=== PATIENT | female | born 1955 | race Caucasian/White ===

== ENCOUNTER 2018-08-20 19:50 | Inpatient (IN) | payer MEDICAID, OTHER ==
[~2018-08-20] VITALS: Ht 172.7 cm; Wt 69.5 kg
[~2018-08-20 19:50] MED LIST: NO HOME MEDS
[2018-08-20] MEDS ORDERED: loperamide 2mg capsule PO PRN (20:50)
[2018-08-20] MEDS ORDERED: acetaminophen 325mg tablet PO PRN ×2 (20:50)
[2018-08-20] MEDS ORDERED: mag hydrox/Alum hydrox/simeth 30ml oral suspension PO PRN (20:50)
[2018-08-20] MEDS ORDERED: tuberculin, purif. prot. deriv. 5 units/0.1ml ID ONE (20:50)
[2018-08-20] MEDS ORDERED: magnesium hydroxide 30ml (MOM) UD suspension PO PRN (20:50)
[2018-08-20 21:35] VITALS: BP 100/70
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
[2018-08-20] MEDS: LORazepam 1 MG tablet PO PRN (22:09)
[2018-08-21 07:26] LABS: HEMOGLOBIN A1C 5.2 % (4.5-6.2)
[2018-08-21 07:30] LABS: CHOL/HDL RATIO 2.1 (0.00-4.99); CHOLESTEROL 112 MG/DL (0-200); HDL CHOLESTEROL 53 MG/DL (35-60); LDL CHOLESTEROL 50 MG/DL (50-100); TRIGLYCERIDES 51 MG/DL (20-135)
[2018-08-21 08:00] VITALS: BP 99/57
--- NOTE | 2018-08-21 10:37 | NUR ---
Malnutrition consult: Pt reports 2-13# wt loss with decreased appetite per malnutrition risk screening with RN. No wt hx however patient's current wt appropriate with BMI of 24.8. Per mental health admission assessment pt with some memory loss. Patient with no documented decrease in muscle strength or edema. Pt currently on a regular diet with documented 75-100% PO intake meeting nutrient needs. Pt currently does not meet criteria for malnutrition. LBM 7/ documented as diarrhea, pt with Imodium PRN not yet given. Will continue to follow and monitor need for additional bowel care. Addendum: 08/21/18 at [address] Amended: Links added.
[2018-08-21] MEDS: hydrOXYzine 25 MG tablet PO PRN ×2 (11:54→21:48)
[2018-08-21 12:26] LABS: OCCULT BLOOD STOOL NEGATIVE (Neg)
--- NOTE | 2018-08-21 17:29 | NUR ---
Nursing Progress Note: Legal hold: Voluntary Client on involuntary status for GD Report received from JEROME Benjamin with use of SBAR: Why are they here: Assessment What has happened this shift: Patient asleep at change of shift and awake for breakfast. Patient friendly. Patient keep to herself and slept after group for a couple of hours. Patient went to afternoon group today. Patient denies SI/HI/AV Hallucinations. Patient states she is here because her meds make her have diarrhea x 4 months. Patient's brother sent patient due to screaming and agitation and needing adjustment in her medication. Patient had large BM in her depends which was soft but not diarrhea. Patient placed her depends in a trash can but she couldn't remember which trash can she placed it in. Finally smelly diaper found in orr BR. RN sent sample to lab. S/I, H/I: Denies A/VH: Denies Sleep: Isolates to room and naps ADL's: Self Group attendance: afternoon group Were meds taken: Medication compliant Any med S/E: None reported or observed Mental Status Exam Appearance: neat in green scrubs Eye contact: fair Behavior: Isolates to her room Speech: soft and minimal Mood: Depressed and anxious Affect: Depressed Thought process: Linear but no insight to why she is here Thought Content: Concerned about bowel movements Cognition: A&O x 3 Insight: poor Judgment: poor Interventions PRN's used: Atarax Therapeutic interventions: 1:1 assessment, active listening, medication administration and education, Q15 minute checks, maintained therapeutic milieu. Restraints/seclusion/emergency medication: N/A Justification of Continued Inpatient Treatment: The patient presents as having significant depressive symptoms that they interfere with any kind of self care. He continues to be gravely disabled. Pt needs continued monitoring of medication effectiveness and effects. Addendum: 08/21/18 at 1746 by Tala Conteh RN Undone
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
[2018-08-21 20:00] VITALS: BP 107/74
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
[2018-08-22] MEDS: buPROPion SR 100mg tab PO SCH ×2 (08:07→21:18)
[2018-08-22 08:08] VITALS: BP 117/66
[2018-08-22 11:05] LABS: ALBUMIN 3.3 G/DL (3.4-5.0); ANION GAP 6 (8-16); BLOOD UREA NITROGEN 10 MG/DL (7-18); BUN/CREATININE RATIO 13.2 (6.6-38.0); CALCIUM 8.4 MG/DL (8.5-10.1); CHLORIDE 107 MMOL/L (99-107); CREATININE 0.76 MG/DL (0.40-0.90); GLUCOSE 96 MG/DL (70-104); POTASSIUM 3.6 MMOL/L (3.5-5.1); SODIUM 141 MMOL/L (135-145); TOTAL CARBON DIOXIDE 27.9 MMOL/L (24-32); eGFR 77 ML/MIN
[2018-08-22] MEDS: hydrOXYzine 25 MG tablet PO PRN (13:50)
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
[2018-08-22] MEDS: LORazepam 1 MG tablet PO PRN (18:45)
[2018-08-22 20:00] VITALS: BP 114/59
[2018-08-22] MEDS: prazosin 1mg capsule PO SCH (21:00)
[2018-08-22] MEDS: mirtazapine 15mg tablet PO SCH (21:19)
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
[2018-08-23] MEDS: buPROPion SR 100mg tab PO SCH (07:59)
[2018-08-23 08:00] VITALS: BP 103/63
[2018-08-23] MEDS: hydrOXYzine 25 MG tablet PO PRN (11:09)
[2018-08-23] MEDS: LORazepam 1 MG tablet PO PRN (12:48)
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
--- NOTE | 2018-08-23 18:02 | NUR ---
NOTE ON 08-23-18 @ 4602 IS NOT FOR THIS CLIENT
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
[2018-08-23 20:00] VITALS: BP 101/64
[2018-08-23] MEDS: mirtazapine 15mg tablet PO SCH (20:24)
[2018-08-23] MEDS: buPROPion SR 150mg tablet PO SCH (20:25)
[2018-08-23] MEDS: prazosin 1mg capsule PO SCH (20:27)
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
[2018-08-24] MEDS: buPROPion SR 150mg tablet PO SCH ×2 (07:57→20:06)
[2018-08-24 08:00] VITALS: BP 99/52
[2018-08-24] MEDS: hydrOXYzine 25 MG tablet PO PRN ×2 (10:11→20:05)
[2018-08-24] MEDS: LORazepam 1 MG tablet PO PRN (11:41)
--- NOTE | 2018-08-24 12:59 | NUR ---
Initial: Pt admit to [facility] on voluntary hold for depression. Documented 75-100% PO intake on regular diet meeting nutrient needs. LBM 08/23. No edema or wounds. No nutrition diagnosis at this time. Will continue to follow. Recommendations: 1) Continue regular diet 2) Weekly wt Addendum: 08/24/18 at [address] Amended: Links added.
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
[2018-08-24 19:41] VITALS: BP 101/72
[2018-08-24] MEDS: mirtazapine 15mg tablet PO SCH (20:06)
[2018-08-24] MEDS: prazosin 1mg capsule PO SCH (20:44)
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
[2018-08-25 07:31] VITALS: BP 96/60
[2018-08-25] MEDS: buPROPion SR 150mg tablet PO SCH ×2 (08:15→20:33)
[2018-08-25] MEDS: LORazepam 1 MG tablet PO PRN ×2 (08:25→18:57)
[2018-08-25] MEDS: hydrOXYzine 25 MG tablet PO PRN (16:30)
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
[2018-08-25 20:00] VITALS: BP 119/69
[2018-08-25] MEDS: mirtazapine 15mg tablet PO SCH (20:33)
[2018-08-25] MEDS: prazosin 1mg capsule PO SCH (20:33)
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
[2018-08-26 07:22] VITALS: BP 92/58
[2018-08-26] MEDS: buPROPion SR 150mg tablet PO SCH ×2 (08:09→20:15)
[2018-08-26 08:20] VITALS: BP 95/55
[2018-08-26 08:31] LABS: BASOPHILS % (AUTO) 0.4 % (0-1); EOSINOPHILS # (AUTO) 0.1 X10'3 (0-0.9); EOSINOPHILS % (AUTO) 1.8 % (0-6); HEMATOCRIT 35.9 % (35.0-45.0); HEMOGLOBIN 12.2 g/dl (12.0-16.0); LYMPHOCYTES # (AUTO) 1.7 X10'3 (1.1-4.8); LYMPHOCYTES % (AUTO) 35.2 % (21-51); MEAN CORPUSCULAR HEMOGLOBIN 31.2 PG (27.0-31.0); MEAN CORPUSCULAR HGB CONC 33.9 g/dL (33.0-36.5); MEAN PLATELET VOLUME 6.6 FL (7.4-10.4); MONOCYTES # (AUTO) 0.3 X10'3 (0-0.9); MONOCYTES % (AUTO) 6.2 % (2-12); NEUTROPHILS # (AUTO) 2.8 X10'3 (1.8-7.7); NEUTROPHILS % (AUTO) 56.4 % (42-75); PLATELET COUNT 243 X10'3 (140-440); RED CELL DISTRIBUTION WIDTH 13.8 % (11.5-14.5); WHITE BLOOD COUNT 4.9 X10'3 (4.5-11.0)
[2018-08-26 08:38] LABS: ALANINE AMINOTRANSFERASE 26 U/L (12-78); ALBUMIN 2.9 G/DL (3.4-5.0); ALBUMIN/GLOBULIN RATIO 0.9 (1.1-1.5); ALKALINE PHOSPHATASE 91 IU/L (46-116); ANION GAP 8 (8-16); ASPARTATE AMINO TRANSFERASE 14 U/L (10-37); BILIRUBIN,TOTAL 0.2 MG/DL (0.1-1.0); BLOOD UREA NITROGEN 18 MG/DL (7-18); BUN/CREATININE RATIO 23.1 (6.6-38.0); CALCIUM 8.9 MG/DL (8.5-10.1); CHLORIDE 107 MMOL/L (99-107); CREATININE 0.78 MG/DL (0.40-0.90); GLUCOSE 88 MG/DL (70-104); POTASSIUM 4.2 MMOL/L (3.5-5.1); SODIUM 142 MMOL/L (135-145); TOTAL CARBON DIOXIDE 27.4 MMOL/L (24-32); eGFR 74 ML/MIN
[2018-08-26] MEDS: hydrOXYzine 25 MG tablet PO PRN ×2 (10:17→16:56)
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
[2018-08-26] MEDS: LORazepam 1 MG tablet PO PRN (19:23)
[2018-08-26 20:00] VITALS: BP 117/73
[2018-08-26] MEDS: mirtazapine 15mg tablet PO SCH (20:15)
[2018-08-26] MEDS: prazosin 1mg capsule PO SCH (20:15)
[2018-08-27] MEDS: buPROPion SR 150mg tablet PO SCH ×2 (07:28→20:41)
[2018-08-27 08:00] VITALS: BP 90/47
[2018-08-27] MEDS: hydrOXYzine 25 MG tablet PO PRN (10:41)
[2018-08-27] MEDS: LORazepam 1 MG tablet PO PRN (13:35)
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
[2018-08-27] MEDS: traZODone 150mg tablet PO SCH (20:40)
[2018-08-27] MEDS: mirtazapine 15mg tablet PO SCH (20:41)
[2018-08-27] MEDS: prazosin 1mg capsule PO SCH (20:41)
[2018-08-27 20:55] VITALS: BP 103/70
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
[2018-08-28] MEDS: buPROPion SR 150mg tablet PO SCH ×2 (07:40→20:21)
[2018-08-28] MEDS: hydrOXYzine 25 MG tablet PO PRN ×2 (07:41→18:15)
[2018-08-28 07:43] VITALS: BP 100/50
--- NOTE | 2018-08-28 07:53 | NUR ---
Art Therapy Group (continued): Patient was NOT able to follow all directives, choosing NOT to complete any art work,or journaling during the session. Pt. did remain for the entire group and was able to listen and comment during the group process. Pt. reports that she is "struggling with her past losses. " Pt. was provided with some homework: The Love Letter was provided for pt. to journal/process her own thoughts/feelings and unfinished business re: her loss of her mother and father. Pt. also choose to take the drawing and journaling activity to her room "to do later." Patient expressed appreciation for this additional support. Nya Love M.A., [facility] #[id number] [facility] Art Therapist Addendum: 08/28/18 at 0755 by Nya Love SS Amended: Links added.
[2018-08-28] MEDS: LORazepam 1 MG tablet PO PRN (16:18)
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
[2018-08-28 19:22] VITALS: BP 121/79
[2018-08-28] MEDS: mirtazapine 15mg tablet PO SCH (20:21)
[2018-08-28] MEDS: quetiapine 100mg tablet PO SCH (20:21)
[2018-08-28] MEDS: prazosin 1mg capsule PO SCH (20:21)
[2018-08-28] MEDS: traZODone 150mg tablet PO SCH (20:21)
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
[2018-08-29 08:00] VITALS: BP 90/57
[2018-08-29] MEDS: buPROPion SR 150mg tablet PO SCH ×2 (08:33→20:35)
[2018-08-29] MEDS: hydrOXYzine 25 MG tablet PO PRN ×2 (08:35→15:59)
[2018-08-29] MEDS: LORazepam 1 MG tablet PO PRN ×2 (11:01→18:39)
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
[2018-08-29 19:58] VITALS: BP 102/56
[2018-08-29] MEDS: mirtazapine 15mg tablet PO SCH (20:35)
[2018-08-29] MEDS: traZODone 150mg tablet PO SCH (20:35)
[2018-08-29] MEDS: prazosin 1mg capsule PO SCH (20:35)
[2018-08-29] MEDS: quetiapine 100mg tablet PO SCH (20:36)
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
[2018-08-30] MEDS: buPROPion SR 150mg tablet PO SCH ×2 (07:50→21:23)
[2018-08-30 08:00] VITALS: BP 98/50
[2018-08-30] MEDS: LORazepam 1 MG tablet PO PRN (10:13)
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
[2018-08-30 19:00] VITALS: BP 105/63
[2018-08-30] MEDS: traZODone 150mg tablet PO SCH (21:22)
[2018-08-30] MEDS: mirtazapine 15mg tablet PO SCH (21:22)
[2018-08-30] MEDS: quetiapine 100mg tablet PO SCH (21:23)
[2018-08-30 21:30] VITALS: BP 124/70
[2018-08-30] MEDS: prazosin 1mg capsule PO SCH (21:30)
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
[2018-08-31] MEDS: buPROPion SR 150mg tablet PO SCH ×2 (07:50→20:37)
[2018-08-31] MEDS: LORazepam 1 MG tablet PO PRN (07:50)
[2018-08-31 08:00] VITALS: BP 103/57
[2018-08-31] MEDS ORDERED: buPROPion SR 150mg tablet PO SCH (08:00)
--- NOTE | 2018-08-31 08:42 | NUR ---
reassessment: Pt PO 75-100% meals meeting needs. LBM 08/29. -10kg wt change noted since admit all standing scales likely error given PO. No nutrition concerns at this time. Recommendations: 1) Continue regular diet 2) Weekly wt Addendum: 08/31/18 at [address] Amended: Links added.
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
[2018-08-31 19:53] VITALS: BP 109/67
[2018-08-31] MEDS: quetiapine 100mg tablet PO SCH (20:38)
[2018-08-31] MEDS: traZODone 150mg tablet PO SCH (20:38)
[2018-08-31] MEDS: prazosin 1mg capsule PO SCH (20:38)
[2018-08-31] MEDS: mirtazapine 15mg tablet PO SCH (20:38)
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
[2018-09-01] MEDS: LORazepam 1 MG tablet PO PRN (07:06)
[2018-09-01] MEDS: buPROPion SR 150mg tablet PO SCH (07:06)
[2018-09-01 08:03] VITALS: BP 94/60
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
[2018-09-01] MEDS: quetiapine 100mg tablet PO SCH (20:27)
[2018-09-01] MEDS: prazosin 1mg capsule PO SCH (20:27)
[2018-09-01] MEDS: mirtazapine 15mg tablet PO SCH (20:29)
[2018-09-01 20:31] VITALS: BP 100/62
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
[2018-09-02] MEDS: buPROPion SR 150mg tablet PO SCH ×2 (07:39→12:49)
[2018-09-02] MEDS: LORazepam 1 MG tablet PO PRN ×2 (07:40→15:38)
[2018-09-02 08:00] VITALS: BP 91/63
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
[2018-09-02] MEDS ORDERED: venlafaxine XR 37.5mg cap (Q24H) PO ONE (18:30)
[2018-09-02] MEDS: hydrOXYzine 25 MG tablet PO PRN (19:54)
[2018-09-02 20:00] VITALS: BP 93/50
[2018-09-02] MEDS: prazosin 1mg capsule PO SCH (20:35)
[2018-09-02] MEDS: mirtazapine 15mg tablet PO SCH (20:35)
[2018-09-02] MEDS: quetiapine 100mg tablet PO SCH (20:35)
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
[2018-09-03 07:25] VITALS: BP 97/56
[2018-09-03] MEDS: lactose-reduced food (Ensure Enlive) - 237ml bottle PO SCH ×3 (08:00→18:00)
[2018-09-03] MEDS: buPROPion SR 150mg tablet PO SCH ×2 (08:32→12:29)
[2018-09-03] MEDS: venlafaxine XR 75mg capsule (Q24H) PO SCH (08:32)
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
--- NOTE | 2018-09-03 18:19 | NUR ---
DISCHARGE PLANNING: Patient's brother, Kunal Sanchez @ [phone], phone to ask about pt's ETA for D/C as [facility]. Spoke w/ Dr. Davi rivas he thought pt would be ready for D/C in a week or less. Phoned Mr. Sanchez back to update. Also updated pt. Viri Jones, ACSW
[2018-09-03] MEDS: hydrOXYzine 25 MG tablet PO PRN (19:15)
[2018-09-03 20:00] VITALS: BP 114/64
[2018-09-03] MEDS: prazosin 1mg capsule PO SCH (20:27)
[2018-09-03] MEDS: LORazepam 1 MG tablet PO PRN (20:27)
[2018-09-03] MEDS: quetiapine 100mg tablet PO SCH (20:28)
[2018-09-03] MEDS: mirtazapine 15mg tablet PO SCH (20:30)
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
[2018-09-04 07:54] VITALS: BP 98/61
[2018-09-04] MEDS: lactose-reduced food (Ensure Enlive) - 237ml bottle PO SCH ×3 (08:00→18:49)
[2018-09-04] MEDS: buPROPion SR 150mg tablet PO SCH ×2 (08:26→12:36)
[2018-09-04] MEDS: venlafaxine XR 75mg capsule (Q24H) PO SCH (08:27)
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
[2018-09-04] MEDS: hydrOXYzine 25 MG tablet PO PRN (18:59)
[2018-09-04 19:54] VITALS: BP 110/53
[2018-09-04] MEDS: mirtazapine 15mg tablet PO SCH (20:14)
[2018-09-04] MEDS: LORazepam 1 MG tablet PO PRN (20:14)
[2018-09-04] MEDS: prazosin 1mg capsule PO SCH (20:14)
[2018-09-04] MEDS: quetiapine 100mg tablet PO SCH (20:16)
--- NOTE | 2018-09-04 20:45 | NUR ---
Nursing Note: Pt. was sitting in the in Recreation Room and got up to walk to her room. She had an episode of dizziness with unsteady gait, which was witnessed by a staff member and she was helped to her room and encouraged to lay down. Pt. was encouraged to take deep breaths and try to relax, V/S assessed and WNL and she denies any SOB. Pt. reported that she had not consumed very much for meals or fluids today. This press writer provided her with HS snack and encouraged her to drink fluids to prevent dehydration, pt. voiced understanding and stated, "I'm feeling better." Educated pt. to push call light when needing to transfer per fall precautions, will continue to monitor. Addendum: 09/04/18 at 2133 by Carla Mccall RN Checked pt. BS after snack and was WNL, pt. denies any hx. of diabetes.
[2018-09-04 20:50] VITALS: BP 103/63
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
--- NOTE | 2018-09-05 04:30 | NUR ---
Nursing Note: Pt. awakens with an incontinent episode and is unable to fall back asleep. She becomes frustrated, anxious, and begins to make grunting sounds. Pt. also reports ongoing nightmares, despite administration of Prazosin. PRN Atrax administered, will endorse to AM shift and continue to monitor.
[2018-09-05] MEDS: hydrOXYzine 25 MG tablet PO PRN ×2 (04:57→21:49)
[2018-09-05 08:00] VITALS: BP 116/70
[2018-09-05] MEDS: lactose-reduced food (Ensure Enlive) - 237ml bottle PO SCH ×3 (08:00→18:54)
[2018-09-05] MEDS: buPROPion SR 150mg tablet PO SCH (08:58)
[2018-09-05] MEDS: venlafaxine XR 75mg capsule (Q24H) PO SCH (08:58)
[2018-09-05 11:35] VITALS: BP_SYST 105; BP_SYST 88; BP_DIAS 51; BP_DIAS 53
[2018-09-05] MEDS: LORazepam 1 MG tablet PO PRN (16:03)
[2018-09-05 16:17] VITALS: BP 109/62
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
[2018-09-05 19:29] VITALS: BP 97/51
[2018-09-05] MEDS ORDERED: quetiapine 100mg tablet PO SCH (21:00)
[2018-09-05] MEDS: mirtazapine 15mg tablet PO SCH (21:00)
[2018-09-05] MEDS: prazosin 1mg capsule PO SCH (21:01)
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
[2018-09-06 07:35] VITALS: BP 101/64
[2018-09-06] MEDS: buPROPion SR 150mg tablet PO SCH (08:12)
[2018-09-06] MEDS: venlafaxine XR 75mg capsule (Q24H) PO SCH (08:12)
[2018-09-06] MEDS: lactose-reduced food (Ensure Enlive) - 237ml bottle PO SCH ×3 (08:45→18:09)
[2018-09-06 08:46] LABS: ALANINE AMINOTRANSFERASE 55 U/L (12-78); ALBUMIN 3.4 G/DL (3.4-5.0); ALBUMIN/GLOBULIN RATIO 0.9 (1.1-1.5); ALKALINE PHOSPHATASE 114 IU/L (46-116); ANION GAP 8 (8-16); ASPARTATE AMINO TRANSFERASE 20 U/L (10-37); BILIRUBIN,TOTAL 0.3 MG/DL (0.1-1.0); BLOOD UREA NITROGEN 18 MG/DL (7-18); BUN/CREATININE RATIO 19.1 (6.6-38.0); CALCIUM 9.2 MG/DL (8.5-10.1); CHLORIDE 104 MMOL/L (99-107); CREATININE 0.94 MG/DL (0.40-0.90); GLUCOSE 93 MG/DL (70-104); POTASSIUM 4.4 MMOL/L (3.5-5.1); SODIUM 140 MMOL/L (135-145); eGFR 60 ML/MIN
--- NOTE | 2018-09-06 11:57 | NUR ---
DISCHARGE PLANNING: Spoke w/ pt's brother, Kunal Sanchez, the 's assisted living placement he thought pt could go to has an age limit of of 58 yrs. [facility] sent him to go look at [facility], he thought it would be okay for pt and in her [place], but they will not have bed available for about 2 weeks. Discussed pt's case w/ [employer] Associate Clint, he is familiar w/ [facility] and explained it is not an appropriate or safe placement option for pt and she would decompensate quickly there and asked me to notify pt's brother. Also discussed pt getting IHSS as she is applying for [employer] and possible a personal development coach thru [facility] if she is able to get [facility] Attend[facility] monies from the [facility], and to contact Nadine Peña. Phoned Kunal @ [phone] left message updating him on concerns and asked him to call this content writer. Also phoned Calli Peña @ [phone] and LM to see if she had any housing ideas. Viri Jones, ACSW
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
[2018-09-06] MEDS ORDERED: venlafaxine XR 37.5mg cap (Q24H) PO ONE (15:55)
[2018-09-06] MEDS ORDERED: docusate sod 100mg capsule PO ONE (16:25)
[2018-09-06 20:00] VITALS: BP 99/62
[2018-09-06] MEDS ORDERED: QUEtiapine 25mg tablet PO SCH (21:00)
[2018-09-06] MEDS: LORazepam 1 MG tablet PO PRN (21:26)
[2018-09-06 22:30] VITALS: BP 110/70
[2018-09-06] MEDS: docusate sod 100mg capsule PO SCH (22:31)
[2018-09-06] MEDS: mirtazapine 15mg tablet PO SCH (22:32)
[2018-09-06] MEDS: prazosin 1mg capsule PO SCH (22:32)
[2018-09-06] MEDS: quetiapine 100mg tablet PO SCH (22:33)
[2018-09-06] MEDS: QUEtiapine 25mg tablet PO SCH (22:33)
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
[2018-09-07 08:00] VITALS: BP 105/60
[2018-09-07] MEDS: vitamin D (cholecalciferol) 1,000 unit tablet PO SCH (08:21)
[2018-09-07] MEDS: docusate sod 100mg capsule PO SCH ×2 (08:21→20:28)
[2018-09-07] MEDS: venlafaxine XR 37.5mg cap (Q24H) PO SCH (08:21)
[2018-09-07] MEDS: venlafaxine XR 75mg capsule (Q24H) PO SCH (08:21)
[2018-09-07] MEDS: lactose-reduced food (Ensure Enlive) - 237ml bottle PO SCH ×3 (08:24→18:35)
[2018-09-07] MEDS: LORazepam 1 MG tablet PO PRN ×3 (08:48→19:23)
--- NOTE | 2018-09-07 10:27 | NUR ---
reassessment: Pt PO 75-100% meals meeting needs. LBM 09/06 receiving colace and MoM PRN. -10kg wt change noted since admit all standing scales likely error given PO. No nutrition concerns at this time. Recommendations: 1) Continue regular diet 2) routine bowel care 3) Weekly wt Addendum: 09/07/18 at [address] Amended: Links added.
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
--- NOTE | 2018-09-07 17:33 | NUR ---
Pt responds to internal stimuli frequently throughout the shift, had escalation of symptoms while in the shower today.
[2018-09-07 19:54] VITALS: BP 112/72
[2018-09-07] MEDS: quetiapine 100mg tablet PO SCH (20:22)
[2018-09-07] MEDS: prazosin 1mg capsule PO SCH (20:22)
[2018-09-07] MEDS: mirtazapine 15mg tablet PO SCH (20:22)
[2018-09-07] MEDS: QUEtiapine 25mg tablet PO SCH (20:22)
--- NOTE | 2018-09-07 20:32 | NUR ---
DISCHARGE PLANNING: Spoke w/ Dr. Devine and he said we will be keeping pt here for a while and agreed pt will need a higher level of care then R & B. Spoke w/ pt's brother, Kunal @ [phone], updated him and explained pt will need at least a B & C w/ IHSS. He will bring [employer] paperwork and pickup IHSS paperwork tomorrow and bring both up tomorrow for pt to sign.Then he will turn in. Also discussed VA Aid & Attendance he will research w/VA serves but unlikely she will qualify as appears she served during peace time. Informed him about contact w/ [facility] and [facility] and gave him referral to [facility] and explained both would require IHSS services. Viri Jones, ACSW
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
[2018-09-08 08:00] VITALS: BP 91/55
[2018-09-08] MEDS: docusate sod 100mg capsule PO SCH ×2 (08:14→20:29)
[2018-09-08] MEDS: venlafaxine XR 37.5mg cap (Q24H) PO SCH (08:15)
[2018-09-08] MEDS: vitamin D (cholecalciferol) 1,000 unit tablet PO SCH (08:15)
[2018-09-08] MEDS: venlafaxine XR 75mg capsule (Q24H) PO SCH (08:15)
[2018-09-08] MEDS: lactose-reduced food (Ensure Enlive) - 237ml bottle PO SCH ×3 (08:20→18:12)
[2018-09-08] MEDS: LORazepam 1 MG tablet PO PRN ×2 (10:33→16:15)
[2018-09-08] MEDS: cyanocobalamin 500mcg tablet PO SCH (13:34)
[2018-09-08] MEDS: folic acid 1mg tablet PO SCH (13:34)
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
[2018-09-08] MEDS: prazosin 1mg capsule PO SCH (20:30)
[2018-09-08] MEDS: quetiapine 100mg tablet PO SCH (20:30)
[2018-09-08] MEDS: mirtazapine 15mg tablet PO SCH (20:30)
[2018-09-08 20:31] VITALS: BP 118/71
[2018-09-08] MEDS: QUEtiapine 25mg tablet PO SCH (20:31)
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
[2018-09-09] MEDS: vitamin D (cholecalciferol) 1,000 unit tablet PO SCH (07:38)
[2018-09-09] MEDS: venlafaxine XR 37.5mg cap (Q24H) PO SCH (07:38)
[2018-09-09] MEDS: folic acid 1mg tablet PO SCH (07:38)
[2018-09-09] MEDS: docusate sod 100mg capsule PO SCH ×2 (07:38→20:23)
[2018-09-09] MEDS: cyanocobalamin 500mcg tablet PO SCH (07:39)
[2018-09-09] MEDS: venlafaxine XR 75mg capsule (Q24H) PO SCH (07:39)
[2018-09-09] MEDS: lactose-reduced food (Ensure Enlive) - 237ml bottle PO SCH ×3 (08:00→18:00)
[2018-09-09 08:39] VITALS: BP 100/71
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
[2018-09-09] MEDS: LORazepam 1 MG tablet PO PRN (18:29)
[2018-09-09] MEDS: prazosin 1mg capsule PO SCH (20:23)
[2018-09-09] MEDS: QUEtiapine 25mg tablet PO SCH (20:24)
[2018-09-09] MEDS: quetiapine 100mg tablet PO SCH (20:24)
[2018-09-09] MEDS: mirtazapine 15mg tablet PO SCH (21:05)
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
[2018-09-10] MEDS: venlafaxine XR 75mg capsule (Q24H) PO SCH (07:55)
[2018-09-10] MEDS: cyanocobalamin 500mcg tablet PO SCH (07:56)
[2018-09-10] MEDS: vitamin D (cholecalciferol) 1,000 unit tablet PO SCH (07:56)
[2018-09-10] MEDS: folic acid 1mg tablet PO SCH (07:56)
[2018-09-10] MEDS: docusate sod 100mg capsule PO SCH ×2 (07:56→20:13)
[2018-09-10] MEDS ORDERED: venlafaxine XR 75mg capsule (Q24H) PO SCH (08:00)
[2018-09-10] MEDS: lactose-reduced food (Ensure Enlive) - 237ml bottle PO SCH ×3 (08:00→18:00)
[2018-09-10 08:34] VITALS: BP 90/50
[2018-09-10] MEDS: LORazepam 1 MG tablet PO PRN ×3 (09:08→20:14)
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
[2018-09-10 20:00] VITALS: BP 104/68
[2018-09-10] MEDS: QUEtiapine 25mg tablet PO SCH (20:14)
[2018-09-10] MEDS: quetiapine 100mg tablet PO SCH (20:15)
[2018-09-10] MEDS: prazosin 1mg capsule PO SCH (20:15)
[2018-09-10] MEDS: mirtazapine 15mg tablet PO SCH (20:15)
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
[2018-09-11 08:00] VITALS: BP 94/60
[2018-09-11] MEDS: cyanocobalamin 500mcg tablet PO SCH (08:05)
[2018-09-11] MEDS: folic acid 1mg tablet PO SCH (08:05)
[2018-09-11] MEDS: docusate sod 100mg capsule PO SCH ×2 (08:05→21:46)
[2018-09-11] MEDS: venlafaxine XR 75mg capsule (Q24H) PO SCH (08:06)
[2018-09-11] MEDS: vitamin D (cholecalciferol) 1,000 unit tablet PO SCH (08:06)
[2018-09-11] MEDS: lactose-reduced food (Ensure Enlive) - 237ml bottle PO SCH ×3 (08:09→18:22)
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
[2018-09-11] MEDS: LORazepam 1 MG tablet PO PRN (19:09)
[2018-09-11 19:44] VITALS: BP 108/63
[2018-09-11] MEDS: prazosin 1mg capsule PO SCH (21:45)
[2018-09-11] MEDS: quetiapine 100mg tablet PO SCH (21:45)
[2018-09-11] MEDS: QUEtiapine 25mg tablet PO SCH (21:46)
[2018-09-11] MEDS: mirtazapine 15mg tablet PO SCH (21:46)
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
[2018-09-12 08:00] VITALS: BP 91/58
[2018-09-12] MEDS: vitamin D (cholecalciferol) 1,000 unit tablet PO SCH (08:45)
[2018-09-12] MEDS: folic acid 1mg tablet PO SCH (08:45)
[2018-09-12] MEDS: docusate sod 100mg capsule PO SCH ×2 (08:46→20:39)
[2018-09-12] MEDS: cyanocobalamin 500mcg tablet PO SCH (08:46)
[2018-09-12] MEDS: lactose-reduced food (Ensure Enlive) - 237ml bottle PO SCH ×3 (08:46→18:00)
[2018-09-12] MEDS: venlafaxine XR 75mg capsule (Q24H) PO SCH (08:46)
--- NOTE | 2018-09-12 13:04 | NUR ---
toll test desk worker 1:1 The undersigned clinician met with pt individually per request from treatment team. Intervention= attuned empathic listening with resource eye position and biolateral sound. Pt. reports a reduction in emotional distress felt in her chest from a 7 to a 3. Pt reports she has not felt this relaxed in a long time. Plan= continue to collaborate with treatment team and support pt in reducing her emotional distress. Ritu Shanks LMFT
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
[2018-09-12] MEDS: LORazepam 1 MG tablet PO PRN (16:06)
[2018-09-12] MEDS ORDERED: LORazepam 1 MG tablet PO ONE (17:10)
[2018-09-12 20:00] VITALS: BP 115/64
[2018-09-12] MEDS: quetiapine 100mg tablet PO SCH (20:40)
[2018-09-12] MEDS: mirtazapine 15mg tablet PO SCH (21:00)
[2018-09-12] MEDS: prazosin 1mg capsule PO SCH (21:00)
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
[2018-09-13 08:00] VITALS: BP 92/52
[2018-09-13] MEDS: cyanocobalamin 500mcg tablet PO SCH (08:21)
[2018-09-13] MEDS: vitamin D (cholecalciferol) 1,000 unit tablet PO SCH (08:21)
[2018-09-13] MEDS: venlafaxine XR 75mg capsule (Q24H) PO SCH (08:21)
[2018-09-13] MEDS: docusate sod 100mg capsule PO SCH ×2 (08:21→20:59)
[2018-09-13] MEDS: folic acid 1mg tablet PO SCH (08:21)
[2018-09-13] MEDS: lactose-reduced food (Ensure Enlive) - 237ml bottle PO SCH ×3 (09:00→18:05)
[2018-09-13] MEDS: LORazepam 1 MG tablet PO PRN ×2 (10:57→21:50)
--- NOTE | 2018-09-13 14:09 | NUR ---
Reassessment: PO intake fluctuates documented with 50% and 75-100% of meals. Noted that pt has been receiving Ensure Enlive TID and documented with 100% PO intake meeting nutrient needs. Wt +1.[address] assessment. LBM 09/12. No nutrition diagnosis at this time. Will continue to follow. Recommendations: 1) Continue regular diet 2) Continue Ensure Enlive TID; monitor need for d/c of ONS 3) routine bowel care 4) Weekly wt Addendum: 09/13/18 at [address] Amended: Links added.
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
[2018-09-13] MEDS ORDERED: LORazepam 1 MG tablet PO PRN (18:55)
[2018-09-13 20:00] VITALS: BP 112/67
[2018-09-13] MEDS: quetiapine 100mg tablet PO SCH (20:59)
[2018-09-13] MEDS: mirtazapine 15mg tablet PO SCH (20:59)
[2018-09-13] MEDS: prazosin 1mg capsule PO SCH (20:59)
--- NOTE | 2018-09-13 23:03 | NUR ---
DISCHARGE PLANNING: Shira, from [facility] came to interview pt on 09/11/18 and asked if she could have some time to think about her decision to accept pt. This life insurance underwriter had said of course. In regards to 's visit, Shira left a message that she was going to have to decline accepting pt, as she had to consider the wellbeing of all her other residents. She also said she notified the pt's brother. The pt has not been notified as this life insurance underwriter was unable to contact pt's brother to see if he wanted to tell her and find out where he is in the MediCal and IHSS process. The pt appears to be improving again and this life insurance underwriter is concerned the news may cause another down turn. Viri Jones, ACSW
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
[2018-09-14 07:00] VITALS: BP 94/55
[2018-09-14] MEDS: lactose-reduced food (Ensure Enlive) - 237ml bottle PO SCH ×2 (08:00→13:00)
[2018-09-14] MEDS: folic acid 1mg tablet PO SCH (08:07)
[2018-09-14] MEDS: venlafaxine XR 75mg capsule (Q24H) PO SCH (08:07)
[2018-09-14] MEDS: docusate sod 100mg capsule PO SCH ×2 (08:07→20:53)
[2018-09-14] MEDS: vitamin D (cholecalciferol) 1,000 unit tablet PO SCH (08:07)
[2018-09-14] MEDS: cyanocobalamin 500mcg tablet PO SCH (08:07)
[2018-09-14] MEDS: LORazepam 1 MG tablet PO PRN (11:05)
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
[2018-09-14 20:45] VITALS: BP 128/64
[2018-09-14] MEDS: prazosin 1mg capsule PO SCH (20:52)
[2018-09-14] MEDS: mirtazapine 15mg tablet PO SCH (20:53)
[2018-09-14] MEDS: quetiapine 100mg tablet PO SCH (20:54)
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
[2018-09-15] MEDS: LORazepam 1 MG tablet PO PRN ×3 (04:13→20:51)
[2018-09-15] MEDS: docusate sod 100mg capsule PO SCH ×2 (07:42→20:35)
[2018-09-15] MEDS: vitamin D (cholecalciferol) 1,000 unit tablet PO SCH (07:42)
[2018-09-15] MEDS: venlafaxine XR 75mg capsule (Q24H) PO SCH (07:43)
[2018-09-15] MEDS: cyanocobalamin 500mcg tablet PO SCH (07:44)
[2018-09-15] MEDS: folic acid 1mg tablet PO SCH (07:44)
[2018-09-15] MEDS: lactose-reduced food (Ensure Enlive) - 237ml bottle PO SCH ×3 (08:00→18:27)
--- NOTE | 2018-09-15 14:00 | NUR ---
DISCHARGE APPOINTMENTS/PLANNING: SARA made TC to [facility] [phone] and left message requesting return contact to schedule post hospital follow up / tx appointments. SARA made TC to Stephanie Gifford [phone], [facility] with the [place] Team. The voicemail provided contact information for SARA Falguni and reported there are not to be messages left at this number. SARA made TC to Falguni with the Social Work team at [phone] for ACCESS services. SARA left message requesting a return contact. Stephanie Ruvalcaba, Laborer [employer] TOLL TESTBOARD WORKER [id number] Supervised by Clint Arrieta, [id number] Addendum: 09/15/18 at 1441 by Stephanie Ruvalcaba SS Addition to note: SARA Montes De Oca contact this inspector automatic typewriter and instructed this inspector automatic typewriter to contact [place] Team for medical. SARA contacted [place] team at [phone], who after reading pt assessment from 08/20/2018, referred this inspector automatic typewriter to the SARA pak [place] team at [phone], who transferred this inspector automatic typewriter directly to despatch clerk at [phone], who scheduled pt for new pt appointment on 09/19/2018 at 2:30p. She emphasized pt MUST attend this appointment due to the provider taking a two to three week vacation starting September 22. This inspector automatic typewriter agreed to discuss with provider and work toward discharge by this date to prevent a lack of continuity in care. Stephanie Ruvalcaba, [id number] Addendum: 09/15/18 at 1647 by Stephanie Ruvalcaba SS Addition: SW and treating Doctor met w/ pt to discuss tx planning. Pt reports desire to enter [facility]. SW explained concern regarding pt's sx of loud noises and nightmare reactions causing discontent for other residents in the facility. SW explained that pt would need to complete some brain spotting or EMDR modalities prior to entry, in hopes this would reduce sx. Pt agreed. SW also explained the importance of physical and sleep hygiene. Pt reports she understands. SW informed pt of her scheduled appointments for discharge and Doctor discussed medications w/ pt. Pt continues to agree she will likely be ready for discharge by Saturday this week. Stephanie Ruvalcaba, [id number]
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
[2018-09-15 20:00] VITALS: BP_SYST 103; BP_SYST 128; BP_DIAS 64
[2018-09-15] MEDS: quetiapine 100mg tablet PO SCH (20:35)
[2018-09-15] MEDS: prazosin 1mg capsule PO SCH (20:35)
[2018-09-15] MEDS: mirtazapine 15mg tablet PO SCH (20:35)
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
[2018-09-16 08:00] VITALS: BP 111/60
[2018-09-16] MEDS: docusate sod 100mg capsule PO SCH ×2 (08:09→21:00)
[2018-09-16] MEDS: cyanocobalamin 500mcg tablet PO SCH (08:09)
[2018-09-16] MEDS: vitamin D (cholecalciferol) 1,000 unit tablet PO SCH (08:09)
[2018-09-16] MEDS: folic acid 1mg tablet PO SCH (08:09)
[2018-09-16] MEDS: venlafaxine XR 75mg capsule (Q24H) PO SCH (08:09)
[2018-09-16] MEDS: lactose-reduced food (Ensure Enlive) - 237ml bottle PO SCH ×2 (08:13→12:45)
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
[2018-09-16] MEDS: LORazepam 1 MG tablet PO PRN (18:42)
[2018-09-16] MEDS: prazosin 1mg capsule PO SCH (21:00)
[2018-09-16] MEDS: quetiapine 100mg tablet PO SCH (21:00)
[2018-09-16] MEDS: mirtazapine 15mg tablet PO SCH (21:00)
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
[2018-09-17] MEDS: folic acid 1mg tablet PO SCH (07:25)
[2018-09-17] MEDS: vitamin D (cholecalciferol) 1,000 unit tablet PO SCH (07:26)
[2018-09-17] MEDS: cyanocobalamin 500mcg tablet PO SCH (07:26)
[2018-09-17] MEDS: docusate sod 100mg capsule PO SCH ×2 (07:26→20:26)
[2018-09-17] MEDS: venlafaxine XR 75mg capsule (Q24H) PO SCH (07:27)
[2018-09-17 08:00] VITALS: BP 95/52
[2018-09-17] MEDS: lactose-reduced food (Ensure Enlive) - 237ml bottle PO SCH ×4 (08:00→18:05)
[2018-09-17] MEDS ORDERED: clonazePAM 0.5mg tablet PO ONE (08:15)
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
[2018-09-17 19:12] VITALS: BP 131/73
[2018-09-17] MEDS: prazosin 1mg capsule PO SCH (20:26)
[2018-09-17] MEDS: quetiapine 100mg tablet PO SCH (20:26)
[2018-09-17] MEDS: mirtazapine 15mg tablet PO SCH (20:26)
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
[2018-09-18] MEDS: LORazepam 1 MG tablet PO PRN (02:22)
[2018-09-18 07:51] VITALS: BP 99/50
[2018-09-18] MEDS: cyanocobalamin 500mcg tablet PO SCH (08:03)
[2018-09-18] MEDS: lactose-reduced food (Ensure Enlive) - 237ml bottle PO SCH ×3 (08:03→17:00)
[2018-09-18] MEDS: folic acid 1mg tablet PO SCH (08:03)
[2018-09-18] MEDS: docusate sod 100mg capsule PO SCH ×2 (08:03→20:16)
[2018-09-18] MEDS: vitamin D (cholecalciferol) 1,000 unit tablet PO SCH (08:03)
[2018-09-18] MEDS: venlafaxine XR 75mg capsule (Q24H) PO SCH (08:03)
[2018-09-18] MEDS: clonazePAM 0.5mg tablet PO SCH (14:32)
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
[2018-09-18 20:00] VITALS: BP 139/79
[2018-09-18] MEDS: prazosin 1mg capsule PO SCH (20:16)
[2018-09-18] MEDS: mirtazapine 15mg tablet PO SCH (20:17)
[2018-09-18] MEDS: quetiapine 100mg tablet PO SCH (20:17)
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
[2018-09-19] MEDS: LORazepam 1 MG tablet PO PRN (05:16)
[2018-09-19 07:00] VITALS: BP 99/56
[2018-09-19] MEDS: folic acid 1mg tablet PO SCH (08:00)
[2018-09-19] MEDS: docusate sod 100mg capsule PO SCH ×2 (08:00→21:52)
[2018-09-19] MEDS: vitamin D (cholecalciferol) 1,000 unit tablet PO SCH (08:00)
[2018-09-19] MEDS: lactose-reduced food (Ensure Enlive) - 237ml bottle PO SCH ×3 (08:00→18:00)
[2018-09-19] MEDS: cyanocobalamin 500mcg tablet PO SCH (08:01)
[2018-09-19] MEDS: clonazePAM 0.5mg tablet PO SCH ×2 (08:01→15:07)
[2018-09-19] MEDS: venlafaxine XR 75mg capsule (Q24H) PO SCH (08:02)
--- NOTE | 2018-09-19 10:44 | NUR ---
Reassessment: PO intake continues to fluctuate overall 75-100% with some 25-50% of meals. Pt with 100% PO of Ensure Enlive TID; pt likely meeting nutrient needs. LBM 09/17, pt with routine Colace and MoM PRN. Will continue to follow and monitor need for additional bowel care. Recommendations: 1) Continue regular diet 2) Continue Ensure Enlive TID 3) routine bowel care; monitor need for additional 4) Weekly wt Addendum: 09/19/18 at [address] Amended: Links added.
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
[2018-09-19 20:00] VITALS: BP 100/70
[2018-09-19] MEDS ORDERED: quetiapine 100mg tablet PO SCH (21:00)
[2018-09-19] MEDS: quetiapine 100mg tablet PO SCH (21:52)
[2018-09-19] MEDS: prazosin 1mg capsule PO SCH (21:52)
[2018-09-19] MEDS: mirtazapine 15mg tablet PO SCH (21:53)
[2018-09-19] MEDS: QUEtiapine 25mg tablet PO SCH (21:53)
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
[2018-09-20] MEDS: venlafaxine XR 75mg capsule (Q24H) PO SCH (07:42)
[2018-09-20] MEDS: docusate sod 100mg capsule PO SCH ×2 (07:42→20:09)
[2018-09-20] MEDS: vitamin D (cholecalciferol) 1,000 unit tablet PO SCH (07:42)
[2018-09-20] MEDS: folic acid 1mg tablet PO SCH (07:43)
[2018-09-20] MEDS: clonazePAM 0.5mg tablet PO SCH ×2 (07:43→17:39)
[2018-09-20] MEDS: cyanocobalamin 500mcg tablet PO SCH (07:43)
[2018-09-20 07:53] VITALS: BP 115/55
[2018-09-20] MEDS: lactose-reduced food (Ensure Enlive) - 237ml bottle PO SCH ×3 (08:00→18:00)
--- NOTE | 2018-09-20 10:48 | NUR ---
Reassessment: PO intake continues to fluctuate overall 75-100% with some 25-50% of meals. Pt with 100% PO of Ensure Enlive TID; pt likely meeting nutrient needs. LBM 09/19, pt with routine Colace and MoM PRN. Will continue to follow and monitor need for additional bowel care. Recommendations: 1) Continue regular diet 2) Continue Ensure Enlive TID 3) routine bowel care; monitor need for additional 4) Weekly wt Addendum: 09/20/18 at [address] Amended: Links added.
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
[2018-09-20 20:00] VITALS: BP 122/70
[2018-09-20] MEDS: QUEtiapine 25mg tablet PO SCH (20:08)
[2018-09-20] MEDS: prazosin 1mg capsule PO SCH (20:09)
[2018-09-20] MEDS: quetiapine 100mg tablet PO SCH (20:09)
[2018-09-20] MEDS: mirtazapine 15mg tablet PO SCH (20:10)
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
[2018-09-21] MEDS: docusate sod 100mg capsule PO SCH ×2 (07:47→21:30)
[2018-09-21] MEDS: venlafaxine XR 75mg capsule (Q24H) PO SCH (07:47)
[2018-09-21] MEDS: folic acid 1mg tablet PO SCH (07:47)
[2018-09-21] MEDS: vitamin D (cholecalciferol) 1,000 unit tablet PO SCH (07:47)
[2018-09-21] MEDS: cyanocobalamin 500mcg tablet PO SCH (07:47)
[2018-09-21] MEDS: clonazePAM 0.5mg tablet PO SCH ×2 (07:47→14:30)
[2018-09-21 08:00] VITALS: BP_SYST 100; BP_SYST 101; BP_DIAS 63; BP_DIAS 64
[2018-09-21] MEDS: lactose-reduced food (Ensure Enlive) - 237ml bottle PO SCH ×3 (08:45→18:51)
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
[2018-09-21 19:44] VITALS: BP 125/67
[2018-09-21] MEDS: mirtazapine 15mg tablet PO SCH (21:30)
[2018-09-21] MEDS: quetiapine 100mg tablet PO SCH (21:30)
[2018-09-21] MEDS: QUEtiapine 25mg tablet PO SCH (21:30)
[2018-09-21] MEDS: prazosin 1mg capsule PO SCH (21:30)
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
[2018-09-22] MEDS: docusate sod 100mg capsule PO SCH ×2 (07:39→21:28)
[2018-09-22] MEDS: folic acid 1mg tablet PO SCH (07:39)
[2018-09-22] MEDS: cyanocobalamin 500mcg tablet PO SCH (07:39)
[2018-09-22] MEDS: vitamin D (cholecalciferol) 1,000 unit tablet PO SCH (07:39)
[2018-09-22] MEDS: venlafaxine XR 75mg capsule (Q24H) PO SCH (07:39)
[2018-09-22] MEDS: clonazePAM 0.5mg tablet PO SCH ×2 (07:39→17:27)
[2018-09-22 07:50] VITALS: BP 109/60
[2018-09-22] MEDS: lactose-reduced food (Ensure Enlive) - 237ml bottle PO SCH ×3 (08:05→18:00)
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
[2018-09-22 20:25] VITALS: BP 106/69
[2018-09-22] MEDS ORDERED: prazosin 1mg capsule PO SCH (21:00)
[2018-09-22] MEDS: quetiapine 100mg tablet PO SCH (21:25)
[2018-09-22] MEDS: QUEtiapine 25mg tablet PO SCH (21:28)
[2018-09-22] MEDS: mirtazapine 15mg tablet PO SCH (21:28)
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
[2018-09-23 07:32] VITALS: BP 100/55
[2018-09-23] MEDS: vitamin D (cholecalciferol) 1,000 unit tablet PO SCH (08:40)
[2018-09-23] MEDS: folic acid 1mg tablet PO SCH (08:40)
[2018-09-23] MEDS: docusate sod 100mg capsule PO SCH ×2 (08:40→21:15)
[2018-09-23] MEDS: cyanocobalamin 500mcg tablet PO SCH (08:41)
[2018-09-23] MEDS: venlafaxine XR 75mg capsule (Q24H) PO SCH (08:42)
[2018-09-23] MEDS: clonazePAM 0.5mg tablet PO SCH ×2 (08:42→14:51)
[2018-09-23] MEDS: lactose-reduced food (Ensure Enlive) - 237ml bottle PO SCH ×3 (08:43→18:00)
[2018-09-23] MEDS: QUEtiapine 25mg tablet PO SCH ×2 (12:51→21:16)
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
[2018-09-23] MEDS: LORazepam 1 MG tablet PO PRN (18:11)
[2018-09-23 19:42] VITALS: BP 114/68
[2018-09-23] MEDS: prazosin 1mg capsule PO SCH (21:15)
[2018-09-23] MEDS: quetiapine 100mg tablet PO SCH (21:16)
[2018-09-23] MEDS: mirtazapine 15mg tablet PO SCH (21:16)
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
[2018-09-24] MEDS: QUEtiapine 25mg tablet PO SCH ×3 (07:30→21:32)
[2018-09-24 08:00] VITALS: BP 98/56
[2018-09-24] MEDS: docusate sod 100mg capsule PO SCH ×2 (08:32→21:31)
[2018-09-24] MEDS: vitamin D (cholecalciferol) 1,000 unit tablet PO SCH (08:32)
[2018-09-24] MEDS: venlafaxine XR 75mg capsule (Q24H) PO SCH (08:32)
[2018-09-24] MEDS: cyanocobalamin 500mcg tablet PO SCH (08:33)
[2018-09-24] MEDS: clonazePAM 0.5mg tablet PO SCH ×2 (08:33→13:16)
[2018-09-24] MEDS: lactose-reduced food (Ensure Enlive) - 237ml bottle PO SCH ×3 (08:34→18:00)
[2018-09-24] MEDS: folic acid 1mg tablet PO SCH (08:34)
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
[2018-09-24 20:00] VITALS: BP 122/70
[2018-09-24] MEDS: prazosin 1mg capsule PO SCH (21:31)
[2018-09-24] MEDS: quetiapine 100mg tablet PO SCH (21:32)
[2018-09-24] MEDS: mirtazapine 15mg tablet PO SCH (21:32)
[2018-09-25] MEDS: clonazePAM 0.5mg tablet PO SCH ×2 (08:24→13:30)
[2018-09-25] MEDS: cyanocobalamin 500mcg tablet PO SCH (08:24)
[2018-09-25] MEDS: vitamin D (cholecalciferol) 1,000 unit tablet PO SCH (08:25)
[2018-09-25] MEDS: QUEtiapine 25mg tablet PO SCH ×3 (08:25→21:55)
[2018-09-25] MEDS: venlafaxine XR 75mg capsule (Q24H) PO SCH (08:26)
[2018-09-25] MEDS: lactose-reduced food (Ensure Enlive) - 237ml bottle PO SCH ×3 (08:26→18:00)
[2018-09-25] MEDS: docusate sod 100mg capsule PO SCH ×2 (08:26→21:54)
[2018-09-25] MEDS: folic acid 1mg tablet PO SCH (08:26)
[2018-09-25 08:48] VITALS: BP 111/51
[2018-09-25] MEDS ORDERED: OLAN5TAB5 PO (14:12)
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
[2018-09-25 19:00] VITALS: BP 113/58
[2018-09-25] MEDS: prazosin 1mg capsule PO SCH (21:54)
[2018-09-25] MEDS: mirtazapine 15mg tablet PO SCH (21:55)
[2018-09-25] MEDS: quetiapine 100mg tablet PO SCH (21:55)
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
[2018-09-26] MEDS: clonazePAM 0.5mg tablet PO SCH ×2 (07:49→14:00)
[2018-09-26] MEDS: vitamin D (cholecalciferol) 1,000 unit tablet PO SCH (07:49)
[2018-09-26] MEDS: cyanocobalamin 500mcg tablet PO SCH (07:49)
[2018-09-26] MEDS: docusate sod 100mg capsule PO SCH (07:50)
[2018-09-26] MEDS: venlafaxine XR 75mg capsule (Q24H) PO SCH (07:50)
[2018-09-26] MEDS: folic acid 1mg tablet PO SCH (07:50)
[2018-09-26] MEDS: QUEtiapine 25mg tablet PO SCH ×2 (07:50→12:46)
[2018-09-26] MEDS ORDERED: QUET50TA22 PO (07:53)
[2018-09-26] MEDS ORDERED: QUET25TA34 PO (07:53)
[2018-09-26] MEDS ORDERED: CLON0.5T12 PO (07:53)
[2018-09-26] MEDS ORDERED: PRAZ1CAP5 PO (07:53)
[2018-09-26] MEDS ORDERED: QUET300T19 PO (07:53)
[2018-09-26] MEDS ORDERED: VENL75CA61 PO (07:53)
[2018-09-26] MEDS ORDERED: MIRT30TA8 PO (07:53)
[2018-09-26] MEDS ORDERED: CHOL100046 PO (07:53)
[2018-09-26] MEDS ORDERED: COL100C PO (07:53)
[2018-09-26 08:00] VITALS: BP 105/56
[2018-09-26] MEDS: lactose-reduced food (Ensure Enlive) - 237ml bottle PO SCH ×2 (08:00→13:06)
--- NOTE | 2018-09-26 08:57 | NUR ---
Reassessment: PO intake more stable at 75-100% of meals and 100% of ONS meeting nutrient needs. Wt +1.[address] assessment. LBM 09/24. No nutrition diagnosis at this time. Will continue to follow. Recommendations: 1) Continue regular diet 2) Continue Ensure Enlive TID; monitor need for discontinuation of ONS with good PO intake of meals 3) routine bowel care; monitor need for additional Addendum: 09/26/18 at [address] Amended: Links added.
--- NOTE | 2018-09-26 15:21 | NUR ---
DISCHARGE NOTE: IVY Florence was accompanied by her brother, JEROME Mckinnon and Adriana Lopez off the unit @ 1500. She was discharging to her brothers home in [place] via her brother's car. Pt has all of her belongings with her in two separate bags. She has a follow up appointment at the [place] with Dr Marquez on October 10 @ 1300. She had an upbeat mood and denied any SI. Pt has shown much improvement over her stay on the unit, no acute physical or emotional distress observed or reported. Nicotine replacements offered and denied.
== END 2018-09-26 15:00 | disposition home or self-care (01) | DRG 751 ==
LOC: ADULT MH 19:50
PROVIDERS: ADMIT Psychiatry & Neurology Psychiatry; ATTEND Psychiatry & Neurology Psychiatry
DX: F33.2 Major depressive disorder, recurrent severe without psychotic features (principal); E83.51 Hypocalcemia; F41.9 Anxiety disorder, unspecified; E87.6 Hypokalemia; R82.71 Bacteriuria; F43.10 Post-traumatic stress disorder, unspecified; G47.00 Insomnia, unspecified; E03.9 Hypothyroidism, unspecified; Z82.49 Family history of ischemic heart disease and other diseases of the circulatory system; Z81.8 Family history of other mental and behavioral disorders; Z82.3 Family history of stroke; Z90.710 Acquired absence of both cervix and uterus; Z90.49 Acquired absence of other specified parts of digestive tract; Z59.0 Homelessness; Z79.899 Other long term (current) drug therapy; Z85.42 Personal history of malignant neoplasm of other parts of uterus
CPT/HCPCS: 36415; 80048; 80053; 80061; 82272; 82330; 82948; 83036; 84443; 85025; 86304; 87081; Z7610

== ENCOUNTER 2018-10-07 17:05 | Emergency (ER) | payer MEDICAID, OTHER ==
[~2018-10-07] VITALS: Ht 172.7 cm; Wt 63.6 kg
[~2018-10-07 17:05] MED LIST changes: +CHOL100046 PO; +CLON0.5T12 PO; +COL100C PO; +MIRT30TA8 PO; -NO HOME MEDS; +PRAZ1CAP5 PO; +QUET25TA34 PO; +QUET300T19 PO; +QUET50TA22 PO; +VENL75CA61 PO
--- NOTE | 2018-10-07 18:53 | NUR ---
[facility] [address] a Psychologist from the [place]. The hold is not valid in [facility]. This patient is not placed on a 1799 by our ER MD. Patient is getting a basic medical workup at this time. Patient is cooperative, understanding, and well oriented.
[2018-10-07 19:07] LABS: BASOPHILS % (AUTO) 0.3 % (0-1); EOSINOPHILS # (AUTO) 0.1 X10'3 (0-0.9); EOSINOPHILS % (AUTO) 0.8 % (0-6); HEMATOCRIT 40.3 % (35.0-45.0); HEMOGLOBIN 13.6 g/dl (12.0-16.0); LYMPHOCYTES # (AUTO) 1.9 X10'3 (1.1-4.8); LYMPHOCYTES % (AUTO) 28.5 % (21-51); MEAN CORPUSCULAR HEMOGLOBIN 31.2 PG (27.0-31.0); MEAN CORPUSCULAR HGB CONC 33.6 g/dL (33.0-36.5); MEAN CORPUSCULAR VOLUME 92.8 FL (78-98); MEAN PLATELET VOLUME 6.2 FL (7.4-10.4); MONOCYTES # (AUTO) 0.5 X10'3 (0-0.9); MONOCYTES % (AUTO) 6.7 % (2-12); NEUTROPHILS # (AUTO) 4.3 X10'3 (1.8-7.7); NEUTROPHILS % (AUTO) 63.7 % (42-75); PLATELET COUNT 300 X10'3 (140-440); RED BLOOD COUNT 4.35 X10'6 (4.20-5.60); RED CELL DISTRIBUTION WIDTH 14.3 % (11.5-14.5); WHITE BLOOD COUNT 6.8 X10'3 (4.5-11.0)
[2018-10-07 19:21] LABS: ALANINE AMINOTRANSFERASE 23 U/L (12-78); ALBUMIN 3.8 G/DL (3.4-5.0); ALBUMIN/GLOBULIN RATIO 0.9 (1.1-1.5); ALKALINE PHOSPHATASE 123 IU/L (46-116); ANION GAP 13 (8-16); ASPARTATE AMINO TRANSFERASE 9 U/L (10-37); BILIRUBIN,TOTAL 0.3 MG/DL (0.1-1.0); BLOOD UREA NITROGEN 21 MG/DL (7-18); BUN/CREATININE RATIO 21.2 (6.6-38.0); CALCIUM 9.3 MG/DL (8.5-10.1); CHLORIDE 104 MMOL/L (99-107); CREATININE 0.99 MG/DL (0.40-0.90); ETHANOL < 0.010 GM/DL (0.0-0.010); GLUCOSE 106 MG/DL (70-104); SODIUM 142 MMOL/L (135-145); TOTAL CARBON DIOXIDE 25.3 MMOL/L (24-32); TOTAL PROTEIN 7.9 G/DL (6.4-8.2); eGFR 56 ML/MIN
--- NOTE | 2018-10-07 21:00 | NUR ---
Patient is placed on a 1799 by the ER MD. Plan is to give patient Ativan for anxiety. [facility] to follow up on this patient tomorrow.
[2018-10-07 21:23] LABS: UA COLLECTION TYPE CLN CATCH MIDSTREAM
[2018-10-07 21:24] LABS: CLARITY,URINE CLEAR (Clear); COLOR,URINE YELLOW (Yellow); GLUCOSE, URINE NEGATIVE (Neg); KETONES,URINE NEGATIVE (Neg); LEUKOCYTE ESTERASE ,URINE SMALL (Neg); NITRITES, URINE NEGATIVE (Neg); OCCULT BLOOD,URINE NEGATIVE (Neg); PROTEIN,URINE NEGATIVE (Neg); UROBILINOGEN,URINE 0.2 E.U/dL (0.2-1.0)
[2018-10-07 21:31] LABS: URINE AMPHETAMINE SCREEN NEGATIVE (Neg); URINE BARBITUATE SCREEN NEGATIVE (Neg); URINE BENZODIAZEPINES SCREEN NEGATIVE (Neg); URINE CANNABINOID SCREEN NEGATIVE (Neg); URINE COCAINE SCREEN NEGATIVE (Neg); URINE METHADONE SCREEN NEGATIVE (Neg); URINE OPIATE SCREEN NEGATIVE (Neg); URINE PHENCYCLIDINE SCREEN NEGATIVE (Neg)
[2018-10-07 21:32] LABS: BACTERIA,URINE 3+ /HPF (Neg); MUCUS STRANDS NONE SEEN /LPF (Neg); RBC,URINE NONE SEEN /HPF (0-2); SQUAMOUS EPITHELIAL CELL,UR NONE SEEN /LPF (FEW)
[2018-10-07] MEDS ORDERED: quetiapine 100mg tablet PO SCH (21:35)
[2018-10-07] MEDS ORDERED: quetiapine 100mg tablet PO ONE (21:35)
[2018-10-07] MEDS ORDERED: LORazepam 2 mg/ml vial IM ONE (21:35)
[2018-10-08] MEDS ORDERED: loperamide 2mg capsule PO ONE (00:55)
--- NOTE | 2018-10-08 01:14 | NUR ---
Patient is given Imodium for diarrhea. Patient is resting quietly, returns to sleep.
[2018-10-08] MEDS ORDERED: CHOL2000 PO (03:09)
[2018-10-08] MEDS ORDERED: CLON-528 PO (03:11)
[2018-10-08] MEDS ORDERED: DOCU-20 PO ×2 (03:16)
[2018-10-08] MEDS ORDERED: MIRT30TA8 PO (03:19)
[2018-10-08] MEDS ORDERED: PRAZ2CAP2 PO (03:22)
[2018-10-08] MEDS ORDERED: PRAZ1CAP5 PO (03:22)
[2018-10-08] MEDS ORDERED: QUET25TA PO ×3 (03:25→03:40)
[2018-10-08] MEDS ORDERED: QUET-1 PO (03:33)
[2018-10-08] MEDS ORDERED: EFF25T PO (03:46)
[2018-10-08] MEDS: docusate sod 100mg capsule PO SCH ×3 (08:00→20:00)
[2018-10-08] MEDS: clonazePAM 0.5mg tablet PO SCH ×2 (08:28→20:00)
[2018-10-08] MEDS: vitamin D (cholecalciferol) 1,000 unit tablet PO SCH (08:28)
[2018-10-08] MEDS: QUEtiapine 25mg tablet PO SCH ×2 (08:28→14:34)
[2018-10-08] MEDS: venlafaxine XR 75mg capsule (Q24H) PO SCH (08:29)
[2018-10-08] MEDS ORDERED: CEPH500C5 PO (13:14)
--- NOTE | 2018-10-08 15:42 | NUR ---
called [facility]. They were not aware of the patient being transported down there. They states a package needs to sent and reviewed. At this time the patient has no safe discharge from [facility]. The pt will remain here until proper placement can be found
--- NOTE | 2018-10-08 18:30 | NUR ---
Assumed patient care. The patient has a discharge written. Patients brother is unable to pick this patient up until the am at 0900 hrs. This patient was evaluated by [facility], all holds have been released. This investment underwriter spoke with patients brother. He will contact the [place] psychologist in the am to address possible transport to [facility]. residential direct support professional is advised. Dr. Salinas is advised. We will continue patient on her meds tonight including treatment for UTI.
[2018-10-08] MEDS ORDERED: LORazepam 1 MG tablet PO ONE (19:35)
[2018-10-08] MEDS ORDERED: nitrofuran/nitrofuran macrocrysal 100 MG capsule PO ONE (20:00)
--- NOTE | 2018-10-08 20:30 | NUR ---
This patient ate dinner, read from a book, took evening meds. In view from the nursing station.
[2018-10-08] MEDS ORDERED: quetiapine 100mg tablet PO SCH (21:00)
[2018-10-08] MEDS ORDERED: QUEtiapine 25mg tablet PO SCH (21:00)
[2018-10-08] MEDS ORDERED: prazosin 1mg capsule PO SCH ×2 (21:00)
[2018-10-08] MEDS ORDERED: mirtazapine 15mg tablet PO SCH (21:00)
[2018-10-08] MEDS ORDERED: non-formulary drug (Prazosin Hcl 1 CAP) PO SCH (21:00)
--- NOTE | 2018-10-08 21:30 | NUR ---
Patient has been medication compliant. She ate a full dinner. In bed now sleeping. No diarrhea on this shift. Patient is well oriented. She denies S/I at this time.
--- NOTE | 2018-10-09 02:55 | NUR ---
Breaking primary RN, pt is in bed supine, eyes closed, no s/s of distress observed
--- NOTE | 2018-10-09 05:10 | NUR ---
Patient has been sleeping throughout the night. In view from the nursing station.
[2018-10-09 05:46] VITALS: BP 111/72
--- NOTE | 2018-10-09 06:45 | NUR ---
Pt resting with eyes closed, effortless respirations observed.
[2018-10-09] MEDS ORDERED: nitrofuran/nitrofuran macrocrysal 100 MG capsule PO ONE (07:25)
[2018-10-09] MEDS: docusate sod 100mg capsule PO SCH (08:00)
[2018-10-09] MEDS: clonazePAM 0.5mg tablet PO SCH (08:17)
[2018-10-09] MEDS: vitamin D (cholecalciferol) 1,000 unit tablet PO SCH (08:18)
[2018-10-09] MEDS: QUEtiapine 25mg tablet PO SCH (08:18)
[2018-10-09] MEDS: venlafaxine XR 75mg capsule (Q24H) PO SCH (08:18)
== END 2018-10-09 09:53 | disposition home or self-care (01) ==
LOC: ER 17:06
DX: F31.9 Bipolar disorder, unspecified (principal); N39.0 Urinary tract infection, site not specified; I10 Essential (primary) hypertension; Z79.1 Long term (current) use of non-steroidal anti-inflammatories (NSAID); Z79.899 Other long term (current) drug therapy; Z90.710 Acquired absence of both cervix and uterus
CPT/HCPCS: 36415; 80053; 80305; 80320; 81001; 85025; 96372; 99285; J2060

== ENCOUNTER 2019-03-29 13:23 | Emergency (ER) | payer MEDICAID, MEDICARE ==
[~2019-03-29] VITALS: Ht 160 cm; Wt 56.8 kg
[~2019-03-29 13:23] MED LIST changes: -CHOL100046 PO; +CHOL2000 PO; +CLON-528 PO; -CLON0.5T12 PO; -COL100C PO; +DOCU-20 PO; +EFF25T PO; +PRAZ2CAP2 PO; +QUET-1 PO; +QUET25TA PO; -QUET25TA34 PO; -QUET300T19 PO; -QUET50TA22 PO; -VENL75CA61 PO
[2019-03-29 13:55] VITALS: BP 117/78
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
[2019-03-29] MEDS ORDERED: OLAN5TAB5 PO (17:42)
[2019-03-29] MEDS ORDERED: OXYB5TAB16 PO (17:42)
== END 2019-03-29 13:58 | disposition home or self-care (01) ==
LOC: ER 13:23
DX: F43.20 Adjustment disorder, unspecified (principal); F43.10 Post-traumatic stress disorder, unspecified; F31.9 Bipolar disorder, unspecified; Z90.710 Acquired absence of both cervix and uterus; Z79.899 Other long term (current) drug therapy
CPT/HCPCS: 99283

== ENCOUNTER 2019-10-19 23:43 | Emergency (ER) | payer MEDICARE, MEDICAID ==
[~2019-10-19] VITALS: Ht 172.7 cm; Wt 61.4 kg
[~2019-10-19 23:43] MED LIST changes: -CHOL2000 PO; -CLON-528 PO; -DOCU-20 PO; -EFF25T PO; -MIRT30TA8 PO; +OLAN5TAB5 PO; +OXYB5TAB16 PO; -PRAZ1CAP5 PO; -PRAZ2CAP2 PO; -QUET-1 PO
[2019-10-20 00:49] LABS: BASOPHILS % (AUTO) 0.6 % (0-1); EOSINOPHILS # (AUTO) 0.1 X10'3 (0-0.9); EOSINOPHILS % (AUTO) 1.2 % (0-6); HEMATOCRIT 31.5 % (35.0-45.0); HEMOGLOBIN 10.8 g/dl (12.0-16.0); LYMPHOCYTES # (AUTO) 1.7 X10'3 (1.1-4.8); LYMPHOCYTES % (AUTO) 32.6 % (21-51); MEAN CORPUSCULAR HEMOGLOBIN 32.9 PG (27.0-31.0); MEAN CORPUSCULAR HGB CONC 34.4 g/dL (33.0-36.5); MEAN CORPUSCULAR VOLUME 95.8 FL (78-98); MEAN PLATELET VOLUME 6.2 FL (7.4-10.4); MONOCYTES # (AUTO) 0.3 X10'3 (0-0.9); MONOCYTES % (AUTO) 6.1 % (2-12); NEUTROPHILS # (AUTO) 3.1 X10'3 (1.8-7.7); NEUTROPHILS % (AUTO) 59.5 % (42-75); PLATELET COUNT 250 X10'3 (140-440); RED BLOOD COUNT 3.28 X10'6 (4.20-5.60); RED CELL DISTRIBUTION WIDTH 13.8 % (11.5-14.5); WHITE BLOOD COUNT 5.2 X10'3 (4.5-11.0)
[2019-10-20 01:05] LABS: ALANINE AMINOTRANSFERASE 13 U/L (12-78); ALBUMIN 2.9 G/DL (3.4-5.0); ALBUMIN/GLOBULIN RATIO 0.9 (1.1-1.5); ALKALINE PHOSPHATASE 85 IU/L (46-116); ANION GAP 9 (8-16); ASPARTATE AMINO TRANSFERASE 9 U/L (10-37); BILIRUBIN,TOTAL 0.4 MG/DL (0.1-1.0); BLOOD UREA NITROGEN 12 MG/DL (7-18); CHLORIDE 109 MMOL/L (99-107); CREATININE 0.75 MG/DL (0.40-0.90); ETHANOL < 0.010 GM/DL (0.0-0.010); GLUCOSE 96 MG/DL (70-104); SODIUM 144 MMOL/L (135-145); TOTAL CARBON DIOXIDE 25.8 MMOL/L (24-32); TOTAL PROTEIN 6.1 G/DL (6.4-8.2); eGFR 78 ML/MIN
[2019-10-20 01:09] LABS: POTASSIUM 2.9 MMOL/L (3.5-5.1)
[2019-10-20 01:22] LABS: ACETAMINOPHEN < 2.0 UG/ML (10-30)
[2019-10-20] MEDS ORDERED: magnesium oxide 400mg tablet PO ONE (01:35)
[2019-10-20] MEDS ORDERED: potassium Cl 20 mEq SR tablet PO STA (01:35)
[2019-10-20 02:58] LABS: CLARITY,URINE CLOUDY (Clear); COLOR,URINE YELLOW (Yellow); GLUCOSE, URINE NEGATIVE (Neg); KETONES,URINE NEGATIVE (Neg); LEUKOCYTE ESTERASE ,URINE LARGE (Neg); NITRITES, URINE NEGATIVE (Neg); OCCULT BLOOD,URINE MODERATE (Neg); PROTEIN,URINE TRACE mg/dl (Neg); UROBILINOGEN,URINE 0.2 E.U/dL (0.2-1.0)
[2019-10-20 02:59] LABS: UA COLLECTION TYPE CLN CATCH MIDSTREAM
[2019-10-20 03:09] LABS: BACTERIA,URINE 4+ /HPF (Neg); SQUAMOUS EPITHELIAL CELL,UR MODERATE /LPF (FEW); WBC,URINE 50-100 /HPF (0-4)
[2019-10-20 03:11] LABS: URINE AMPHETAMINE SCREEN NEGATIVE (Neg); URINE BARBITUATE SCREEN NEGATIVE (Neg); URINE BENZODIAZEPINES SCREEN NEGATIVE (Neg); URINE CANNABINOID SCREEN NEGATIVE (Neg); URINE COCAINE SCREEN NEGATIVE (Neg); URINE METHADONE SCREEN NEGATIVE (Neg); URINE OPIATE SCREEN NEGATIVE (Neg); URINE PHENCYCLIDINE SCREEN NEGATIVE (Neg)
[2019-10-20 05:52] VITALS: BP 106/64
[2019-10-20] MEDS ORDERED: OLANZapine 5mg rapidly disint. tablet PO ONE (06:05)
--- NOTE | 2019-10-20 06:35 | NUR ---
FAXED PACKET [facility]
--- NOTE | 2019-10-20 07:44 | NUR ---
pt is resting. no issues at this time
--- NOTE | 2019-10-20 08:00 | NUR ---
pt is up eating breakfast.
[2019-10-20 09:29] LABS: ALBUMIN 2.5 G/DL (3.4-5.0); ANION GAP 6 (8-16); BLOOD UREA NITROGEN 11 MG/DL (7-18); BUN/CREATININE RATIO 18.3 (6.6-38.0); CALCIUM 7.9 MG/DL (8.5-10.1); CHLORIDE 109 MMOL/L (99-107); GLUCOSE 87 MG/DL (70-104); POTASSIUM 3.9 MMOL/L (3.5-5.1); SODIUM 142 MMOL/L (135-145); TOTAL CARBON DIOXIDE 26.6 MMOL/L (24-32); eGFR > 90 ML/MIN
[2019-10-20] MEDS ORDERED: Melatonin 3mg tablet PO SCH ×2 (21:00)
== END 2019-10-20 15:52 ==
LOC: ER 23:44
DX: E87.6 Hypokalemia (principal); F31.9 Bipolar disorder, unspecified; F03.90 Unspecified dementia, unspecified severity, without behavioral disturbance, psychotic disturbance, mood disturbance, and anxiety; Z79.899 Other long term (current) drug therapy
CPT/HCPCS: 36415; 80048; 80053; 80305; 80320; 80329; 81001; 85025; 99285

== ENCOUNTER 2019-10-26 00:08 | Emergency (ER) | payer MEDICARE, MEDICAID ==
[~2019-10-26] VITALS: Ht 172.7 cm; Wt 63.0 kg
--- NOTE | 2019-10-26 00:27 | NUR ---
lab at bedside to draw blood
[2019-10-26] MEDS ORDERED: UNABLE TO OBTAIN (00:46)
[2019-10-26 00:49] LABS: BASOPHILS % (AUTO) 0.5 % (0-1); EOSINOPHILS # (AUTO) 0.1 X10'3 (0-0.9); EOSINOPHILS % (AUTO) 1.3 % (0-6); HEMATOCRIT 32.5 % (35.0-45.0); HEMOGLOBIN 11.1 g/dl (12.0-16.0); LYMPHOCYTES % (AUTO) 36.2 % (21-51); MEAN CORPUSCULAR HEMOGLOBIN 32.7 PG (27.0-31.0); MEAN CORPUSCULAR HGB CONC 34.3 g/dL (33.0-36.5); MEAN CORPUSCULAR VOLUME 95.4 FL (78-98); MEAN PLATELET VOLUME 6.4 FL (7.4-10.4); MONOCYTES # (AUTO) 0.4 X10'3 (0-0.9); MONOCYTES % (AUTO) 6.2 % (2-12); NEUTROPHILS # (AUTO) 3.2 X10'3 (1.8-7.7); NEUTROPHILS % (AUTO) 55.8 % (42-75); PLATELET COUNT 253 X10'3 (140-440); RED CELL DISTRIBUTION WIDTH 13.5 % (11.5-14.5); WHITE BLOOD COUNT 5.6 X10'3 (4.5-11.0)
[2019-10-26 01:00] LABS: ALANINE AMINOTRANSFERASE 14 U/L (12-78); ALBUMIN 3.1 G/DL (3.4-5.0); ALBUMIN/GLOBULIN RATIO 0.9 (1.1-1.5); ALKALINE PHOSPHATASE 91 IU/L (46-116); ANION GAP 9 (8-16); ASPARTATE AMINO TRANSFERASE 9 U/L (10-37); BILIRUBIN,TOTAL 0.4 MG/DL (0.1-1.0); BLOOD UREA NITROGEN 17 MG/DL (7-18); BUN/CREATININE RATIO 23.6 (6.6-38.0); CALCIUM 8.3 MG/DL (8.5-10.1); CHLORIDE 109 MMOL/L (99-107); CREATININE 0.72 MG/DL (0.40-0.90); GLUCOSE 92 MG/DL (70-104); POTASSIUM 3.4 MMOL/L (3.5-5.1); SODIUM 143 MMOL/L (135-145); TOTAL PROTEIN 6.4 G/DL (6.4-8.2); eGFR 81 ML/MIN
--- NOTE | 2019-10-26 01:16 | NUR ---
pt a&ox2, unsure of exact date. Knows president and [place] and [facility] and 2020. Reports she lives with her brother and "we dont get along very well". Tonight she was "really very happy...i had a good day today...a really good day". States she was watching a tv show and her brother promptly came into the room and changed the channel and this upset her. She states she walked to her neighbors house. Pt with stable vs. Agreeable to straight cath as she reports she is unable to void. She reorts she came [facility] and wants some help. States she has been working with [facility]PS and "I need their help". States Officer Kevin (who brought her in [facility] and knows her well per Pt) is aware of her situation and said to be patient with the process and she will be able to get help. [facility] but has not been able to see anyone recently. States she does not have any current medication perscriptions.
[2019-10-26] MEDS ORDERED: NO HOME MEDS (01:23)
[2019-10-26 01:35] LABS: ETHANOL < 0.010 GM/DL (0.0-0.010)
[2019-10-26 01:58] LABS: URINE HCG NEGATIVE (NEG)
--- NOTE | 2019-10-26 01:59 | NUR ---
DRESSED IN GREEN SCRUBS. PROVIDED DISPOSABLE UNDERWARE AND A PAD SHE HAS EPISODES OF PARTIAL INCONTINENCE AND USUALLY WEARS A DEPENDS AND DOES NOT WANT TO WEAR A DIAPER. BUSINESS PROGRAMMER, ARNAV, UPDATED, AND DECISION MADE TO PROVIDE UNDERWARE AND PAD AT THIS TIME. PT REQUESTED TO TRY TO UPDATE HER BROTHER TO BRING HER SOME OF HER BRIEFS. PT IS COOPERATIVE WITH ALL CARE. PROVIDED SANDWICH AND JUICE. ALLOWED STRAIGHT CATH WITH NO PROBLEMS. DENIES ANY SI, MENTAL HEALTH HISTORY , OR HEARING ANY VOICES. PT NOTED TO OCCASIONALLY BE TALKING TO HERSELF.
[2019-10-26 02:20] LABS: URINE AMPHETAMINE SCREEN NEGATIVE (Neg); URINE BARBITUATE SCREEN NEGATIVE (Neg); URINE BENZODIAZEPINES SCREEN NEGATIVE (Neg); URINE CANNABINOID SCREEN NEGATIVE (Neg); URINE COCAINE SCREEN NEGATIVE (Neg); URINE METHADONE SCREEN NEGATIVE (Neg); URINE OPIATE SCREEN NEGATIVE (Neg); URINE PHENCYCLIDINE SCREEN NEGATIVE (Neg)
[2019-10-26] MEDS ORDERED: potassium Cl 20 mEq SR tablet PO STA (02:22)
--- NOTE | 2019-10-26 02:40 | NUR ---
MEDICALLY CLEARED FOR MENTAL HEALTH EVAL. PT LYING ON THE GURNEY ON HER RIGHT SIDE. GIVEN WARM BLANKETS. EYES CLOSED. RR [address] WIGGINS UPDATED JAYLON PT HAD AT ONE POINT TAKEN ZYPREXA AND SEROQUEL, BUT NO LONGER TAKES ANY MEDS. REPORTS IF PT HAS ANY ISSUES THEN SHE WILL ORDER MEDS, OTHERWISE, NO NEW ORDERS.
--- NOTE | 2019-10-26 03:02 | NUR ---
PT HAS A SMALL STUFFED ANIMAL PIG THAT IS HER "SECURITY BLANKET" PER REORTS FROM PRIOR RNIFEOMA. DISTRIBUTOR OF DIRECTORIES, ARNAV AWARE AND DECISION MADE THAT OK AT THIS TIME TO ALLOW PT TO HAVE THIS ITEM.
--- NOTE | 2019-10-26 03:03 | NUR ---
REPORT TO JEROME LOO. PT MOVED FROM ER BED 7 TO OVERFLOW 21. UP TO BR TO VOID WITH STEAY GAIT . PT GIVEN KDUR 40 MEQ AND APPLESAUCE.
--- NOTE | 2019-10-26 03:18 | NUR ---
Patient transferred from main ED without difficulty. She is currently sleeping in her gurney.
--- NOTE | 2019-10-26 03:32 | NUR ---
PATIENT'S PACKET WAS SENT TO [facility].
--- NOTE | 2019-10-26 06:30 | NUR ---
pt walking in front of nurses station asking about the name of the officer which brought her here ,as per pt officer was nice to her.informed that we don't know the name ,walked back to the bed quietly.
--- NOTE | 2019-10-26 07:43 | NUR ---
pt laying in bed talking to herself.will cont to monitor.
--- NOTE | 2019-10-26 07:56 | NUR ---
mh eval came ,social professionals needed to be contacted.paged the social service .
--- NOTE | 2019-10-26 09:29 | NUR ---
pt sitting in her bed holding her soft toy snuggling like a baby around her arm.
--- NOTE | 2019-10-26 11:00 | NUR ---
pt walking in the hallway,no distress noted,will cont to monitor.
--- NOTE | 2019-10-26 12:30 | NUR ---
pt came to nurses station asking about lunch,informed that lunch will be served soon,pt verbalized understanding.
--- NOTE | 2019-10-26 13:30 | NUR ---
pt requested for paper and pen to write down,marker offered to the pt ,pt happy and went back to bed.
--- NOTE | 2019-10-26 14:04 | NUR ---
pt sitting up in bed writing on the paper with marker.
--- NOTE | 2019-10-26 16:59 | NUR ---
pt sitting on the side of the bed reading her magzine.will cont to monitor.
--- NOTE | 2019-10-26 17:33 | NUR ---
lillian lucero at bedside taking vitals of the pt.
--- NOTE | 2019-10-26 19:01 | NUR ---
PT HAD BM AND URINATED IN UNDERWEAR IN BED. LINENS CHANGED AND NEW CLOTHING AND BRIEF PROVIDED. PT BACK IN BED AND LYING COMFORTABLY, NO OTHER NEEDS AT THIS TIME
--- NOTE | 2019-10-26 19:14 | NUR ---
TALKED WITH BROTHER ON PHONE, HE REPORTED PT DOES NOT HAVE ANY PRESCRIBED MEDICATIONS SHE TAKES AT HOME. PT IS RESTLESS AND CALLING OUT. NOTIFIED ECHO OLIVEROS AND HE ORDERD 10 MG ZYPREXA PO HS PER PREVIOUS MED REC.
--- NOTE | 2019-10-26 20:59 | NUR ---
PT AMBULATED TO BATHROOM, REQUEST FOR NEW BRIEF. BRIEF, WIPES, AND ASSISTANCE PROVIDED. PT AMBUALTED BACK TO BED. NO OTHER NEEDS AT THIS TIME
[2019-10-26] MEDS ORDERED: OLANZapine 2.5MG tablet PO SCH (21:00)
--- NOTE | 2019-10-26 22:00 | NUR ---
PT APPEARS ASLEEP, RR EVEN AND UNLABORED. WILL CONTINUE TO MONITOR
--- NOTE | 2019-10-26 23:00 | NUR ---
PT APPEARS ASLEEP, RR EVEN AND UNLABORED. WILL CONTINUE TO MONITOR
--- NOTE | 2019-10-27 | NUR ---
PT APPEARS ASLEEP, RR EVEN AND UNLABORED. WILL CONTINUE TO MONITOR
--- NOTE | 2019-10-27 01:00 | NUR ---
PT APPEARS ASLEEP, RR EVEN AND UNLABORED. WILL CONTINUE TO MONITOR
--- NOTE | 2019-10-27 02:00 | NUR ---
PT APPEARS ASLEEP, RR EVEN AND UNLABORED. WILL CONTINUE TO MONITOR
--- NOTE | 2019-10-27 03:00 | NUR ---
PT APPEARS ASLEEP, RR EVEN AND UNLABORED. WILL CONTINUE TO MONITOR
--- NOTE | 2019-10-27 04:00 | NUR ---
PT APPEARS ASLEEP, RR EVEN AND UNLABORED. WILL CONTINUE TO MONITOR
--- NOTE | 2019-10-27 05:00 | NUR ---
PT ASLEEP, RR EVEN AND UNLABORED. WILL CONTINUE TO MONITOR
--- NOTE | 2019-10-27 14:34 | NUR ---
CALLED AND LEFT MESSAGE FOR KAT, PTS BROTHER TO COME AND [employer] TRUCK DRIVER IVY. SHE IS READY TO GO HOME. LEFT PHONE NUMBER FOR KAT TO CALL US BACK. THEN CALLED PET[place]A TO LET HER KNOW. SHE ADVISED TO HAVE [facility] TO [facility] AND ALSO APPLY FOR IHSS ASSISTANCE.
--- NOTE | 2019-10-27 15:31 | NUR ---
CALLED KAT AND HE WILL BE COMING TO GET HIS SISTER. SAID ABOUT 25 MINUTES.
[2019-10-27 16:51] LABS: CLARITY,URINE CLOUDY (Clear); COLOR,URINE YELLOW (Yellow); GLUCOSE, URINE NEGATIVE (Neg); KETONES,URINE NEGATIVE (Neg); LEUKOCYTE ESTERASE ,URINE SMALL (Neg); NITRITES, URINE NEGATIVE (Neg); OCCULT BLOOD,URINE NEGATIVE (Neg); PROTEIN,URINE NEGATIVE (Neg); UROBILINOGEN,URINE 0.2 E.U/dL (0.2-1.0)
[2019-10-27 17:11] LABS: UA COLLECTION TYPE CLN CATCH MIDSTREAM
--- NOTE | 2019-10-27 17:12 | NUR ---
CALLED KAT AGAIN, NO ANSWER BUT DID LEAVE MESSAGE.
[2019-10-27 17:13] LABS: BACTERIA,URINE 4+ /HPF (Neg); RBC,URINE NONE SEEN /HPF (0-2); SQUAMOUS EPITHELIAL CELL,UR FEW /LPF (FEW); WBC CLUMPS,URINE FEW /HPF (NEGATIVE)
[2019-10-27] MEDS ORDERED: NITR100C6 PO (17:50)
[2019-10-27 17:51] VITALS: BP 118/70
[2019-10-27] MEDS ORDERED: nitrofuran/nitrofuran macrocrysal 100 MG capsule PO SCH (20:00)
== END 2019-10-27 18:56 | disposition home or self-care (01) ==
LOC: ER 00:10
DX: F79 Unspecified intellectual disabilities (principal); E87.6 Hypokalemia; F03.90 Unspecified dementia, unspecified severity, without behavioral disturbance, psychotic disturbance, mood disturbance, and anxiety; F31.9 Bipolar disorder, unspecified; Z90.710 Acquired absence of both cervix and uterus; Z79.899 Other long term (current) drug therapy
CPT/HCPCS: 36415; 80053; 80305; 80320; 81001; 81025; 85025; 87088; 99285

== ENCOUNTER 2020-01-15 12:11 | Emergency (ER) | payer MEDICARE, MEDICAID ==
[~2020-01-15] VITALS: Ht 172.7 cm; Wt 61.4 kg
[~2020-01-15 12:11] MED LIST changes: +NITR100C6 PO; +NO HOME MEDS
--- NOTE | 2020-01-15 13:15 | NUR ---
TOLERATED LUNCH WELL. PATIENT ANXIOUS AND WANTS TO LEAVE UNIT. REDIRECTED BY STAFF AND SECURITY. PATIENT CONTINUES TO BE ANXIOUS AND UNWILLING TO REST IN BED.
[2020-01-15] MEDS ORDERED: LORazepam 1 MG tablet PO ONE ×2 (13:25→13:30)
[2020-01-15] MEDS ORDERED: LORazepam 0.5 MG tablet PO ONE ×2 (13:30)
[2020-01-15] MEDS ORDERED: OLANZapine **IM** 10 mg inj. IM ONE (13:55)
--- NOTE | 2020-01-15 14:30 | NUR ---
Pt is resting at this time. Pt has even and unlabored respirations. Will have casting assistant attempt to draw the lab work shortly.
[2020-01-15 15:28] LABS: BASOPHILS % (AUTO) 0.5 % (0-1); EOSINOPHILS % (AUTO) 0.6 % (0-6); HEMATOCRIT 34.9 % (35.0-45.0); HEMOGLOBIN 11.8 g/dl (12.0-16.0); LYMPHOCYTES # (AUTO) 1.3 X10'3 (1.1-4.8); LYMPHOCYTES % (AUTO) 26.8 % (21-51); MEAN CORPUSCULAR HEMOGLOBIN 31.2 PG (27.0-31.0); MEAN CORPUSCULAR HGB CONC 33.8 g/dL (33.0-36.5); MEAN CORPUSCULAR VOLUME 92.3 FL (78-98); MEAN PLATELET VOLUME 6.7 FL (7.4-10.4); MONOCYTES # (AUTO) 0.3 X10'3 (0-0.9); MONOCYTES % (AUTO) 5.8 % (2-12); NEUTROPHILS # (AUTO) 3.3 X10'3 (1.8-7.7); NEUTROPHILS % (AUTO) 66.3 % (42-75); PLATELET COUNT 229 X10'3 (140-440); RED BLOOD COUNT 3.78 X10'6 (4.20-5.60); RED CELL DISTRIBUTION WIDTH 13.9 % (11.5-14.5)
--- NOTE | 2020-01-15 15:30 | NUR ---
Resting with even and unlabored respirations.
[2020-01-15 15:46] LABS: ALANINE AMINOTRANSFERASE 18 U/L (12-78); ALBUMIN 3.3 G/DL (3.4-5.0); ALBUMIN/GLOBULIN RATIO 1.1 (1.1-1.5); ALKALINE PHOSPHATASE 89 IU/L (46-116); ANION GAP 9 (8-16); ASPARTATE AMINO TRANSFERASE 13 U/L (10-37); BILIRUBIN,TOTAL 0.5 MG/DL (0.1-1.0); BLOOD UREA NITROGEN 13 MG/DL (7-18); BUN/CREATININE RATIO 13.4 (6.6-38.0); CALCIUM 8.6 MG/DL (8.5-10.1); CHLORIDE 110 MMOL/L (99-107); CREATININE 0.97 MG/DL (0.40-0.90); GLUCOSE 103 MG/DL (70-104); POTASSIUM 3.2 MMOL/L (3.5-5.1); SODIUM 146 MMOL/L (135-145); TOTAL CARBON DIOXIDE 27.2 MMOL/L (24-32); TOTAL PROTEIN 6.3 G/DL (6.4-8.2); eGFR 58 ML/MIN
[2020-01-15] MEDS ORDERED: potassium Cl 20 mEq SR tablet PO STA (15:49)
[2020-01-15 15:52] LABS: ETHANOL < 0.010 GM/DL (0.0-0.010)
--- NOTE | 2020-01-15 16:29 | NUR ---
No change in condition, resting at this time. Will give the PO potassium dose when the patient awakens.
--- NOTE | 2020-01-15 16:49 | NUR ---
SPOKE WITH PATIENTS BROTHER KAT, WHO PATIENT LIVES WITH. KAT EXPLAINED THAT PATIENT HAS BEEN ON MULTIPLE MENTAL HEALTH HOLDS BETWEEN [facility], [place], [facility], AND FACILITY IN [place]. HE ALSO EXPLAINED THAT PATIENT IS DIAGNOSED WITH DEMENTIA, PTSD, SCHIZOPHRENIA. JENIFER DIAZ- NURSE AID AT CT. [phone] KAT HAS ALSO BEEN IN CONTACT WITH APS SPEAKING WITH CHING HICKS FOR PATIENTS PLACEMENT, HE MENTIONED A FACILITY IN [place] THAT FABIOLA WAS LOOKING INTO FOR PATIENT
--- NOTE | 2020-01-15 16:56 | NUR ---
Phones [facility]PS because the patient's Brother, Kunal reported he has been dealing with a credit resolution representative Sarah Patino. This nurse reached the after hours answering service because the APS office is closed until Saturday due to today being a holiday. She reports she will have the on-call credit resolution representative phone the ED when he is available.
--- NOTE | 2020-01-15 18:45 | NUR ---
Patient is awake and cooperative. She consumes her dinner and PO KCL replacement.
[2020-01-15 18:47] LABS: URINE HCG NEGATIVE (NEG)
[2020-01-15 18:58] LABS: URINE AMPHETAMINE SCREEN NEGATIVE (Neg); URINE BARBITUATE SCREEN NEGATIVE (Neg); URINE BENZODIAZEPINES SCREEN NEGATIVE (Neg); URINE CANNABINOID SCREEN NEGATIVE (Neg); URINE COCAINE SCREEN NEGATIVE (Neg); URINE METHADONE SCREEN NEGATIVE (Neg); URINE OPIATE SCREEN NEGATIVE (Neg); URINE PHENCYCLIDINE SCREEN NEGATIVE (Neg)
--- NOTE | 2020-01-15 19:02 | NUR ---
This patient was given a quick cath to obtain a urine sample. This was done by JEROME Mcduffie. The patient then ate her dinner. Patient took PO KCL. She then returned to sleep after exhibiting mild confusion.
[2020-01-15 20:26] LABS: CLARITY,URINE SLIGHTLY CLOUDY (Clear); COLOR,URINE YELLOW (Yellow); GLUCOSE, URINE NEGATIVE (Neg); KETONES,URINE TRACE mg/dl (Neg); LEUKOCYTE ESTERASE ,URINE SMALL (Neg); NITRITES, URINE NEGATIVE (Neg); OCCULT BLOOD,URINE NEGATIVE (Neg); PROTEIN,URINE NEGATIVE (Neg); UROBILINOGEN,URINE 0.2 E.U/dL (0.2-1.0)
--- NOTE | 2020-01-15 20:30 | NUR ---
Patient sleeps quietly, low fowlers position in bed. In direct view from the nursing station.
[2020-01-15 20:32] LABS: UA COLLECTION TYPE STRAIGHT CATH
[2020-01-15 20:36] LABS: BACTERIA,URINE 4+ /HPF (Neg); MUCUS STRANDS NONE SEEN /LPF (Neg); RBC,URINE 0-2 /HPF (0-2); SQUAMOUS EPITHELIAL CELL,UR FEW /LPF (FEW); TRANSITIONAL EPI CELLS,URINE FEW /HPF
--- NOTE | 2020-01-15 21:15 | NUR ---
Patient continues to sleep well. She has self repositioned. No signs of distress.
--- NOTE | 2020-01-15 22:30 | NUR ---
Patient is in direct view from the nursing station. She sleeps quietly.
--- NOTE | 2020-01-16 02:08 | NUR ---
Patient sleeping in supine position. No distress. In view from nursing station.
--- NOTE | 2020-01-16 03:42 | NUR ---
Patient has self repositioned onto her left side. She is sleeping quietly.
--- NOTE | 2020-01-16 04:13 | NUR ---
Patient sleeping quietly, she self repositions. No distress.
--- NOTE | 2020-01-16 06:03 | NUR ---
Patient sleeping in low fowlers positions. No distress. In view from nursing station.
--- NOTE | 2020-01-16 07:15 | NUR ---
PT RESTING ON BACK RR EQUAL AND UNLABORED
--- NOTE | 2020-01-16 07:55 | NUR ---
PT CONTINUES RESTING ON BACK WITH EYES CLOSED
--- NOTE | 2020-01-16 08:34 | NUR ---
NETWORK SECURITY CONSULTANT FROM [facility]PS RETURNING CALL FROM NURSE LAST NIGHT. HE STATES HE WILL REACH OUT TO CHING SHEARER THE NETWORK SECURITY CONSULTANT ON THE PTS CASE ON SATURDAY AND ASK THE TO CALL US WITH AN UPDATE. SHE IS NOT AVALIBLE UNTIL SATURDAY.
--- NOTE | 2020-01-16 09:00 | NUR ---
PACKET FAXED TO [facility]
--- NOTE | 2020-01-16 11:21 | NUR ---
PT RESTING IN BED. PT OCC YELLS OUT. UPON INQUIRING IF SHE IS OK PT STATES "DID I YELL OUT" SHE STATES SHE IS DREAMING OF HER PARENTS BEING IN TROUBLE AND ITS ALL HER FAULT. PT IS ABLE TO SELF REORIENT AND STATES SHE IS FINE AND KNOWS ITS JUST AT DREAM
--- NOTE | 2020-01-16 11:34 | NUR ---
PT UP OUT OF BED ASSIST TO BR WITH TECH
--- NOTE | 2020-01-16 13:42 | NUR ---
PT ATE ALL LUNCH. SHE AMBULATED TO BR. PROVIDED WARM BLANKET NOW RESTING IN BED WITH EYES CLOSED
--- NOTE | 2020-01-16 15:33 | NUR ---
[facility] WORKER HERE TO REVIEW PTS CHART
--- NOTE | 2020-01-16 16:07 | NUR ---
wilmer from [facility] at bedside
--- NOTE | 2020-01-16 18:30 | NUR ---
Patient appears to be resting comfortably in bed. Patient occasionally will wake up and make statements about her mom and dad being in heaven but patient is calm and then falls immediately back to sleep.
--- NOTE | 2020-01-16 19:37 | NUR ---
Patient continues to have episodes of waking from her sleep and shouting out but then is able to return to sleep almost immediately. No s/s of distress noted
--- NOTE | 2020-01-16 20:30 | NUR ---
Patient appears to be resting comfortably. No s/s of distress noted
--- NOTE | 2020-01-16 22:22 | NUR ---
Patient is currently lying in bed and appears to be resting comfortably. No apparent s/s of distress noted
--- NOTE | 2020-01-16 23:03 | NUR ---
Patient appears to be resting comfortably. No apparent s/s of distress noted
--- NOTE | 2020-01-16 23:32 | NUR ---
Relieving primary RN, Nadine, for break. Pt lying on her back covering to her chest. RR 14 and unlabored. Just had brief episode of screaming and told the Sitter, "i did something bed". Pt calmed by Juana Hein, and quickly appeared to fall back asleep. Sitter and RN within view of Pt AAT.
--- NOTE | 2020-01-17 00:34 | NUR ---
Patient appears to be resting comfortably. No apparent s/s of distress noted
--- NOTE | 2020-01-17 01:47 | NUR ---
Patient appears to be resting comfortably. No apparent s/s of distress noted
--- NOTE | 2020-01-17 02:11 | NUR ---
Patient was overheard growling out loud and standing up to the side of her bed. When asked what was wrong pt stated "I'm a bad person" and "I did bad things". When asked what she means she states "I just want my daddy and momma to be okay". Patient layed back in bed for a minute and covered up with a blanket and states "I'm hungry". When offered a snack patient just got back into bed and became silent. A few minutes later patient again was up at the side of her bed continually repeating "I just want momma and daddy to be ok".
--- NOTE | 2020-01-17 03:00 | NUR ---
Patient has continued to be restless and continuing to jump up and down out of bed. Patient appears agitated and when asked what's wrong, she doesn't answer. Patient states she wishes she could sleep like everyone else. Spoke with MD about how patient was given one time doses of Zyprexa and Ativan and that it was reported to help with her agitation and restlessness. MD ordered medication for patient to start tonight.
[2020-01-17] MEDS ORDERED: olanzapine 10mg tablet PO SCH ×2 (03:02→08:00)
[2020-01-17] MEDS: olanzapine 10mg tablet PO SCH ×2 (03:05→11:04)
[2020-01-17] MEDS: LORazepam 0.5 MG tablet PO PRN ×2 (03:10→11:04)
--- NOTE | 2020-01-17 03:54 | NUR ---
Patient appears to be resting more comfortably in bed at this time. No apparent s/s of distress noted
--- NOTE | 2020-01-17 05:02 | NUR ---
Patient appears to be resting comfortably. No apparent s/s of distress noted
--- NOTE | 2020-01-17 05:43 | NUR ---
Patient appears to be resting comfortably. No apparent s/s of distress noted
--- NOTE | 2020-01-17 09:53 | NUR ---
Patient appears to be resting comfortably. No apparent s/s of distress noted
--- NOTE | 2020-01-17 11:00 | NUR ---
Patient appears to be resting comfortably. No apparent s/s of distress noted
[2020-01-17] MEDS ORDERED: SULF1TAB49 PO (11:54)
--- NOTE | 2020-01-17 12:00 | NUR ---
Patient appears to be resting comfortably. No apparent s/s of distress noted
--- NOTE | 2020-01-17 13:00 | NUR ---
pt woke up went to the bathroom. pt was incontient
--- NOTE | 2020-01-17 15:43 | NUR ---
NOTIFIED BY RN THAT PATIENT WAS BROUGHT IN A 5150, BUT WITH HISTORY OF DEMENTIA, IS UNABLE TO BE PLACED IN A BEHAVIORAL HEALTH FACILITY. SHE LIVES WITH HER BROTHER/DECISION MAKER, KAT TEJEDA [phone]. SOCIAL SERVICE CONSULT IS IN PLACE. S.S. HERE TOMORROW. CONSULT REGARDING MEDICAL ASSISTANT SUPERVISOR PLACEMENT.
[2020-01-17] MEDS: sulfamethoxazole/trimethoprim DS (800/160mg) tablet PO SCH (20:12)
--- NOTE | 2020-01-17 20:40 | NUR ---
Pt resting in bed, has eaten approx 50 % of dinner. Pt denies any complaints and was given an extra blanket.
--- NOTE | 2020-01-17 22:15 | NUR ---
Pt moved from main ER to overflow bed 24. Pt cooperative and appropriate but moving slowly. Pt given warm blankets after getting into bed.
--- NOTE | 2020-01-18 00:20 | NUR ---
Pt sleeping quietly for the most part, occasionally she makes a growling sound while sleeping.
[2020-01-18] MEDS: LORazepam 0.5 MG tablet PO PRN (00:42)
--- NOTE | 2020-01-18 00:42 | NUR ---
pt woke up yelling and climbed out of bed. Pt was incontinent of foul smelling urine. Pt and bed cleaned, pt returned to bed and given warm blankets and 0.5 mg ativan.
[2020-01-18 05:27] VITALS: BP 96/56
--- NOTE | 2020-01-18 06:56 | NUR ---
Patient sleeping on right side. No distress observed. Dr Looney came to evaluate patient. RN advised Doctor of 3.2 K+. He stated he would take a look at that. RN did receive verbal order to give Colace 100 mg BID. Continue to monitor.
[2020-01-18] MEDS ORDERED: docusate sod 100mg capsule PO SCH (08:00)
[2020-01-18] MEDS: olanzapine 10mg tablet PO SCH (08:07)
[2020-01-18] MEDS: sulfamethoxazole/trimethoprim DS (800/160mg) tablet PO SCH (08:07)
--- NOTE | 2020-01-18 08:28 | NUR ---
Patient is up and standing at bedside. Patient then sat down and eating breakfast and appeared happy as patient said Ohhh and smiled when told her breakfast was waiting for her. Patient was grunting just before getting up. Continue to monitor.
--- NOTE | 2020-01-18 09:51 | NUR ---
Susu, social sciences lecturer speaking to brother and advising him he needs to sweet pickle maker his sister.
--- NOTE | 2020-01-18 10:22 | NUR ---
Patient ambulatory to , steady gait. Patient's diaper was soiled with urine and small stain of stool. [employer] Jessica cleaned patient and gave her a new diaper. [employer] placed a shower cap on patient to wash her hair. Continue to monitor.
--- NOTE | 2020-01-18 11:50 | NUR ---
Patient sleeping supine. No distress observed. Continue to monitor.
--- NOTE | 2020-01-18 12:55 | NUR ---
Patient eating lunch. No distress observed. Continue to monitor.
--- NOTE | 2020-01-18 13:49 | NUR ---
Patient reclining in bed and awake. Occasional grunting. Continue to monitor.
[2020-01-18] MEDS ORDERED: lactobacillus rhamnosus 10,000 MMU CELLS/CAPSULE PO SCH (20:00)
== END 2020-01-18 15:10 | disposition home or self-care (01) ==
LOC: ER 12:12
DX: F79 Unspecified intellectual disabilities (principal); N39.0 Urinary tract infection, site not specified; F03.90 Unspecified dementia, unspecified severity, without behavioral disturbance, psychotic disturbance, mood disturbance, and anxiety; F31.9 Bipolar disorder, unspecified; Z87.440 Personal history of urinary (tract) infections; Z90.710 Acquired absence of both cervix and uterus; Z79.2 Long term (current) use of antibiotics; Z79.899 Other long term (current) drug therapy
CPT/HCPCS: 36415; 80053; 80305; 80320; 81001; 81025; 85025; 96372; 99285; J3490

== ENCOUNTER 2020-03-28 16:42 | Emergency (ER) | payer MEDICARE, MEDICAID ==
[~2020-03-28] VITALS: Ht 172.7 cm; Wt 59.1 kg
--- NOTE | 2020-03-28 16:59 | NUR ---
5150 WRITTEN BY Rain CROWE LCSW AT THE [place] AT 202003/28/20
[2020-03-28 19:03] LABS: BASOPHILS % (AUTO) 0.6 % (0-1); EOSINOPHILS # (AUTO) 0.1 X10'3 (0-0.9); EOSINOPHILS % (AUTO) 1.4 % (0-6); HEMOGLOBIN 11.3 g/dl (12.0-16.0); LYMPHOCYTES % (AUTO) 37.6 % (21-51); MEAN CORPUSCULAR HEMOGLOBIN 31.6 PG (27.0-31.0); MEAN CORPUSCULAR HGB CONC 33.3 g/dL (33.0-36.5); MEAN CORPUSCULAR VOLUME 94.9 FL (78-98); MEAN PLATELET VOLUME 6.5 FL (7.4-10.4); MONOCYTES # (AUTO) 0.4 X10'3 (0-0.9); MONOCYTES % (AUTO) 7.9 % (2-12); NEUTROPHILS # (AUTO) 2.8 X10'3 (1.8-7.7); NEUTROPHILS % (AUTO) 52.5 % (42-75); PLATELET COUNT 237 X10'3 (140-440); RED BLOOD COUNT 3.58 X10'6 (4.20-5.60); RED CELL DISTRIBUTION WIDTH 14.2 % (11.5-14.5); WHITE BLOOD COUNT 5.4 X10'3 (4.5-11.0)
[2020-03-28 19:16] LABS: ALANINE AMINOTRANSFERASE 17 U/L (12-78); ALBUMIN/GLOBULIN RATIO 0.9 (1.1-1.5); ALKALINE PHOSPHATASE 137 IU/L (46-116); ANION GAP 7 (8-16); ASPARTATE AMINO TRANSFERASE 14 U/L (10-37); BILIRUBIN,TOTAL 0.3 MG/DL (0.1-1.0); BLOOD UREA NITROGEN 20 MG/DL (7-18); BUN/CREATININE RATIO 27.4 (6.6-38.0); CALCIUM 8.5 MG/DL (8.5-10.1); CHLORIDE 109 MMOL/L (99-107); CREATININE 0.73 MG/DL (0.40-0.90); GLUCOSE 85 MG/DL (70-104); POTASSIUM 3.7 MMOL/L (3.5-5.1); SODIUM 142 MMOL/L (135-145); TOTAL CARBON DIOXIDE 26.4 MMOL/L (24-32); TOTAL PROTEIN 6.2 G/DL (6.4-8.2); eGFR 80 ML/MIN
[2020-03-28 19:24] LABS: ETHANOL < 0.010 GM/DL (0.0-0.010)
--- NOTE | 2020-03-28 19:28 | NUR ---
PATIENT UNABLE TO VOID. PROVIDED PITCHER OF WATER
--- NOTE | 2020-03-28 19:31 | NUR ---
RING LOCKED UP IN SAFE [id number] ID # TAG # [id number]
--- NOTE | 2020-03-28 21:15 | NUR ---
PATIENT ASKED TO GET UP AND SIT ON BSC, PATIENT GOT VERY ANGRY AND STATED THAT "I DONT WANT TO BE LOCKED UP" PATIENT WAS ASSISTED BACK TO KIANNA AND PATIENT ESCORTED TO ER OVERFLOW BY ICE SCULPTOR PATTY
[2020-03-28 23:05] LABS: CLARITY,URINE CLOUDY (Clear); COLOR,URINE YELLOW (Yellow); GLUCOSE, URINE NEGATIVE (Neg); KETONES,URINE TRACE mg/dl (Neg); LEUKOCYTE ESTERASE ,URINE SMALL (Neg); NITRITES, URINE NEGATIVE (Neg); OCCULT BLOOD,URINE TRACE-INTACT (Neg); PROTEIN,URINE NEGATIVE (Neg); UROBILINOGEN,URINE 0.2 E.U/dL (0.2-1.0)
[2020-03-28 23:14] LABS: UA COLLECTION TYPE CLN CATCH MIDSTREAM
[2020-03-28 23:15] LABS: BACTERIA,URINE 4+ /HPF (Neg); RBC,URINE 0-2 /HPF (0-2)
[2020-03-28 23:16] LABS: MUCUS STRANDS FEW /LPF (Neg); SQUAMOUS EPITHELIAL CELL,UR MANY /LPF (FEW)
[2020-03-28 23:18] LABS: URINE AMPHETAMINE SCREEN NEGATIVE (Neg); URINE BARBITUATE SCREEN NEGATIVE (Neg); URINE BENZODIAZEPINES SCREEN NEGATIVE (Neg); URINE CANNABINOID SCREEN NEGATIVE (Neg); URINE COCAINE SCREEN NEGATIVE (Neg); URINE METHADONE SCREEN NEGATIVE (Neg); URINE OPIATE SCREEN NEGATIVE (Neg); URINE PHENCYCLIDINE SCREEN NEGATIVE (Neg)
[2020-03-28] MEDS ORDERED: cephalexin 500mg capsule PO ONE (23:40)
--- NOTE | 2020-03-29 05:01 | NUR ---
PACKET SENT TO [facility]
[2020-03-29 05:59] VITALS: BP 94/62
--- NOTE | 2020-03-29 07:01 | NUR ---
pt standing next to her bed ,with steady feet ,no distress noted ,will cont to monitor.
--- NOTE | 2020-03-29 07:59 | NUR ---
perineal care given to the pt ,pt has new diaper on ,with help of angelito hoffmann.will cont to monitor .
[2020-03-29] MEDS ORDERED: cephalexin 250mg capsule PO SCH (08:00)
--- NOTE | 2020-03-29 08:09 | NUR ---
pt sitting at the bedside eating her breakfast.
--- NOTE | 2020-03-29 09:12 | NUR ---
sent a page to social service for d/c planning process as per told by [facility].
--- NOTE | 2020-03-29 09:31 | NUR ---
pty standing next to her bed .will cont to monitor.
--- NOTE | 2020-03-29 12:45 | NUR ---
called pt brother miguelina if he is available to coal picker pt as per mental health eval pt is going home ,as per miguelina he will be coming around 1330 .
--- NOTE | 2020-03-29 15:17 | NUR ---
CALLED KAT PT BROTHER TWICE FOR D/C TRANSPORTATION .LFT MSG PT BROTHER IS NOT ANSWERING THE PT.
--- NOTE | 2020-03-29 16:10 | NUR ---
PAGED CASE MANAGEMENT FOR D/C TRANSPORTATION.
--- NOTE | 2020-03-29 16:23 | NUR ---
LFT MSG FOR [facility] CASE MANAGEMENT .
--- NOTE | 2020-03-29 16:33 | NUR ---
LFT MESSAGE FOR KAT AT [phone] FOR D/C TRANSPORTATION.
--- NOTE | 2020-03-29 16:38 | NUR ---
CALLED KASANDRA CHARGE NURSE AND INFORMED THAT CASE MGT PAGED AND LFT MSG FOR [facility] BUT NOT RECIVED CALL FROM THEM ,MADE SEVERAL ATTEMPT TO CONTACT KAT PT BROTHER AND HE IS NOT RESPONSING BACK. PER KASANDRA KEEP TRYING ITS NOT OKAY TO D/C PT IN AMBULANCE IF NO ONE IS PRESENT AT HOME TO CARE FOR HER PT HAS DEMENTIA.
--- NOTE | 2020-03-29 16:43 | NUR ---
PAGED CASE MGT FOR TRANSPORTATION.
--- NOTE | 2020-03-29 17:02 | NUR ---
PT BROTHER IS HERE TO WELFARE MANAGER PT D/C PAPERPAERWORK DISCUSSED WITH THE BROTHER ,INSTRUCTED TO MAKE F/U APPT WITH PCP RETURN TO ER FOR ANY NEW OR WORSENING CONDITION,BROTHER VERBALIZED UNDERSATNDING DENIES ANY CONCERN OR QUES.
[2020-03-29] MEDS ORDERED: CEPH250T PO (17:07)
[2020-03-29] MEDS ORDERED: lactobacillus rhamnosus 10,000 MMU CELLS/CAPSULE PO SCH (20:00)
== END 2020-03-29 17:10 | disposition home or self-care (01) ==
LOC: ER 16:43
DX: F79 Unspecified intellectual disabilities (principal); F03.90 Unspecified dementia, unspecified severity, without behavioral disturbance, psychotic disturbance, mood disturbance, and anxiety; F23 Brief psychotic disorder; N39.0 Urinary tract infection, site not specified; F31.9 Bipolar disorder, unspecified; Z91.19 Patient's noncompliance with other medical treatment and regimen; Z87.440 Personal history of urinary (tract) infections; Z90.710 Acquired absence of both cervix and uterus; Z79.2 Long term (current) use of antibiotics; Z79.899 Other long term (current) drug therapy
CPT/HCPCS: 36415; 80053; 80305; 80320; 81001; 84443; 85025; 99285

== ENCOUNTER 2020-04-20 15:32 | Inpatient (IN) | payer MEDICARE, MEDICAID ==
[~2020-04-20] VITALS: Ht 172.7 cm; Wt 51.1 kg
[~2020-04-20 15:32] MED LIST changes: +CEPH250T PO
--- NOTE | 2020-04-20 17:00 | NUR ---
pt is supine in bed, was growling, staff went over and started talking to pt, she is using her words now
[2020-04-20] MEDS ORDERED: CYAN500T71 PO (17:18)
[2020-04-20] MEDS ORDERED: MIRT-116 PO (17:18)
--- NOTE | 2020-04-20 19:00 | NUR ---
Pt growling. Labs drawn and covid swab collected with pt's cooperation.
[2020-04-20 19:35] LABS: ETHANOL < 0.010 GM/DL (0.0-0.010)
--- NOTE | 2020-04-20 19:52 | NUR ---
Pt resting quietly, respirations normal, no s/s of distress.
[2020-04-20] MEDS: QUEtiapine 25mg tablet PO SCH (20:31)
[2020-04-20] MEDS: mirtazapine 15mg tablet PO SCH (20:31)
[2020-04-20] MEDS: OLANZapine 5mg rapidly disint. tablet PO SCH (20:31)
--- NOTE | 2020-04-20 22:53 | NUR ---
Pt resting quietly, respirations normal, no s/s of distress.
--- NOTE | 2020-04-21 | NUR ---
Pt resting quietly, respirations normal, no s/s of distress.
--- NOTE | 2020-04-21 01:00 | NUR ---
Pt resting quietly, respirations normal, no s/s of distress.
--- NOTE | 2020-04-21 02:00 | NUR ---
Pt resting quietly, respirations normal, no s/s of distress.
--- NOTE | 2020-04-21 03:00 | NUR ---
Pt resting quietly, respirations normal, no s/s of distress.
--- NOTE | 2020-04-21 04:40 | NUR ---
Pt resting quietly, respirations normal, no s/s of distress.
[2020-04-21] MEDS: cyanocobalamin 500mcg tablet PO SCH (08:14)
[2020-04-21] MEDS: QUEtiapine 25mg tablet PO SCH ×2 (08:14→21:17)
[2020-04-21 10:07] LABS: CLARITY,URINE CLOUDY (Clear); COLOR,URINE YELLOW (Yellow); GLUCOSE, URINE NEGATIVE (Neg); KETONES,URINE NEGATIVE (Neg); LEUKOCYTE ESTERASE ,URINE SMALL (Neg); NITRITES, URINE NEGATIVE (Neg); OCCULT BLOOD,URINE NEGATIVE (Neg); PH,URINE 6.5 (4.8-8.0); PROTEIN,URINE NEGATIVE (Neg); UROBILINOGEN,URINE 0.2 E.U/dL (0.2-1.0)
[2020-04-21 10:09] LABS: UA COLLECTION TYPE OTHER
[2020-04-21 10:15] LABS: SQUAMOUS EPITHELIAL CELL,UR MANY /LPF (FEW)
[2020-04-21 10:17] LABS: BACTERIA,URINE 3+ /HPF (Neg)
[2020-04-21 10:18] LABS: RBC,URINE 0-2 /HPF (0-2)
[2020-04-21 10:21] LABS: URINE AMPHETAMINE SCREEN NEGATIVE (Neg); URINE BARBITUATE SCREEN NEGATIVE (Neg); URINE BENZODIAZEPINES SCREEN NEGATIVE (Neg); URINE CANNABINOID SCREEN NEGATIVE (Neg); URINE COCAINE SCREEN NEGATIVE (Neg); URINE METHADONE SCREEN NEGATIVE (Neg); URINE OPIATE SCREEN NEGATIVE (Neg); URINE PHENCYCLIDINE SCREEN NEGATIVE (Neg)
--- NOTE | 2020-04-21 16:50 | NUR ---
faxed ref to [facility], faxed to [phone], contacted JEROME Dickerson @ [phone], she stated that they will call for info after 1900 when chart will be reviewed, they do not take pt with dementia, she was ref by [place] [facility] (in paper chart) sent that, as well as our documentation.
[2020-04-21] MEDS: mirtazapine 15mg tablet PO SCH (21:17)
[2020-04-21] MEDS: OLANZapine 5mg rapidly disint. tablet PO SCH (21:18)
--- NOTE | 2020-04-21 23:22 | NUR ---
Patient is up to the bathroom to void. Her gait is normal. She returned to bed to sleep.
--- NOTE | 2020-04-22 01:02 | NUR ---
Patient sleeps quietly, no distress. In view from nursing station.
--- NOTE | 2020-04-22 03:00 | NUR ---
Patient in no distress, sleeping quietly on her left side. In view from the nurses station.
--- NOTE | 2020-04-22 04:06 | NUR ---
Patient sleeps quietly, in view from the nurses station.
--- NOTE | 2020-04-22 05:14 | NUR ---
Patient is sleeping quietly, in direct view from the nursing station.
--- NOTE | 2020-04-22 06:51 | NUR ---
Patient resting quietly, no s/s of distress, in direct view of nursing station.
[2020-04-22] MEDS: QUEtiapine 25mg tablet PO SCH ×2 (08:11→20:14)
[2020-04-22] MEDS: cyanocobalamin 500mcg tablet PO SCH (08:11)
--- NOTE | 2020-04-22 08:43 | NUR ---
patient is awake but sleepy. She cooperated with medication administration. Patient is occasionally heard making growling sounds and answers minimal questions.
--- NOTE | 2020-04-22 09:29 | NUR ---
Assumed care, pt just ambulated to the bathroom, calm, no needs at this time
--- NOTE | 2020-04-22 10:15 | NUR ---
Spoke to JEROME Soni at [facility], she states that [facility] told them patient had Dementia and was no longer on a hold, and they rec placement to medical floor, Spoke to Christiane Moran, she states they are not able to take any patients through ER or to medical floor, due to census
--- NOTE | 2020-04-22 10:52 | NUR ---
Susu, Bagging Machine Operator is in seeing patient, pt calm and talking to her
--- NOTE | 2020-04-22 11:28 | NUR ---
pt was standing at the head of her bed, asked if she wants something, she was wondering where lunch is, I told her in about an hour, she refused snacks, calm, no needs at this time
--- NOTE | 2020-04-22 12:30 | NUR ---
pt supine in bed, sleeping, no needs at this time
--- NOTE | 2020-04-22 13:30 | NUR ---
pt supine in bed, sleeping, no needs at this time
--- NOTE | 2020-04-22 14:40 | NUR ---
called pt brother Kunal, left message to call us back for DC of sister
--- NOTE | 2020-04-22 15:51 | NUR ---
pt standing at bs eating yogart no needs at this time
--- NOTE | 2020-04-22 16:06 | NUR ---
pt given jello and string cheese
--- NOTE | 2020-04-22 16:40 | NUR ---
pt is up at desk over and over, with request after request, back to bed at this time
--- NOTE | 2020-04-22 17:30 | NUR ---
pt is supine in bed, no needs at this time
--- NOTE | 2020-04-22 17:42 | NUR ---
called pt brother to come and diamond picker pt, left message on voice mail
--- NOTE | 2020-04-22 19:00 | NUR ---
Pt is sitting on the side of the bed having dinner
--- NOTE | 2020-04-22 19:22 | NUR ---
called pt brother no answer
[2020-04-22] MEDS: OLANZapine 5mg rapidly disint. tablet PO SCH (20:14)
[2020-04-22] MEDS: mirtazapine 15mg tablet PO SCH (20:14)
--- NOTE | 2020-04-22 20:15 | NUR ---
Pt is resting in the bed with eyes closed.
--- NOTE | 2020-04-22 21:45 | NUR ---
Pt is resting in the bed with eyes closed.
--- NOTE | 2020-04-22 22:30 | NUR ---
pt is resting in her bed with eyes closed.
--- NOTE | 2020-04-22 23:45 | NUR ---
pt is resting in her bed with eyes closed.
--- NOTE | 2020-04-23 00:55 | NUR ---
pt is resting in her bed with eyes closed.
--- NOTE | 2020-04-23 02:00 | NUR ---
pt is resting in her bed with eyes closed
--- NOTE | 2020-04-23 03:00 | NUR ---
pt is resting in her bed with eyes closed
--- NOTE | 2020-04-23 04:00 | NUR ---
pt is resting in her bed with eyes closed
--- NOTE | 2020-04-23 05:00 | NUR ---
pt is resting in her bed with eyes closed
--- NOTE | 2020-04-23 06:30 | NUR ---
Assumed patient care. She is sleeping on her left side in bed. In view from nurses station.
--- NOTE | 2020-04-23 07:53 | NUR ---
Patient refuses her glucose check. ER MD advised patient is non compliant.
[2020-04-23] MEDS: QUEtiapine 25mg tablet PO SCH ×2 (08:31→20:04)
[2020-04-23] MEDS: cyanocobalamin 500mcg tablet PO SCH (08:31)
--- NOTE | 2020-04-23 08:33 | NUR ---
Patient is finishing breakfast. She remains disorganized. Patient is cooperative, her appearance is disheveled. Patient is in direct view from the nursing station.
--- NOTE | 2020-04-23 09:35 | NUR ---
[facility] office called to remind us that this patient has been released from all mental health holds.
[2020-04-23] MEDS ORDERED: cephalexin 250mg capsule PO ONE (10:35)
[2020-04-23] MEDS ORDERED: magnesium 4gm in 100ml NS 100 ML IV PRN (12:15)
[2020-04-23] MEDS ORDERED: ondansetron/PF 4mg/2ml inj IV PRN (12:15)
[2020-04-23] MEDS ORDERED: magnesium 2GM in 50ml NS 50 ML IV PRN (12:15)
[2020-04-23] MEDS ORDERED: potassium Cl 20 mEq SR tablet PO PRN ×2 (12:15)
[2020-04-23] MEDS ORDERED: mag hydrox/Alum hydrox/simeth 30ml oral suspension PO PRN (12:15)
[2020-04-23] MEDS ORDERED: potassium Cl 40MEQ/1/2NS 520ml 520 ML IV PRN ×2 (12:15)
[2020-04-23 12:58] LABS: BASOPHILS % (AUTO) 0.8 % (0-1); EOSINOPHILS % (AUTO) 1.3 % (0-6); HEMATOCRIT 39.1 % (35.0-45.0); HEMOGLOBIN 13.2 g/dl (12.0-16.0); LYMPHOCYTES # (AUTO) 1.4 X10'3 (1.1-4.8); LYMPHOCYTES % (AUTO) 43.3 % (21-51); MEAN CORPUSCULAR HEMOGLOBIN 31.7 PG (27.0-31.0); MEAN CORPUSCULAR HGB CONC 33.7 g/dL (33.0-36.5); MEAN CORPUSCULAR VOLUME 94.1 FL (78-98); MEAN PLATELET VOLUME 6.6 FL (7.4-10.4); MONOCYTES # (AUTO) 0.2 X10'3 (0-0.9); MONOCYTES % (AUTO) 5.1 % (2-12); NEUTROPHILS # (AUTO) 1.6 X10'3 (1.8-7.7); NEUTROPHILS % (AUTO) 49.5 % (42-75); PLATELET COUNT 219 X10'3 (140-440); RED BLOOD COUNT 4.16 X10'6 (4.20-5.60); RED CELL DISTRIBUTION WIDTH 14.3 % (11.5-14.5); WHITE BLOOD COUNT 3.3 X10'3 (4.5-11.0)
[2020-04-23 13:26] LABS: ALANINE AMINOTRANSFERASE 22 U/L (12-78); ALBUMIN 2.9 G/DL (3.4-5.0); ALBUMIN/GLOBULIN RATIO 0.9 (1.1-1.5); ALKALINE PHOSPHATASE 107 IU/L (46-116); ANION GAP 6 (8-16); ASPARTATE AMINO TRANSFERASE 13 U/L (10-37); BILIRUBIN,TOTAL 0.4 MG/DL (0.1-1.0); BLOOD UREA NITROGEN 14 MG/DL (7-18); BUN/CREATININE RATIO 21.2 (6.6-38.0); CALCIUM 8.7 MG/DL (8.5-10.1); CHLORIDE 107 MMOL/L (99-107); CREATININE 0.66 MG/DL (0.40-0.90); GLUCOSE 79 MG/DL (70-104); POTASSIUM 3.8 MMOL/L (3.5-5.1); SODIUM 142 MMOL/L (135-145); TOTAL CARBON DIOXIDE 29.4 MMOL/L (24-32); TOTAL PROTEIN 6.1 G/DL (6.4-8.2); eGFR 90 ML/MIN
--- NOTE | 2020-04-23 14:08 | NUR ---
Patient was evaluated by Dr. Soto at bedside for probable admission to the hospital.
--- NOTE | 2020-04-23 14:09 | NUR ---
Patient remains disheveled, confussed, she needs prompting for her ADL's.
--- NOTE | 2020-04-23 15:02 | NUR ---
Pt parents here to see pt for her birthday. All belongings brought with them were held by security. Addendum: 04/23/20 at 1508 by [employer] Wrong pt, wrong RN.
--- NOTE | 2020-04-23 15:07 | NUR ---
Pt parents here to visit pt for her birthday. All belongings they brought with them are held at security. Addendum: 04/23/20 at 1509 by [employer] Wrong pt
--- NOTE | 2020-04-23 15:09 | NUR ---
Pt sleeping, NAD, resp unlabored
--- NOTE | 2020-04-23 16:15 | NUR ---
Report received from ED RNEleni
[2020-04-23 16:50] VITALS: BP 103/65
--- NOTE | 2020-04-23 16:55 | NUR ---
Pt arrived via WC to room 356A. Pt up in room stating she didn't want to be here. Pt instructed she was not able to leave until there is a safe place to go. She asked if she would be in this room the whole time and was told, "Yes, as long as it's good for you." Pt then laid down in the bed and covered herself w/ linens. Pt is in green scrubs. Nga RN aware of pt's arrival.
--- NOTE | 2020-04-23 18:00 | NUR ---
Patient in room QUE 356. I have received report from Nga CANO. and had the opportunity to ask questions and assume patient care. NAD noted, RR even and unlabored. No concerns voied. Safety precautions in place, will continue to monitor.
--- NOTE | 2020-04-23 18:50 | NUR ---
Problems reprioritized. Patient report given, questions answered & plan of care reviewed with JEROME Cm.
[2020-04-23 19:00] VITALS: BP 123/72
[2020-04-23] MEDS ORDERED: clotrimazole topical cream 15gm tube TP SCH (20:00)
[2020-04-23] MEDS: K and/or MAG REPLACEMENT MC SCH (20:00)
[2020-04-23] MEDS: ketoconazole 2% cream 15gm TP SCH (20:05)
[2020-04-23] MEDS: OLANZapine 5mg rapidly disint. tablet PO SCH (20:05)
[2020-04-23] MEDS: mirtazapine 15mg tablet PO SCH (21:10)
[2020-04-23 22:00] VITALS: BP 121/55
[2020-04-24 06:05] LABS: BASOPHILS % (AUTO) 0.7 % (0-1); EOSINOPHILS # (AUTO) 0.1 X10'3 (0-0.9); HEMATOCRIT 37.3 % (35.0-45.0); HEMOGLOBIN 12.7 g/dl (12.0-16.0); LYMPHOCYTES # (AUTO) 1.6 X10'3 (1.1-4.8); LYMPHOCYTES % (AUTO) 44.9 % (21-51); MEAN CORPUSCULAR HEMOGLOBIN 31.7 PG (27.0-31.0); MEAN CORPUSCULAR VOLUME 93.3 FL (78-98); MEAN PLATELET VOLUME 6.9 FL (7.4-10.4); MONOCYTES # (AUTO) 0.2 X10'3 (0-0.9); MONOCYTES % (AUTO) 5.5 % (2-12); NEUTROPHILS # (AUTO) 1.7 X10'3 (1.8-7.7); NEUTROPHILS % (AUTO) 46.9 % (42-75); PLATELET COUNT 208 X10'3 (140-440); RED CELL DISTRIBUTION WIDTH 14.1 % (11.5-14.5); WHITE BLOOD COUNT 3.6 X10'3 (4.5-11.0)
--- NOTE | 2020-04-24 06:05 | NUR ---
Patient in room QUE 356. I have received report from JEROME Cm and had the opportunity to ask questions and assume patient care.
[2020-04-24 06:12] LABS: ALANINE AMINOTRANSFERASE 20 U/L (12-78); ALBUMIN 2.7 G/DL (3.4-5.0); ALBUMIN/GLOBULIN RATIO 0.9 (1.1-1.5); ALKALINE PHOSPHATASE 96 IU/L (46-116); ANION GAP 5 (8-16); ASPARTATE AMINO TRANSFERASE 9 U/L (10-37); BILIRUBIN,TOTAL 0.3 MG/DL (0.1-1.0); BLOOD UREA NITROGEN 14 MG/DL (7-18); CALCIUM 8.5 MG/DL (8.5-10.1); CHLORIDE 109 MMOL/L (99-107); CREATININE 0.61 MG/DL (0.40-0.90); GLUCOSE 88 MG/DL (70-104); POTASSIUM 3.6 MMOL/L (3.5-5.1); SODIUM 144 MMOL/L (135-145); TOTAL PROTEIN 5.6 G/DL (6.4-8.2); eGFR > 90 ML/MIN
--- NOTE | 2020-04-24 06:22 | NUR ---
Problems reprioritized. Patient report given, questions answered & plan of care reviewed with Nga RN.
--- NOTE | 2020-04-24 06:45 | NUR ---
Problems reprioritized. Patient report given, questions answered & plan of care reviewed with JEROME Yang.
[2020-04-24 07:00] VITALS: BP 113/64
[2020-04-24] MEDS: K and/or MAG REPLACEMENT MC SCH ×2 (07:15→20:00)
[2020-04-24] MEDS: QUEtiapine 25mg tablet PO SCH (09:40)
[2020-04-24] MEDS: cyanocobalamin 500mcg tablet PO SCH (09:40)
[2020-04-24] MEDS: ketoconazole 2% cream 15gm TP SCH ×2 (09:40→20:37)
[2020-04-24 11:00] VITALS: BP 108/51
[2020-04-24] MEDS ORDERED: NO HOME MEDS (12:20)
--- NOTE | 2020-04-24 15:02 | NUR ---
Low BMI trigger: BMI 18.4 via bed scale this admit. Pt admit DX major depression, 5150, and PTSD per EMR. Pt has normal strength, no edema/wounds, and no prior scaled wt hx. PO 100% dinner last night on regular diet w/ refusal of breakfast this AM. To provide initial assessment on above date. Addendum: 04/24/20 at [address] Amended: Links added.
--- NOTE | 2020-04-24 18:30 | NUR ---
Patient in room QUE 356. I have received report from ZULEMA and had the opportunity to ask questions and assume patient care. ASSUMED CARE OF PT WITH RN STUDENT CATA Paniagua
[2020-04-24 20:00] VITALS: BP_SYST 172; BP_SYST 96; BP_SYST 98; BP_DIAS 110; BP_DIAS 49; BP_DIAS 57
[2020-04-25] VITALS: BP 98/57
--- NOTE | 2020-04-25 04:24 | NUR ---
Student documentation: I have reviewed and agree with all interventions, assessments performed and documented by CATA Vasquez Medication Administration: For this medication-pass time frame, all medication were reviewed, dispensed, administered and documented per hospital policy by CATA Paniagua
--- NOTE | 2020-04-25 06:32 | NUR ---
Problems reprioritized. Patient report given, questions answered & plan of care reviewed with
[2020-04-25 06:43] LABS: BASOPHILS % (AUTO) 0.8 % (0-1); EOSINOPHILS # (AUTO) 0.1 X10'3 (0-0.9); EOSINOPHILS % (AUTO) 2.2 % (0-6); HEMATOCRIT 39.5 % (35.0-45.0); HEMOGLOBIN 13.2 g/dl (12.0-16.0); LYMPHOCYTES # (AUTO) 1.7 X10'3 (1.1-4.8); LYMPHOCYTES % (AUTO) 47.8 % (21-51); MEAN CORPUSCULAR HEMOGLOBIN 31.4 PG (27.0-31.0); MEAN CORPUSCULAR HGB CONC 33.5 g/dL (33.0-36.5); MEAN PLATELET VOLUME 6.8 FL (7.4-10.4); MONOCYTES # (AUTO) 0.2 X10'3 (0-0.9); NEUTROPHILS # (AUTO) 1.5 X10'3 (1.8-7.7); NEUTROPHILS % (AUTO) 43.2 % (42-75); PLATELET COUNT 218 X10'3 (140-440); RED CELL DISTRIBUTION WIDTH 14.1 % (11.5-14.5); WHITE BLOOD COUNT 3.5 X10'3 (4.5-11.0)
[2020-04-25 07:06] VITALS: BP 101/53
[2020-04-25 07:13] LABS: ALBUMIN 2.7 G/DL (3.4-5.0); ANION GAP 5 (8-16); BILIRUBIN,TOTAL 0.4 MG/DL (0.1-1.0); BLOOD UREA NITROGEN 12 MG/DL (7-18); BUN/CREATININE RATIO 18.8 (6.6-38.0); CALCIUM 8.7 MG/DL (8.5-10.1); CHLORIDE 108 MMOL/L (99-107); CREATININE 0.64 MG/DL (0.40-0.90); GLUCOSE 80 MG/DL (70-104); MAGNESIUM 2.1 MG/DL (1.5-2.4); POTASSIUM 3.9 MMOL/L (3.5-5.1); SODIUM 142 MMOL/L (135-145); TOTAL CARBON DIOXIDE 29.1 MMOL/L (24-32); TOTAL PROTEIN 5.8 G/DL (6.4-8.2); eGFR > 90 ML/MIN
[2020-04-25 07:14] LABS: ALANINE AMINOTRANSFERASE 23 U/L (12-78); ALBUMIN/GLOBULIN RATIO 0.9 (1.1-1.5); ALKALINE PHOSPHATASE 99 IU/L (46-116); ASPARTATE AMINO TRANSFERASE 8 U/L (10-37)
--- NOTE | 2020-04-25 07:23 | NUR ---
I have reviewed and agree with all medications administered and interventions performed by [facility] Student(fill in Student's name) Addendum: 04/25/20 at 0724 by Conchita Balbuena RN accidental entry
[2020-04-25] MEDS: K and/or MAG REPLACEMENT MC SCH ×2 (08:00→20:00)
[2020-04-25] MEDS: venlafaxine XR 37.5mg cap (Q24H) PO SCH (10:17)
[2020-04-25] MEDS: ketoconazole 2% cream 15gm TP SCH ×2 (10:18→20:00)
[2020-04-25 11:00] VITALS: BP 117/65
[2020-04-25 18:00] VITALS: BP 101/60
--- NOTE | 2020-04-25 18:30 | NUR ---
Gave report to Jaquelin CANO.
--- NOTE | 2020-04-25 18:32 | NUR ---
Patient in room QUE 356. I have received report from Conchita CANO and had the opportunity to ask questions and assume patient care.
[2020-04-25] MEDS: QUEtiapine 25mg tablet PO SCH (20:03)
[2020-04-25 23:56] VITALS: BP 88/60
[2020-04-26 02:30] VITALS: BP 88/74
[2020-04-26] MEDS ORDERED: QUEtiapine 25mg tablet PO ONE ×2 (03:00→21:00)
--- NOTE | 2020-04-26 06:30 | NUR ---
Patient in room QUE 356. I have received report from JEROME Hammer and had the opportunity to ask questions and assume patient care.
--- NOTE | 2020-04-26 06:30 | NUR ---
Problems reprioritized. Patient report given, questions answered & plan of care reviewed with Elvira CANO.
[2020-04-26 07:00] VITALS: BP 96/46
[2020-04-26 07:38] LABS: BASOPHILS % (AUTO) 1.2 % (0-1); EOSINOPHILS % (AUTO) 1.2 % (0-6); HEMOGLOBIN 12.2 g/dl (12.0-16.0); LYMPHOCYTES # (AUTO) 1.7 X10'3 (1.1-4.8); LYMPHOCYTES % (AUTO) 42.3 % (21-51); MEAN CORPUSCULAR HEMOGLOBIN 31.5 PG (27.0-31.0); MEAN CORPUSCULAR HGB CONC 33.9 g/dL (33.0-36.5); MEAN CORPUSCULAR VOLUME 92.8 FL (78-98); MEAN PLATELET VOLUME 6.6 FL (7.4-10.4); MONOCYTES # (AUTO) 0.2 X10'3 (0-0.9); MONOCYTES % (AUTO) 5.1 % (2-12); NEUTROPHILS % (AUTO) 50.2 % (42-75); PLATELET COUNT 212 X10'3 (140-440); RED BLOOD COUNT 3.87 X10'6 (4.20-5.60); RED CELL DISTRIBUTION WIDTH 13.7 % (11.5-14.5)
[2020-04-26] MEDS: K and/or MAG REPLACEMENT MC SCH ×2 (08:00→20:00)
[2020-04-26 08:31] LABS: ALANINE AMINOTRANSFERASE 36 U/L (12-78); ALBUMIN 2.8 G/DL (3.4-5.0); ALBUMIN/GLOBULIN RATIO 0.9 (1.1-1.5); ALKALINE PHOSPHATASE 96 IU/L (46-116); ANION GAP 8 (8-16); ASPARTATE AMINO TRANSFERASE 18 U/L (10-37); BILIRUBIN,TOTAL 0.3 MG/DL (0.1-1.0); BLOOD UREA NITROGEN 19 MG/DL (7-18); BUN/CREATININE RATIO 28.4 (6.6-38.0); CALCIUM 8.8 MG/DL (8.5-10.1); CHLORIDE 105 MMOL/L (99-107); CREATININE 0.67 MG/DL (0.40-0.90); GLUCOSE 86 MG/DL (70-104); POTASSIUM 4.1 MMOL/L (3.5-5.1); SODIUM 141 MMOL/L (135-145); TOTAL CARBON DIOXIDE 27.6 MMOL/L (24-32); TOTAL PROTEIN 5.8 G/DL (6.4-8.2); eGFR 88 ML/MIN
[2020-04-26] MEDS: QUEtiapine 25mg tablet PO SCH ×2 (08:44→20:20)
[2020-04-26] MEDS: venlafaxine XR 37.5mg cap (Q24H) PO SCH (08:44)
[2020-04-26] MEDS: ketoconazole 2% cream 15gm TP SCH ×2 (08:52→20:20)
[2020-04-26 12:00] VITALS: BP 106/68
--- NOTE | 2020-04-26 18:26 | NUR ---
Problems reprioritized. Patient report given, questions answered & plan of care reviewed with JEROME Hammer.
[2020-04-26 20:00] VITALS: BP 103/54
--- NOTE | 2020-04-26 20:56 | NUR ---
Called MD as patient restless and calling out about "her baby and Sandee" and talking to self. New order to increase Seroquel from 25mg to 50mg on the HS dose. Addendum: 04/26/20 at 2223 by Jaquelin Novak RN The other dogs name is "Ducky".
--- NOTE | 2020-04-26 22:23 | NUR ---
Patient keeps coming out of her room in distress saying she wants her doggies. Apparently the dogs have been cremated and her brother Kunal is supposed to have the ashes. Called brother Kunal [phone] to confirm that in fact he does have the ashes and is looking after them ,which he states is correct. informed patient of this and patient still upset stating "he's lying" . Patient has had an extra seroquel 25mg already this evening. Will continue to monitor.
--- NOTE | 2020-04-27 | NUR ---
Refused BP to be taken
--- NOTE | 2020-04-27 05:31 | NUR ---
Bladder scan states greater than [address] Soto notified, states no need for catheter at this time, encourage to void.
--- NOTE | 2020-04-27 06:48 | NUR ---
Problems reprioritized. Patient report given, questions answered & plan of care reviewed with Christiane CANO.
--- NOTE | 2020-04-27 06:51 | NUR ---
Patient in room QUE 356. I have received report from Jaquelin CANO and had the opportunity to ask questions and assume patient care.
[2020-04-27 07:13] LABS: BASOPHILS % (AUTO) 0.7 % (0-1); EOSINOPHILS # (AUTO) 0.1 X10'3 (0-0.9); EOSINOPHILS % (AUTO) 1.4 % (0-6); HEMATOCRIT 36.6 % (35.0-45.0); HEMOGLOBIN 12.3 g/dl (12.0-16.0); LYMPHOCYTES # (AUTO) 1.7 X10'3 (1.1-4.8); MEAN CORPUSCULAR HEMOGLOBIN 31.6 PG (27.0-31.0); MEAN CORPUSCULAR HGB CONC 33.6 g/dL (33.0-36.5); MONOCYTES # (AUTO) 0.2 X10'3 (0-0.9); MONOCYTES % (AUTO) 5.5 % (2-12); NEUTROPHILS # (AUTO) 1.8 X10'3 (1.8-7.7); NEUTROPHILS % (AUTO) 46.4 % (42-75); PLATELET COUNT 224 X10'3 (140-440); RED CELL DISTRIBUTION WIDTH 14.1 % (11.5-14.5); WHITE BLOOD COUNT 3.8 X10'3 (4.5-11.0)
[2020-04-27 07:39] LABS: ALANINE AMINOTRANSFERASE 28 U/L (12-78); ALBUMIN 2.7 G/DL (3.4-5.0); ALBUMIN/GLOBULIN RATIO 0.9 (1.1-1.5); ALKALINE PHOSPHATASE 93 IU/L (46-116); ANION GAP 7 (8-16); ASPARTATE AMINO TRANSFERASE 12 U/L (10-37); BILIRUBIN,TOTAL 0.3 MG/DL (0.1-1.0); BLOOD UREA NITROGEN 17 MG/DL (7-18); BUN/CREATININE RATIO 29.8 (6.6-38.0); CALCIUM 8.7 MG/DL (8.5-10.1); CHLORIDE 108 MMOL/L (99-107); CREATININE 0.57 MG/DL (0.40-0.90); GLUCOSE 80 MG/DL (70-104); POTASSIUM 3.9 MMOL/L (3.5-5.1); SODIUM 142 MMOL/L (135-145); TOTAL CARBON DIOXIDE 27.4 MMOL/L (24-32); TOTAL PROTEIN 5.6 G/DL (6.4-8.2); eGFR > 90 ML/MIN
[2020-04-27 08:00] VITALS: BP 84/40
[2020-04-27] MEDS: K and/or MAG REPLACEMENT MC SCH ×2 (08:00→20:00)
[2020-04-27 08:30] VITALS: BP 102/62
[2020-04-27] MEDS: QUEtiapine 25mg tablet PO SCH ×2 (08:47→20:22)
[2020-04-27] MEDS: venlafaxine XR 37.5mg cap (Q24H) PO SCH (08:47)
[2020-04-27] MEDS: ketoconazole 2% cream 15gm TP SCH ×2 (08:56→20:23)
--- NOTE | 2020-04-27 09:15 | NUR ---
Dr Hewitt at pt's bedside, update given, vital signs reviewed, MD aware of BPs, no new orders. Will continue to monitor.
[2020-04-27] MEDS ORDERED: QUET25TA34 PO ×2 (09:21)
[2020-04-27] MEDS ORDERED: EFF37.5XRC PO (09:21)
[2020-04-27 12:00] VITALS: BP 96/58
--- NOTE | 2020-04-27 12:20 | NUR ---
This RN as well as osteopathic resident have attempted to reach pt's brother, Kunal to notify of pt's discharge at 1000, 1030, 1100, 1200, at phone number provided with no success, and unable to leave a message. Will continue to attempt to reach. Soc Services aware per osteopathic resident.
--- NOTE | 2020-04-27 14:36 | NUR ---
Have attempted to phone pt's brother Kunal at 1230, 1300, 1330 and 1430 and have gotten a busy signal. Susu, Soc Services and clay products machine operator are aware. Will continue to attempt to reach family member re: pt's discharge.
--- NOTE | 2020-04-27 16:00 | NUR ---
Per news production assistant, phoned pt's brother Kunal and was able to leave a message on an answering device. Received phone call from social work professor and she states she reached an answering device as well and left a message re: pt's discharge and to phone [facility]. Will continue to monitor.
--- NOTE | 2020-04-27 18:40 | NUR ---
Problems reprioritized. Patient report given, questions answered & plan of care reviewed with Christel Johnson RN.
--- NOTE | 2020-04-28 02:01 | NUR ---
Patient has not urinated, bladder scan shows 280, encouraged fluids. Refusing to get up to BSC or bathroom at this time.
[2020-04-28 06:45] LABS: BASOPHILS % (AUTO) 0.8 % (0-1); EOSINOPHILS # (AUTO) 0.1 X10'3 (0-0.9); EOSINOPHILS % (AUTO) 1.4 % (0-6); HEMATOCRIT 38.1 % (35.0-45.0); HEMOGLOBIN 12.7 g/dl (12.0-16.0); LYMPHOCYTES # (AUTO) 1.9 X10'3 (1.1-4.8); LYMPHOCYTES % (AUTO) 50.8 % (21-51); MEAN CORPUSCULAR HEMOGLOBIN 31.3 PG (27.0-31.0); MEAN CORPUSCULAR HGB CONC 33.4 g/dL (33.0-36.5); MEAN CORPUSCULAR VOLUME 93.7 FL (78-98); MEAN PLATELET VOLUME 6.8 FL (7.4-10.4); MONOCYTES # (AUTO) 0.2 X10'3 (0-0.9); MONOCYTES % (AUTO) 4.4 % (2-12); NEUTROPHILS # (AUTO) 1.6 X10'3 (1.8-7.7); NEUTROPHILS % (AUTO) 42.6 % (42-75); PLATELET COUNT 225 X10'3 (140-440); RED BLOOD COUNT 4.06 X10'6 (4.20-5.60); RED CELL DISTRIBUTION WIDTH 13.8 % (11.5-14.5); WHITE BLOOD COUNT 3.7 X10'3 (4.5-11.0)
[2020-04-28 07:00] VITALS: BP 101/63
[2020-04-28 07:11] LABS: ALBUMIN 2.9 G/DL (3.4-5.0); ALBUMIN/GLOBULIN RATIO 0.9 (1.1-1.5); ANION GAP 6 (8-16); ASPARTATE AMINO TRANSFERASE 15 U/L (10-37); BILIRUBIN,TOTAL 0.4 MG/DL (0.1-1.0); BLOOD UREA NITROGEN 15 MG/DL (7-18); BUN/CREATININE RATIO 23.4 (6.6-38.0); CALCIUM 8.9 MG/DL (8.5-10.1); CHLORIDE 107 MMOL/L (99-107); CREATININE 0.64 MG/DL (0.40-0.90); GLUCOSE 78 MG/DL (70-104); POTASSIUM 3.6 MMOL/L (3.5-5.1); SODIUM 141 MMOL/L (135-145); TOTAL CARBON DIOXIDE 28.1 MMOL/L (24-32); eGFR > 90 ML/MIN
[2020-04-28 07:12] LABS: ALANINE AMINOTRANSFERASE 27 U/L (12-78); ALKALINE PHOSPHATASE 104 IU/L (46-116)
[2020-04-28] MEDS: venlafaxine XR 37.5mg cap (Q24H) PO SCH (07:45)
[2020-04-28] MEDS: QUEtiapine 25mg tablet PO SCH ×2 (07:45→20:28)
[2020-04-28] MEDS: K and/or MAG REPLACEMENT MC SCH ×2 (08:00→20:00)
[2020-04-28] MEDS: ketoconazole 2% cream 15gm TP SCH ×3 (08:00→20:29)
--- NOTE | 2020-04-28 08:36 | NUR ---
Patient in room QUE 356. I have received report from Zandra CANO and had the opportunity to ask questions and assume patient care.
[2020-04-28 11:00] VITALS: BP 103/60
--- NOTE | 2020-04-28 16:19 | NUR ---
patient stated she did get up to void x1, bladder scanned patient 200mls observed. Encouraged patient to void , patient very withdrawn , growling at times able to reorientate will continue to monitor.
[2020-04-28 18:00] VITALS: BP 104/63
--- NOTE | 2020-04-28 18:42 | NUR ---
Problems reprioritized. Patient report given, questions answered & plan of care reviewed with Pat RN.
--- NOTE | 2020-04-28 18:45 | NUR ---
Student documentation: I have reviewed and agree with all interventions, assessments performed and documented by buck Hough.
[2020-04-29] VITALS: BP 97/53
--- NOTE | 2020-04-29 06:53 | NUR ---
Patient in room QUE 356. I have received report from Pat RN and had the opportunity to ask questions and assume patient care.
[2020-04-29 07:30] VITALS: BP 104/55
[2020-04-29] MEDS: K and/or MAG REPLACEMENT MC SCH ×2 (08:00→20:00)
[2020-04-29] MEDS: ketoconazole 2% cream 15gm TP SCH ×2 (08:00→20:39)
[2020-04-29] MEDS: venlafaxine XR 37.5mg cap (Q24H) PO SCH (08:25)
[2020-04-29] MEDS: QUEtiapine 25mg tablet PO SCH ×2 (08:26→20:40)
[2020-04-29 11:00] VITALS: BP 107/57
--- NOTE | 2020-04-29 16:04 | NUR ---
Initial: Pt presented to ER on a 5150 hold and admitted for being gravely disabled secondary to PTSD and major depressive disorder. Pt PO intake average 50% on regular diet and is not meeting estimated nutrient needs. RD internet database specialist met with patient at bedside. Food preferences were obtained and d/w dietary, pt requsts fruit cups, cottage cheese, and strawberry yogurt WL. Last BM 04/26, not receiving routine bowel care. D/w pt who reports currently with diarrhea, however pt declines nutrition intervention at this time. RD internet database specialist d/w RN who is aware pt has diarrhea and reports pt is afraid to eat d/t possible worsening of diarrhea. Pt would benefit from routine bowel care for bowel regularity. Will continue to monitor closely. Recs: 1. Continue regular diet, monitor for ONS needs 2. Fruit, cottage cheese, strawberry yogurt WL 2. Bowel care per Rx 3. Scaled wt per Rx Addendum: 04/29/20 at [address] Amended: Links added. Addendum: 04/29/20 at [address] I have reviewed and agree with note by Cement Block Maker. Nelly Ayala RD
[2020-04-29 18:00] VITALS: BP 111/56
--- NOTE | 2020-04-29 18:31 | NUR ---
Problems reprioritized. Patient report given, questions answered & plan of care reviewed with Shannan CANO.
--- NOTE | 2020-04-29 19:20 | NUR ---
Patient in room QUE 356. I have received report from Carlos CANO and had the opportunity to ask questions and assume patient care.
--- NOTE | 2020-04-30 03:54 | NUR ---
Student documentation: I have reviewed and agree with all interventions, assessments performed and documented by Charlotte OBRIEN. Student Medication Administration: For this medication-pass time frame, all medication were reviewed, dispensed, administered and documented per hospital policy by Charlotte OBRIEN.
--- NOTE | 2020-04-30 06:37 | NUR ---
Problems reprioritized. Patient report given, questions answered & plan of care reviewed with Elvira CANO.
[2020-04-30 07:00] VITALS: BP 110/67
--- NOTE | 2020-04-30 07:15 | NUR ---
Patient in room QUE 356. I have received report from JEROME Campbell and had the opportunity to ask questions and assume patient care.
[2020-04-30] MEDS: K and/or MAG REPLACEMENT MC SCH ×2 (08:00→20:00)
[2020-04-30] MEDS: ketoconazole 2% cream 15gm TP SCH ×2 (08:00→20:00)
[2020-04-30] MEDS: QUEtiapine 25mg tablet PO SCH ×2 (08:57→20:54)
[2020-04-30] MEDS: venlafaxine XR 37.5mg cap (Q24H) PO SCH (08:57)
[2020-04-30 12:00] VITALS: BP 86/59
--- NOTE | 2020-04-30 14:18 | NUR ---
Problems reprioritized. Patient report given, questions answered & plan of care reviewed with JEROME Sanchez.
[2020-04-30 18:00] VITALS: BP 120/66
--- NOTE | 2020-04-30 18:34 | NUR ---
Problems reprioritized. Patient report given, questions answered & plan of care reviewed with Carmina RN.
[2020-05-01] VITALS: BP 95/58
--- NOTE | 2020-05-01 06:33 | NUR ---
Patient in room QUE 356. I have received report from Pat RN and had the opportunity to ask questions and assume patient care.
[2020-05-01] MEDS: K and/or MAG REPLACEMENT MC SCH ×2 (07:04→19:27)
[2020-05-01 07:37] VITALS: BP 107/63
[2020-05-01] MEDS: ketoconazole 2% cream 15gm TP SCH ×2 (08:00→19:32)
[2020-05-01] MEDS: venlafaxine XR 37.5mg cap (Q24H) PO SCH (08:23)
[2020-05-01] MEDS: QUEtiapine 25mg tablet PO SCH ×2 (08:23→20:58)
[2020-05-01 11:59] VITALS: BP 108/61
[2020-05-01 18:00] VITALS: BP 95/53
--- NOTE | 2020-05-01 18:11 | NUR ---
Problems reprioritized. Patient report given, questions answered & plan of care reviewed with Manuel CANO.
--- NOTE | 2020-05-02 06:07 | NUR ---
Patient in room QUE 356. I have received report from Manuel CANO and had the opportunity to ask questions and assume patient care.
--- NOTE | 2020-05-02 06:20 | NUR ---
Problems reprioritized. Patient report given, questions answered & plan of care reviewed with ELEN. Addendum: 05/02/20 at 0621 by Ronnie Douglas RN Amended: Links added.
[2020-05-02 07:16] VITALS: BP_SYST 92; BP_SYST 98; BP_DIAS 55; BP_DIAS 59
[2020-05-02] MEDS: K and/or MAG REPLACEMENT MC SCH ×2 (07:20→20:00)
[2020-05-02] MEDS: QUEtiapine 25mg tablet PO SCH ×2 (07:27→20:48)
[2020-05-02] MEDS: venlafaxine XR 37.5mg cap (Q24H) PO SCH (07:27)
[2020-05-02] MEDS: ketoconazole 2% cream 15gm TP SCH ×2 (07:30→20:48)
[2020-05-02 07:31] VITALS: BP 92/59
[2020-05-02 11:09] VITALS: BP 117/69
[2020-05-02 11:50] VITALS: BP 117/69
[2020-05-02] MEDS ORDERED: polyethylene glycol 3350 17gm powd pack PO PRN (17:15)
[2020-05-02] MEDS ORDERED: bisacodyl 10mg suppository rectal RC PRN (17:15)
--- NOTE | 2020-05-02 17:25 | NUR ---
Reassessment: Pt PO continues to fluctuate now slight improvement to ~50-75% avg past 2 days on regular diet from period of 0-25% from 04/27-04/30. Chopped meats added to meals since receiving caution tray; dietary notified. Decent PO given age and dementia. Noted LBM 04/26 w/ no bowel care this admit; JESSICA dorman MD regarding routine bowel care this admit if agreeable given significant constipation. Previously diarrhea reported though not documented in EMR this admit only smears since admit. Will continue to monitor. Recs: 1. Continue regular diet, chopped meats, encourage PO 2. Fruit, cottage cheese, strawberry yogurt WL 3. routine Bowel care 4. weekly wts Addendum: 05/02/20 at [address] Amended: Links added.
--- NOTE | 2020-05-02 18:16 | NUR ---
Problems reprioritized. Patient report given, questions answered & plan of care reviewed with Manuel CANO.
[2020-05-02 18:30] VITALS: BP 126/73
[2020-05-02 19:04] VITALS: BP 126/73
[2020-05-02] MEDS: docusate sod 100mg capsule PO SCH (20:48)
--- NOTE | 2020-05-03 06:39 | NUR ---
Problems reprioritized. Patient report given, questions answered & plan of care reviewed with Kenia. Addendum: 05/03/20 at 0639 by Ronnie Douglas RN Amended: Links added.
[2020-05-03 07:40] VITALS: BP 90/50
[2020-05-03] MEDS: ketoconazole 2% cream 15gm TP SCH ×2 (08:00→21:48)
[2020-05-03] MEDS: K and/or MAG REPLACEMENT MC SCH ×2 (08:00→20:00)
[2020-05-03] MEDS: docusate sod 100mg capsule PO SCH ×2 (08:30→21:47)
[2020-05-03] MEDS: magnesium hydroxide 30ml (MOM) UD suspension PO PRN (08:30)
[2020-05-03] MEDS: QUEtiapine 25mg tablet PO SCH ×2 (08:30→21:48)
[2020-05-03] MEDS: venlafaxine XR 37.5mg cap (Q24H) PO SCH (08:30)
[2020-05-03 18:00] VITALS: BP 93/67
--- NOTE | 2020-05-03 18:22 | NUR ---
Problems reprioritized. Patient report given, questions answered & plan of care reviewed with JEROME LECHUGA.
--- NOTE | 2020-05-03 18:24 | NUR ---
ATTEMPTED TO GIVE PATIENT SUPPOSITORY THAT IS ORDERED. SHE REFUSED.
--- NOTE | 2020-05-03 18:41 | NUR ---
I have received report from Kenia CANO and had the opportunity to ask questions and assume patient care.
[2020-05-04] VITALS: BP 121/77
--- NOTE | 2020-05-04 06:37 | NUR ---
Problems reprioritized. Patient report given, questions answered & plan of care reviewed with Yunior CANO.
--- NOTE | 2020-05-04 06:50 | NUR ---
Patient in room QUE 356. I have received report from Rosio CANO and had the opportunity to ask questions and assume patient care.
[2020-05-04 07:00] VITALS: BP 91/51
--- NOTE | 2020-05-04 07:00 | NUR ---
Patient in room QUE 356. I have received report from JEROME LECHUGA and had the opportunity to ask questions and assume patient care.
[2020-05-04] MEDS: ketoconazole 2% cream 15gm TP SCH ×2 (08:00→20:00)
[2020-05-04] MEDS: K and/or MAG REPLACEMENT MC SCH ×2 (08:00→20:00)
[2020-05-04] MEDS: docusate sod 100mg capsule PO SCH ×2 (08:14→20:33)
[2020-05-04] MEDS: QUEtiapine 25mg tablet PO SCH ×2 (08:14→20:34)
[2020-05-04] MEDS: venlafaxine XR 37.5mg cap (Q24H) PO SCH (08:14)
--- NOTE | 2020-05-04 08:42 | NUR ---
No labs drawn for K and mag replacement. Primary RN notified.
[2020-05-04 10:52] VITALS: BP 92/63
--- NOTE | 2020-05-04 12:15 | NUR ---
Patient in room QUE 356. I have received report from Ronnie Delarosa and had the opportunity to ask questions and assume patient care.
[2020-05-04 13:30] VITALS: BP 102/58
--- NOTE | 2020-05-04 13:58 | NUR ---
Patient in room QUE 356. I have received report from Malik CANO and had the opportunity to ask questions and assume patient care.
--- NOTE | 2020-05-04 14:03 | NUR ---
Problems reprioritized. Patient report given, questions answered & plan of care reviewed with JEROME Weathers.
--- NOTE | 2020-05-04 17:00 | NUR ---
Reviewed PA from Ann Marie Iglesias and agree with findings. pt is stable and in no apparent distress. Pt is A & O x2, pt was changed, and wiped. Bedding changed and commode emptied.
--- NOTE | 2020-05-04 18:20 | NUR ---
Problems reprioritized. Patient report given, questions answered & plan of care reviewed with Pat RN.
[2020-05-04 19:00] VITALS: BP 113/61
[2020-05-05] VITALS: BP 95/55
[2020-05-05] MEDS: magnesium hydroxide 30ml (MOM) UD suspension PO PRN (05:13)
--- NOTE | 2020-05-05 06:37 | NUR ---
Patient in room QUE 356. I have received report from Pat RN and had the opportunity to ask questions and assume patient care.
[2020-05-05 07:00] VITALS: BP 124/64
[2020-05-05] MEDS: ketoconazole 2% cream 15gm TP SCH ×2 (07:47→20:00)
[2020-05-05] MEDS: docusate sod 100mg capsule PO SCH ×2 (07:47→20:04)
[2020-05-05] MEDS: QUEtiapine 25mg tablet PO SCH ×2 (07:47→20:03)
[2020-05-05] MEDS: venlafaxine XR 37.5mg cap (Q24H) PO SCH (07:47)
[2020-05-05] MEDS: K and/or MAG REPLACEMENT MC SCH ×2 (07:48→20:00)
[2020-05-05] MEDS ORDERED: ondansetron 4mg rapidly disintigrating tab PO PRN (09:25)
[2020-05-05 11:50] VITALS: BP 102/54
--- NOTE | 2020-05-05 15:50 | NUR ---
Reassessment: Patient's PO intake significantly improved since last RD assessment (05/02) documented with up to 75-100% PO intake, though noted that PO intake down to 25-50% PO intake today. Pt receiving chopped meat and food preferences. LBM 05/05 after no BM since 05/01. Pt started on routine bowel care 05/02 and is receiving PRN bowel care. Hopefully PO intake will improve with resolution of constipation. Pt awaiting placement per MD notes. Will continue to follow closely and make recommendations as appropriate. Recs: 1. Continue regular diet, chopped meats, encourage PO 2. [place] patient's food preferences: fruit, cottage cheese, strawberry yogurt WL 3. Routine bowel care 4. Weekly scaled wts Addendum: 05/05/20 at [address] Amended: Links added.
--- NOTE | 2020-05-05 18:25 | NUR ---
Problems reprioritized. Patient report given, questions answered & plan of care reviewed with Roberto CANO.
--- NOTE | 2020-05-05 18:38 | NUR ---
Patient in room ORTHO 4013. I have received report from JEROME Everett and had the opportunity to ask questions and assume patient care.
[2020-05-05 19:54] VITALS: BP 122/68
[2020-05-05 23:20] VITALS: BP_SYST 119; BP_SYST 122; BP_DIAS 68; BP_DIAS 70
[2020-05-06 06:00] VITALS: BP 90/56
--- NOTE | 2020-05-06 06:10 | NUR ---
received report from benjamín dsouza
--- NOTE | 2020-05-06 06:10 | NUR ---
Problems reprioritized. Patient report given, questions answered & plan of care reviewed with JEROME Brand.
[2020-05-06] MEDS: venlafaxine XR 37.5mg cap (Q24H) PO SCH (07:34)
[2020-05-06] MEDS: QUEtiapine 25mg tablet PO SCH ×2 (07:34→19:40)
[2020-05-06] MEDS: ketoconazole 2% cream 15gm TP SCH ×2 (07:35→19:41)
[2020-05-06] MEDS: docusate sod 100mg capsule PO SCH ×2 (07:36→19:40)
--- NOTE | 2020-05-06 07:36 | NUR ---
unable to save scanned med into [facility], checked all meds prior to admin
[2020-05-06] MEDS: K and/or MAG REPLACEMENT MC SCH ×2 (08:00→19:15)
[2020-05-06 10:00] VITALS: BP 98/59
--- NOTE | 2020-05-06 12:32 | NUR ---
Advised MD of strong/foul smelling urine odor asked if UA can be obtained. MD declined at this time and advised to push fluids.
[2020-05-06 18:00] VITALS: BP 101/58
--- NOTE | 2020-05-06 18:09 | NUR ---
gave report to benjamín hoskins
--- NOTE | 2020-05-06 20:32 | NUR ---
patient refused Nizoral cream. this was unavailable, notified pharmacy.
[2020-05-06 22:00] VITALS: BP 137/75
[2020-05-07 06:00] VITALS: BP 136/76
--- NOTE | 2020-05-07 06:23 | NUR ---
Problems reprioritized. Patient report given, questions answered & plan of care reviewed with JEROME Weathers.
--- NOTE | 2020-05-07 06:35 | NUR ---
Patient in room ORTHO 4009. I have received report from Estela CANO and had the opportunity to ask questions and assume patient care.
[2020-05-07] MEDS: ketoconazole 2% cream 15gm TP SCH ×2 (08:00→20:00)
[2020-05-07] MEDS: K and/or MAG REPLACEMENT MC SCH ×2 (08:00→20:00)
[2020-05-07] MEDS: venlafaxine XR 37.5mg cap (Q24H) PO SCH (09:14)
[2020-05-07] MEDS: docusate sod 100mg capsule PO SCH ×2 (09:14→20:29)
[2020-05-07] MEDS: QUEtiapine 25mg tablet PO SCH ×2 (09:14→20:29)
[2020-05-07 10:00] VITALS: BP 99/55
[2020-05-07 18:00] VITALS: BP 97/55
--- NOTE | 2020-05-07 18:07 | NUR ---
Problems reprioritized. Patient report given, questions answered & plan of care reviewed with Estela CANO.
[2020-05-07 22:00] VITALS: BP 131/64
[2020-05-08 06:00] VITALS: BP 102/56
--- NOTE | 2020-05-08 06:35 | NUR ---
Problems reprioritized. Patient report given, questions answered & plan of care reviewed with JEROME Weathers.
--- NOTE | 2020-05-08 06:45 | NUR ---
Patient in room ORTHO 4009. I have received report from Estela CANO and had the opportunity to ask questions and assume patient care.
[2020-05-08 07:00] VITALS: BP 102/56
--- NOTE | 2020-05-08 07:03 | NUR ---
Patient in room ORTHO 4009. I have received report from Estela CANO and had the opportunity to ask questions and assume patient care.
[2020-05-08] MEDS: K and/or MAG REPLACEMENT MC SCH ×2 (08:00→20:00)
[2020-05-08] MEDS: ketoconazole 2% cream 15gm TP SCH ×2 (08:00→20:00)
[2020-05-08] MEDS: docusate sod 100mg capsule PO SCH ×2 (08:56→20:00)
[2020-05-08] MEDS: venlafaxine XR 37.5mg cap (Q24H) PO SCH (08:56)
[2020-05-08] MEDS: QUEtiapine 25mg tablet PO SCH ×2 (08:56→20:37)
[2020-05-08 10:00] VITALS: BP 95/54
--- NOTE | 2020-05-08 14:00 | NUR ---
Pt did not eat lunch, when asked why she said it didn't taste good. Pt encouraged to eat more but did not want to. Addendum: 05/08/20 at 1433 by Rose Enrique STUDENT ABRIL Amended: Links added.
--- NOTE | 2020-05-08 18:17 | NUR ---
RECEIVED REPORT FROM PAM CANO AND ASSUMED PATIENT CARE
[2020-05-08 18:19] VITALS: BP_SYST 104; BP_SYST 92; BP_DIAS 35; BP_DIAS 64
--- NOTE | 2020-05-08 18:30 | NUR ---
Problems reprioritized. Patient report given, questions answered & plan of care reviewed with Marguerite CANO.
[2020-05-08 22:00] VITALS: BP 111/74
[2020-05-09 06:00] VITALS: BP 95/52
--- NOTE | 2020-05-09 06:15 | NUR ---
REPORT GIVEN TO JUNIOR CANO
--- NOTE | 2020-05-09 06:42 | NUR ---
Patient in room ORTHO 4009. I have received report from Marguerite CANO and had the opportunity to ask questions and assume patient care.
[2020-05-09] MEDS: K and/or MAG REPLACEMENT MC SCH ×2 (08:00→20:00)
[2020-05-09] MEDS: docusate sod 100mg capsule PO SCH ×2 (08:00→20:00)
[2020-05-09] MEDS: venlafaxine XR 37.5mg cap (Q24H) PO SCH ×2 (09:09→10:40)
[2020-05-09] MEDS: QUEtiapine 25mg tablet PO SCH ×3 (09:09→20:15)
[2020-05-09] MEDS: ketoconazole 2% cream 15gm TP SCH ×2 (10:43→20:14)
[2020-05-09 11:00] VITALS: BP 93/33
--- NOTE | 2020-05-09 12:37 | NUR ---
Reassessment: Patient's PO intake significantly improved since last RD assessment (05/02) documented with up to 75-100% PO intake, though noted that PO intake down to 25-50% PO intake today. Pt receiving chopped meat and food preferences. LBM 05/05 after no BM since 05/01. Pt started on routine bowel care 05/02 and is receiving PRN bowel care. Hopefully PO intake will improve with resolution of constipation. Pt awaiting placement per MD notes. Will continue to follow closely and make recommendations as appropriate. Recs: 1. Continue regular diet, chopped meats, encourage PO 2. [place] patient's food preferences: fruit, cottage cheese, strawberry yogurt WL 3. Routine bowel care 4. Weekly scaled wts Addendum: 05/09/20 at [address] Amended: Links added.
--- NOTE | 2020-05-09 18:06 | NUR ---
Patient in room QUE 356A. I have received report from Brenda RN and JEROME Everett and had the opportunity to ask questions and assume patient care.
--- NOTE | 2020-05-09 18:25 | NUR ---
Problems reprioritized. Patient report given, questions answered & plan of care reviewed with Savanna CANO.
[2020-05-09 18:30] VITALS: BP 101/61
[2020-05-10 04:00] VITALS: BP 105/57
--- NOTE | 2020-05-10 06:03 | NUR ---
Problems reprioritized. Patient report given, questions answered & plan of care reviewed with JEROME Everett.
--- NOTE | 2020-05-10 06:20 | NUR ---
Patient in room QUE 356. I have received report from Savanna CANO and had the opportunity to ask questions and assume patient care.
[2020-05-10 07:00] VITALS: BP 101/58
[2020-05-10] MEDS: docusate sod 100mg capsule PO SCH ×2 (08:00→21:09)
[2020-05-10] MEDS: venlafaxine XR 37.5mg cap (Q24H) PO SCH (08:22)
[2020-05-10] MEDS: K and/or MAG REPLACEMENT MC SCH ×2 (08:22→20:00)
[2020-05-10] MEDS: QUEtiapine 25mg tablet PO SCH ×2 (08:23→21:10)
[2020-05-10] MEDS: ketoconazole 2% cream 15gm TP SCH ×2 (08:23→21:10)
--- NOTE | 2020-05-10 08:30 | NUR ---
Patient in room QUE 356. I have received report from APOLLO Chan and had the opportunity to ask questions and assume patient care.
--- NOTE | 2020-05-10 09:53 | NUR ---
I have reviewed JEROME Everett (orientee) physical assessment charting and agree.
[2020-05-10 11:00] VITALS: BP 113/68
[2020-05-10 15:18] LABS: CLARITY,URINE SLIGHTLY CLOUDY (Clear); COLOR,URINE YELLOW (Yellow); GLUCOSE, URINE NEGATIVE (Neg); KETONES,URINE NEGATIVE (Neg); LEUKOCYTE ESTERASE ,URINE TRACE (Neg); NITRITES, URINE NEGATIVE (Neg); OCCULT BLOOD,URINE NEGATIVE (Neg); PROTEIN,URINE NEGATIVE (Neg); UROBILINOGEN,URINE 0.2 E.U/dL (0.2-1.0)
[2020-05-10 15:28] LABS: UA COLLECTION TYPE NON-SPECIFIED
[2020-05-10 15:51] LABS: SQUAMOUS EPITHELIAL CELL,UR MODERATE /LPF (FEW)
[2020-05-10 15:52] LABS: RBC,URINE 0-2 /HPF (0-2); TRANSITIONAL EPI CELLS,URINE FEW /HPF; WBC,URINE 0-4 /HPF (0-4)
[2020-05-10 15:54] LABS: MUCUS STRANDS FEW /LPF (Neg)
[2020-05-10 15:59] LABS: BACTERIA,URINE 2+ /HPF (Neg)
--- NOTE | 2020-05-10 18:23 | NUR ---
Problems reprioritized. Patient report given, questions answered & plan of care reviewed with Carmen CANO.
--- NOTE | 2020-05-10 18:37 | NUR ---
Patient in room QUE 356. I have received report from Marguerite CANO and had the opportunity to ask questions and assume patient care.
[2020-05-10 20:00] VITALS: BP 109/62
--- NOTE | 2020-05-11 06:34 | NUR ---
Problems reprioritized. Patient report given, questions answered & plan of care reviewed with Allison CANO.
--- NOTE | 2020-05-11 06:35 | NUR ---
Patient in room QUE 356. I have received report from Carmen and had the opportunity to ask questions and assume patient care.
[2020-05-11 07:20] VITALS: BP 114/69
[2020-05-11] MEDS: QUEtiapine 25mg tablet PO SCH ×2 (07:59→20:37)
[2020-05-11] MEDS: docusate sod 100mg capsule PO SCH ×2 (07:59→20:00)
[2020-05-11] MEDS: venlafaxine XR 37.5mg cap (Q24H) PO SCH (07:59)
[2020-05-11] MEDS: K and/or MAG REPLACEMENT MC SCH ×2 (08:00→20:00)
[2020-05-11] MEDS: ketoconazole 2% cream 15gm TP SCH ×2 (08:06→20:00)
[2020-05-11 10:55] VITALS: BP 90/46
--- NOTE | 2020-05-11 12:16 | NUR ---
Patient in room QUE 356. I have received report from Allison CANO and had the opportunity to ask questions and assume patient care.
[2020-05-11 18:00] VITALS: BP 135/88
--- NOTE | 2020-05-11 18:33 | NUR ---
Patient in room QUE 356. I have received report from JEROME Gutierrez and had the opportunity to ask questions and assume patient care.
--- NOTE | 2020-05-11 18:34 | NUR ---
Problems reprioritized. Patient report given, questions answered & plan of care reviewed with Roberto CANO.
--- NOTE | 2020-05-11 20:37 | NUR ---
Patient refused medications tonight. I educated her on the importance of her taking Seroquel. She is tary and thinks that she is going to be discharged to the streets, and wont be able to continue her medications anyway. I told her that we are working on a safe DC plan, and making sure she has medications to take is part of that plan. She say; I know I am being tols that but I don't trust it, what is being told to me". I reassured her and educated her again as to why she should take her medications while she is here and she still refused.
[2020-05-11] MEDS: magnesium hydroxide 30ml (MOM) UD suspension PO PRN (21:25)
[2020-05-12] VITALS: BP 105/56
--- NOTE | 2020-05-12 06:00 | NUR ---
Problems reprioritized. Patient report given, questions answered & plan of care reviewed with JEROME Everett.
--- NOTE | 2020-05-12 06:00 | NUR ---
Patient in room QUE 356. I have received report from Roberto CANO and had the opportunity to ask questions and assume patient care.
[2020-05-12 07:00] VITALS: BP 117/67
[2020-05-12] MEDS: venlafaxine XR 37.5mg cap (Q24H) PO SCH (07:27)
[2020-05-12] MEDS: docusate sod 100mg capsule PO SCH ×2 (07:28→20:00)
[2020-05-12] MEDS: QUEtiapine 25mg tablet PO SCH ×2 (07:28→21:00)
[2020-05-12] MEDS: ketoconazole 2% cream 15gm TP SCH ×2 (07:28→20:00)
[2020-05-12] MEDS: K and/or MAG REPLACEMENT MC SCH ×2 (08:10→19:30)
[2020-05-12 11:00] VITALS: BP 96/60
[2020-05-12] MEDS ORDERED: phenazopyridine 100mg tablet PO PRN (11:10)
[2020-05-12] MEDS: ciprofloxacin 250mg tablet PO SCH ×2 (11:35→19:41)
--- NOTE | 2020-05-12 18:11 | NUR ---
Problems reprioritized. Patient report given, questions answered & plan of care reviewed with Gabriella CANO.
[2020-05-12 20:22] VITALS: BP 113/62
--- NOTE | 2020-05-12 22:30 | NUR ---
Found patient on the floor. She states I feel fine I just got up with my blanket and it made me trip. Gait has been steady prior to this. No visivle injuries. Dr. Duffy on-call made aware of patients fall. No orders given.
[2020-05-13] VITALS: BP 116/55
[2020-05-13] MEDS: magnesium hydroxide 30ml (MOM) UD suspension PO PRN ×2 (03:40→16:08)
--- NOTE | 2020-05-13 05:32 | NUR ---
Pt is very paranoid this morning has not watched her TV most ot the night but is voicing concerns that the devil is in her TV and that she is in trouble because she turned it on earlier. Continue to try to reassure patient she is not in trouble. Put TV as far from her as possible.
--- NOTE | 2020-05-13 06:15 | NUR ---
Patient in room QUE 356A. I have received report from JEROME HU and had the opportunity to ask questions and assume patient care.
[2020-05-13 07:00] VITALS: BP 111/62
[2020-05-13] MEDS: ciprofloxacin 250mg tablet PO SCH ×2 (07:32→20:37)
[2020-05-13] MEDS: QUEtiapine 25mg tablet PO SCH ×2 (07:32→20:37)
[2020-05-13] MEDS: docusate sod 100mg capsule PO SCH ×2 (07:32→20:00)
[2020-05-13] MEDS: venlafaxine XR 37.5mg cap (Q24H) PO SCH (07:42)
[2020-05-13] MEDS: ketoconazole 2% cream 15gm TP SCH ×2 (07:43→20:00)
[2020-05-13] MEDS: K and/or MAG REPLACEMENT MC SCH ×2 (08:00→20:00)
[2020-05-13 11:00] VITALS: BP 99/55
[2020-05-13] MEDS ORDERED: bisacodyl 5mg tablet.DR PO PRN (12:30)
--- NOTE | 2020-05-13 19:35 | NUR ---
Problems reprioritized. Patient report given, questions answered & plan of care reviewed with HAMMAD CUEVA RN.
--- NOTE | 2020-05-13 19:36 | NUR ---
Patient in room QUE 356. I have received report from SQRQ RN and had the opportunity to ask questions and assume patient care.
[2020-05-13 20:00] VITALS: BP 110/67
[2020-05-14] VITALS: BP 118/72
--- NOTE | 2020-05-14 06:30 | NUR ---
Problems reprioritized. Patient report given, questions answered & plan of care reviewed with ANNA CANO.
--- NOTE | 2020-05-14 07:16 | NUR ---
Patient in room QUE 356. I have received report from HALEY CANO and had the opportunity to ask questions and assume patient care.
[2020-05-14 08:00] VITALS: BP 97/50
[2020-05-14] MEDS: ketoconazole 2% cream 15gm TP SCH ×2 (08:00→21:00)
[2020-05-14] MEDS: K and/or MAG REPLACEMENT MC SCH ×2 (08:00→20:00)
[2020-05-14] MEDS: venlafaxine XR 37.5mg cap (Q24H) PO SCH (08:00)
[2020-05-14] MEDS: ciprofloxacin 250mg tablet PO SCH ×2 (08:26→21:00)
[2020-05-14 11:00] VITALS: BP 106/61
--- NOTE | 2020-05-14 11:04 | NUR ---
PATIENT REFUSED TO TAKE PILLS THIS AM WILLING ONLY TO TAKE CIPRO.WILL CONTINUE TO MONITOR .
[2020-05-14] MEDS: QUEtiapine 25mg tablet PO SCH ×2 (11:32→21:00)
[2020-05-14] MEDS: docusate sod 100mg capsule PO SCH ×2 (11:32→21:00)
--- NOTE | 2020-05-14 18:42 | NUR ---
Patient compliant with taking rest of meds incontinent x1. using the commode also. Stated repeatedly that she thought she was leaving today. patient advised that she wasnt but difficult for patient to understand this. Report given to Endy CANO
--- NOTE | 2020-05-14 18:45 | NUR ---
Patient in room QUE 356. I have received report from ANNA CANO and had the opportunity to ask questions and assume patient care.
[2020-05-14 20:00] VITALS: BP 100/52
[2020-05-15] VITALS: BP 105/55
--- NOTE | 2020-05-15 06:30 | NUR ---
Problems reprioritized. Patient report given, questions answered & plan of care reviewed with ANNA CANO.
--- NOTE | 2020-05-15 06:30 | NUR ---
Problems reprioritized. Patient report given, questions answered & plan of care reviewed with ANNA CANO.
--- NOTE | 2020-05-15 06:39 | NUR ---
Patient in room QUE 356. I have received report from HALEY CANO and had the opportunity to ask questions and assume patient care.
[2020-05-15 07:00] VITALS: BP 114/68
[2020-05-15] MEDS: ketoconazole 2% cream 15gm TP SCH ×2 (08:00→20:00)
[2020-05-15] MEDS: ciprofloxacin 250mg tablet PO SCH ×2 (08:00→20:17)
[2020-05-15] MEDS: QUEtiapine 25mg tablet PO SCH ×2 (08:00→20:19)
[2020-05-15] MEDS: docusate sod 100mg capsule PO SCH ×2 (08:00→20:00)
[2020-05-15] MEDS: K and/or MAG REPLACEMENT MC SCH ×2 (08:00→20:00)
[2020-05-15] MEDS: venlafaxine XR 37.5mg cap (Q24H) PO SCH (08:00)
[2020-05-15 11:00] VITALS: BP 112/62
--- NOTE | 2020-05-15 12:54 | NUR ---
patient seen by Dr fermin is refusing all meds and care, appearing anxious and not trusting anything said to her. States 'you cant fix me with pills" will continue to monitor.
--- NOTE | 2020-05-15 13:53 | NUR ---
F/u 05/15: Pt PO ~75-100% avg regular diet meeting needs. Smear BM's 05/11 and 05/15 w/ only smears since admit per EMR; unsure of accuracy since receiving bowel care. Pt refusing routine colace and PRN MoM 05/13 per EMR. Will continue to monitor. Recs: 1. Continue regular diet, chopped meats, encourage PO 2. [place] patient's food preferences: fruit, cottage cheese, strawberry yogurt WL 3. Routine bowel care 4. Weekly scaled wts Addendum: 05/15/20 at [address] Amended: Links added.
[2020-05-15 18:00] VITALS: BP 104/66
--- NOTE | 2020-05-15 18:17 | NUR ---
Received report from JEROME Lewis and had the opportunity to ask questions and assume patient care. Call light and items of frequent use within reach. In no apparent distress. Will continue to monitor.
--- NOTE | 2020-05-15 18:24 | NUR ---
patient still refusing meds able to tolearte 25% of each meal. Talking and growling to self. Able to re-orientate. Report given to Savanna CANO
[2020-05-16] VITALS: BP 127/73
--- NOTE | 2020-05-16 06:45 | NUR ---
Patient in room QUE 356A. I have received report from JEROME TYSON and had the opportunity to ask questions and assume patient care.
[2020-05-16 07:00] VITALS: BP 108/64
[2020-05-16] MEDS: ciprofloxacin 250mg tablet PO SCH ×2 (08:00→19:29)
[2020-05-16] MEDS: docusate sod 100mg capsule PO SCH ×2 (08:00→19:30)
[2020-05-16] MEDS: QUEtiapine 25mg tablet PO SCH ×2 (08:00→19:33)
[2020-05-16] MEDS: venlafaxine XR 37.5mg cap (Q24H) PO SCH ×2 (08:00→19:32)
[2020-05-16] MEDS: ketoconazole 2% cream 15gm TP SCH ×2 (08:00→19:29)
[2020-05-16] MEDS: K and/or MAG REPLACEMENT MC SCH ×2 (08:00→19:40)
[2020-05-16 11:00] VITALS: BP 138/80
--- NOTE | 2020-05-16 17:00 | NUR ---
PATIENT REFUSED MEDS TODAY, DR NOTIFIED. PATIENT WAS APPROACHED MULTIPLE TIMES. PATIENT WAS EDUCATED ON BENEFIT OF TAKING MEDS, PATIENT STATED 'I WON'T TAKE THOSE MEDICATIONS, WHAT'S GOING ON WITH ME CAN'T BE FIXED BY MEDS." AND "I KNOW I'M LEAVING ANYWAY WHY TAKE THEM I WON'T TAKE THEM OUT THERE". PATIENT HAS BEEN TALKED TO BY MULTIPLE DISCIPLINES ABOUT HER CARE PLAN AND HAS BEEN ENCOURAGED TO TAKE HER MEDS. PATIENT STATES 'I'LL THINK ABOUT IT' WILL CONTINUE TO EDUCATE PATIENT AND ATTEMPT TO GIVE MEDS
--- NOTE | 2020-05-16 18:40 | NUR ---
Patient in room QUE 356A. I have received report from JEROME Leyva and had the opportunity to ask questions and assume patient care.
--- NOTE | 2020-05-16 19:28 | NUR ---
Problems reprioritized. Patient report given, questions answered & plan of care reviewed with JEROME TYSON.
[2020-05-16 19:38] VITALS: BP 120/80
--- NOTE | 2020-05-17 06:37 | NUR ---
Problems reprioritized. Patient report given, questions answered & plan of care reviewed with JEROME Leyva.
--- NOTE | 2020-05-17 06:53 | NUR ---
Patient in room QUE 356A. I have received report from JEROME TYSON and had the opportunity to ask questions and assume patient care.
[2020-05-17 07:00] VITALS: BP 103/63
[2020-05-17] MEDS: ketoconazole 2% cream 15gm TP SCH ×2 (08:00→22:50)
[2020-05-17] MEDS: K and/or MAG REPLACEMENT MC SCH ×3 (08:00→22:51)
[2020-05-17] MEDS: docusate sod 100mg capsule PO SCH ×2 (08:45→22:50)
[2020-05-17] MEDS: QUEtiapine 25mg tablet PO SCH ×2 (08:45→22:50)
[2020-05-17] MEDS: ciprofloxacin 250mg tablet PO SCH ×2 (08:45→22:50)
--- NOTE | 2020-05-17 08:53 | NUR ---
unable to scan any of the meds, pt refusing meds. Took cipro, docusate, quetiapine.
[2020-05-17 11:00] VITALS: BP 130/78
--- NOTE | 2020-05-17 18:27 | NUR ---
Problems reprioritized. Patient report given, questions answered & plan of care reviewed with HAMMAD CUEVA RN.
--- NOTE | 2020-05-17 18:30 | NUR ---
Patient in room QUE 356. I have received report from JEANNIE CANO and had the opportunity to ask questions and assume patient care.
--- NOTE | 2020-05-17 22:50 | NUR ---
PATIENT REFUSED TO TAKE HER HS MEDS EVEN AFTER 3 RN'S ATTEMPTED TO CONVINCED HER AT 3 DIFFERENT TIMES TO TAKE HER MEDS.
[2020-05-18] VITALS: BP 103/59
--- NOTE | 2020-05-18 06:33 | NUR ---
Problems reprioritized. Patient report given, questions answered & plan of care reviewed with KHANG CANO.
[2020-05-18 07:00] VITALS: BP 96/60
[2020-05-18] MEDS: docusate sod 100mg capsule PO SCH ×2 (08:00→20:00)
[2020-05-18] MEDS: ciprofloxacin 250mg tablet PO SCH ×2 (08:00→20:00)
[2020-05-18] MEDS: venlafaxine XR 37.5mg cap (Q24H) PO SCH (08:00)
[2020-05-18] MEDS: QUEtiapine 25mg tablet PO SCH ×2 (08:00→21:00)
[2020-05-18] MEDS: ketoconazole 2% cream 15gm TP SCH ×2 (08:00→20:00)
--- NOTE | 2020-05-18 18:06 | NUR ---
Problems reprioritized. Patient report given, questions answered & plan of care reviewed with JEROME Schumacher.
--- NOTE | 2020-05-18 18:30 | NUR ---
Patient in room QUE 356. I have received report from KHANG CANO and had the opportunity to ask questions and assume patient care.
[2020-05-18 20:00] VITALS: BP 116/76
[2020-05-18] MEDS: K and/or MAG REPLACEMENT MC SCH (20:00)
--- NOTE | 2020-05-19 06:15 | NUR ---
Problems reprioritized. Patient report given, questions answered & plan of care reviewed with KHANG CANO.
--- NOTE | 2020-05-19 06:57 | NUR ---
Patient in room QUE 356. I have received report from JEROME Schumacher and had the opportunity to ask questions and assume patient care.
[2020-05-19 07:20] VITALS: BP 102/65
[2020-05-19] MEDS: docusate sod 100mg capsule PO SCH (08:00)
[2020-05-19] MEDS: venlafaxine XR 37.5mg cap (Q24H) PO SCH (08:00)
[2020-05-19] MEDS: ciprofloxacin 250mg tablet PO SCH (08:00)
[2020-05-19] MEDS: QUEtiapine 25mg tablet PO SCH ×2 (08:00→21:00)
[2020-05-19] MEDS: K and/or MAG REPLACEMENT MC SCH ×2 (08:00→20:00)
[2020-05-19] MEDS: ketoconazole 2% cream 15gm TP SCH ×2 (08:00→20:00)
[2020-05-19 11:00] VITALS: BP 101/58
[2020-05-19 14:09] VITALS: BP 101/58
[2020-05-19 18:00] VITALS: BP 125/70
--- NOTE | 2020-05-19 18:30 | NUR ---
Report from Elvira CANO
--- NOTE | 2020-05-19 18:35 | NUR ---
Problems reprioritized. Patient report given, questions answered & plan of care reviewed with JEROME Galvan.
[2020-05-20] VITALS: BP 120/68
--- NOTE | 2020-05-20 06:28 | NUR ---
Report To Aiyana CAON
--- NOTE | 2020-05-20 06:58 | NUR ---
Patient in room QUE 346. I have received report from Mandy CANO and had the opportunity to ask questions and assume patient care.
[2020-05-20] MEDS: venlafaxine XR 37.5mg cap (Q24H) PO SCH ×2 (08:00→09:27)
[2020-05-20] MEDS: ketoconazole 2% cream 15gm TP SCH ×2 (08:00→20:00)
[2020-05-20] MEDS: K and/or MAG REPLACEMENT MC SCH ×2 (08:00→20:00)
[2020-05-20] MEDS: QUEtiapine 25mg tablet PO SCH ×3 (08:00→20:24)
--- NOTE | 2020-05-20 08:16 | NUR ---
Tried to convince pt to take her meds. Pt insists she is being "kicked out" today. I tried to explain to her no one was kicking her out, and that she was in the hospital and needed to take her meds so we can help her. She absolutely refused and said "this is the way it's got to be" over and over again. She was apologetic but firm that she would not take her meds. I tried to ask her why she was refusing her meds and she made multiple attempts to explain why she could not, and finally told me she was Addendum: 05/20/20 at 0823 by oRse SAMUELS (cont'd from previous) not able to explain it. "I can't explain it honey I wish I could but I just can't". I advised her we would go ahead and hold her meds for today, but maybe tomorrow when she was still here she would believe me that she was not getting kicked out and could take them. She gave a noncomittal "maybe" in response to that. Will try again tomorrow.
[2020-05-20 08:30] VITALS: BP 128/78
[2020-05-20 12:00] VITALS: BP 141/92
--- NOTE | 2020-05-20 17:35 | NUR ---
Student Medication Administration: For this medication-pass time frame, all medication were reviewed, dispensed, administered and documented per hospital policy by SN Rose. Student documentation: I have reviewed all interventions, assessments performed and documented by SN Rose.
--- NOTE | 2020-05-20 18:32 | NUR ---
Problems reprioritized. Patient report given, questions answered & plan of care reviewed with JEROME Schumacher.
--- NOTE | 2020-05-20 18:33 | NUR ---
Patient in room QUE 356. I have received report from VIK CANO and had the opportunity to ask questions and assume patient care.
[2020-05-20 20:00] VITALS: BP 117/80
--- NOTE | 2020-05-21 06:15 | NUR ---
Problems reprioritized. Patient report given, questions answered & plan of care reviewed with DAX CANO.
--- NOTE | 2020-05-21 06:19 | NUR ---
Patient in room QUE 356. I have received report from Faiza Kendall RN and had the opportunity to ask questions and assume patient care.
--- NOTE | 2020-05-21 06:30 | NUR ---
Rec'd report from Jenn Winston RN, Relief Charge, and coordinating care w/ Marguerite Watts RN ([facility]).
[2020-05-21] MEDS: K and/or MAG REPLACEMENT MC SCH ×2 (08:00→20:00)
[2020-05-21] MEDS: ketoconazole 2% cream 15gm TP SCH ×2 (08:11→20:00)
[2020-05-21] MEDS: QUEtiapine 25mg tablet PO SCH ×2 (08:26→20:47)
[2020-05-21] MEDS: venlafaxine XR 37.5mg cap (Q24H) PO SCH (08:26)
[2020-05-21 11:00] VITALS: BP 100/68
--- NOTE | 2020-05-21 12:33 | NUR ---
F/u 05/21: Pt PO 75-100% avg meals meeting needs. LBM 05/19 large per EMR. No nutrition concerns at this time. Will continue to monitor. Recs: 1. Continue regular diet, chopped meats, encourage PO 2. [place] patient's food preferences: fruit, cottage cheese, strawberry yogurt WL 3. Routine bowel care 4. Weekly scaled wts Addendum: 05/21/20 at [address] Amended: Links added.
--- NOTE | 2020-05-21 18:08 | NUR ---
Problems reprioritized. Patient report given, questions answered & plan of care reviewed with Faiza Kendall RN.
--- NOTE | 2020-05-21 18:30 | NUR ---
Patient in room QUE 356. I have received report from DAX CANO and had the opportunity to ask questions and assume patient care.
[2020-05-21 20:00] VITALS: BP 115/70
[2020-05-22] VITALS: BP 104/61
--- NOTE | 2020-05-22 06:36 | NUR ---
Problems reprioritized. Patient report given, questions answered & plan of care reviewed with JEANNIE CANO.
[2020-05-22 07:00] VITALS: BP 123/77
--- NOTE | 2020-05-22 07:32 | NUR ---
Patient in room QUE 356A. I have received report from HAMMAD CUEVA RN and had the opportunity to ask questions and assume patient care.
[2020-05-22] MEDS: K and/or MAG REPLACEMENT MC SCH ×2 (08:00→20:00)
[2020-05-22] MEDS: venlafaxine XR 37.5mg cap (Q24H) PO SCH (08:00)
[2020-05-22] MEDS: ketoconazole 2% cream 15gm TP SCH ×2 (08:00→20:00)
[2020-05-22] MEDS: QUEtiapine 25mg tablet PO SCH ×2 (11:09→21:00)
--- NOTE | 2020-05-22 18:40 | NUR ---
Problems reprioritized. Patient report given, questions answered & plan of care reviewed with PATI RN.
[2020-05-22 19:30] VITALS: BP 90/47
--- NOTE | 2020-05-23 06:52 | NUR ---
Patient in room QUE 356. I have received report from Pat RN and had the opportunity to ask questions and assume patient care.
[2020-05-23] MEDS: K and/or MAG REPLACEMENT MC SCH ×2 (08:00→19:39)
[2020-05-23] MEDS: QUEtiapine 25mg tablet PO SCH ×2 (08:00→21:00)
[2020-05-23] MEDS: ketoconazole 2% cream 15gm TP SCH ×2 (08:00→20:00)
[2020-05-23] MEDS: venlafaxine XR 37.5mg cap (Q24H) PO SCH (08:00)
--- NOTE | 2020-05-23 08:41 | NUR ---
Patient persistently refusing to taker her scheduled morning medications despite explaining to her what are they for and why its important. Charge nurse Allison also tried to convince her to take the medication but patient still refusing to take it. Patient repeatedly saying "I won't take, I don't want to!" Patient won't give specific reason why. When asked if she wants to get better, she said yes but then still refuse taking the medications.
[2020-05-23 11:00] VITALS: BP 110/71
--- NOTE | 2020-05-23 18:29 | NUR ---
Patient in room QUE 356. I have received report from Jemma CANO and had the opportunity to ask questions and assume patient care.
--- NOTE | 2020-05-23 18:41 | NUR ---
Problems reprioritized. Patient report given, questions answered & plan of care reviewed with Jaquelin CANO.
[2020-05-23 19:00] VITALS: BP 131/77
[2020-05-23] MEDS: magnesium hydroxide 30ml (MOM) UD suspension PO PRN (19:50)
[2020-05-23] MEDS: docusate sod 100mg capsule PO PRN (19:50)
--- NOTE | 2020-05-23 23:50 | NUR ---
Patient refused to have 2nd set of vitals signs taken.
--- NOTE | 2020-05-24 06:53 | NUR ---
Problems reprioritized. Patient report given, questions answered & plan of care reviewed with Debbie CANO and Alexus CANO.
--- NOTE | 2020-05-24 07:01 | NUR ---
Patient in room QUE 356. I have received report from Jaquelin CANO and had the opportunity to ask questions and assume patient care.
[2020-05-24] MEDS: ketoconazole 2% cream 15gm TP SCH ×2 (08:00→20:00)
[2020-05-24] MEDS: K and/or MAG REPLACEMENT MC SCH ×2 (08:00→20:00)
[2020-05-24] MEDS: venlafaxine XR 37.5mg cap (Q24H) PO SCH (08:10)
[2020-05-24] MEDS: QUEtiapine 25mg tablet PO SCH ×2 (08:11→21:00)
--- NOTE | 2020-05-24 14:07 | NUR ---
Patient compliant this am with taking pills. able to rest/sleep most of am. will continue to monitor.
[2020-05-24 18:30] VITALS: BP 91/47
--- NOTE | 2020-05-24 18:40 | NUR ---
Patient in room QUE 356. I have received report from Debbie CANO and had the opportunity to ask questions and assume patient care.
--- NOTE | 2020-05-24 18:47 | NUR ---
patient up and about appears calm. report given to cameron CANO
[2020-05-25] MEDS: QUEtiapine 25mg tablet PO SCH ×2 (06:30→18:30)
[2020-05-25 07:00] VITALS: BP 111/56
--- NOTE | 2020-05-25 07:03 | NUR ---
Patient in room QUE 356A. I have received report from JEROME MURO and had the opportunity to ask questions and assume patient care.
[2020-05-25] MEDS: ketoconazole 2% cream 15gm TP SCH ×2 (08:00→21:14)
[2020-05-25] MEDS: venlafaxine XR 37.5mg cap (Q24H) PO SCH (08:00)
[2020-05-25] MEDS: K and/or MAG REPLACEMENT MC SCH ×2 (08:00→19:40)
[2020-05-25 11:00] VITALS: BP 120/72
[2020-05-25 18:30] VITALS: BP 106/64
--- NOTE | 2020-05-25 18:39 | NUR ---
Problems reprioritized. Patient report given, questions answered & plan of care reviewed with JEROME MURO.
--- NOTE | 2020-05-25 18:40 | NUR ---
Patient in room QUE 356. I have received report from Autumn CANO and had the opportunity to ask questions and assume patient care.
[2020-05-26] VITALS: BP 110/71
--- NOTE | 2020-05-26 03:10 | NUR ---
Unable to get patient to take her seroquel medication at beginning of shift. Patient did allow for cream to be applied to area just above gluteal cleft.
--- NOTE | 2020-05-26 06:41 | NUR ---
Problems reprioritized. Patient report given, questions answered & plan of care reviewed with Aiyana CANO and acute care nursing assistant Sandy CANO.
[2020-05-26 07:45] VITALS: BP 104/64
[2020-05-26] MEDS: ketoconazole 2% cream 15gm TP SCH ×2 (08:00→20:00)
[2020-05-26] MEDS: K and/or MAG REPLACEMENT MC SCH ×2 (08:00→20:00)
[2020-05-26] MEDS: venlafaxine XR 37.5mg cap (Q24H) PO SCH (08:07)
[2020-05-26] MEDS: QUEtiapine 25mg tablet PO SCH ×2 (08:08→18:30)
[2020-05-26 11:00] VITALS: BP 103/48
[2020-05-26 18:00] VITALS: BP 102/68
--- NOTE | 2020-05-26 18:24 | NUR ---
Problems reprioritized. Patient report given, questions answered & plan of care reviewed with JEROME DE LEON.
--- NOTE | 2020-05-26 18:30 | NUR ---
Patient in room QUE 356. I have received report from VIK CANO and had the opportunity to ask questions and assume patient care.
[2020-05-27] MEDS: QUEtiapine 25mg tablet PO SCH ×2 (06:30→18:30)
--- NOTE | 2020-05-27 06:32 | NUR ---
Problems reprioritized. Patient report given, questions answered & plan of care reviewed with VIK CANO.
[2020-05-27] MEDS: K and/or MAG REPLACEMENT MC SCH ×2 (08:00→20:00)
[2020-05-27] MEDS: ketoconazole 2% cream 15gm TP SCH ×2 (08:00→20:00)
[2020-05-27] MEDS: venlafaxine XR 37.5mg cap (Q24H) PO SCH (08:00)
--- NOTE | 2020-05-27 09:53 | NUR ---
patient refused AM vitals. Addendum: 05/27/20 at 0953 by Kenia Gonzales RN Amended: Links added.
[2020-05-27 11:19] VITALS: BP 106/51
--- NOTE | 2020-05-27 18:11 | NUR ---
Problems reprioritized. Patient report given, questions answered & plan of care reviewed with JEROME Schumacher.
--- NOTE | 2020-05-27 18:30 | NUR ---
Patient in room QUE 356. I have received report from VIK CANO and had the opportunity to ask questions and assume patient care.
[2020-05-27 20:00] VITALS: BP 130/66
--- NOTE | 2020-05-28 06:25 | NUR ---
Problems reprioritized. Patient report given, questions answered & plan of care reviewed with ELEN CANO AND RICHARD RN.
[2020-05-28] MEDS: QUEtiapine 25mg tablet PO SCH ×3 (06:30→18:13)
--- NOTE | 2020-05-28 07:00 | NUR ---
Patient in room QUE 356. I have received report from Endy CANO and had the opportunity to ask questions and assume patient care.
--- NOTE | 2020-05-28 07:30 | NUR ---
Patient refused her VS, will attempt to monitor afternoon VS.
[2020-05-28] MEDS: venlafaxine XR 37.5mg cap (Q24H) PO SCH ×2 (07:34→08:00)
[2020-05-28] MEDS: ketoconazole 2% cream 15gm TP SCH ×2 (07:36→20:00)
[2020-05-28 08:00] VITALS: BP 93/61
[2020-05-28] MEDS: K and/or MAG REPLACEMENT MC SCH ×2 (08:00→20:00)
--- NOTE | 2020-05-28 11:38 | NUR ---
Reassessment: Pt continues eating well with documented 75-100% PO intake on regular diet while receiving food preferences meeting estimated nutrient needs. [facility] 05/26. No further nutrition intervention warranted at this time. Will continue to follow. Recommendations: 1. Continue regular diet, chopped meat 2. [place] patient's food preferences: fruit, cottage cheese, strawberry yogurt WL 3. Routine bowel care 4. Weekly scaled wts Addendum: 05/28/20 at [address] Amended: Links added.
--- NOTE | 2020-05-28 18:17 | NUR ---
Problems reprioritized. Patient report given, questions answered & plan of care reviewed with Endy CANO.
--- NOTE | 2020-05-28 18:30 | NUR ---
Patient in room QUE 356. I have received report from ELEN CANO AND RICHARD RN and had the opportunity to ask questions and assume patient care.
[2020-05-28 20:00] VITALS: BP 103/54
--- NOTE | 2020-05-29 06:30 | NUR ---
Problems reprioritized. Patient report given, questions answered & plan of care reviewed with JEANNIE CANO.
--- NOTE | 2020-05-29 06:50 | NUR ---
Patient in room QUE 356A. I have received report from HAMMAD CUEVA RN and had the opportunity to ask questions and assume patient care.
[2020-05-29 07:00] VITALS: BP 111/72
[2020-05-29] MEDS: K and/or MAG REPLACEMENT MC SCH ×2 (08:00→19:59)
[2020-05-29] MEDS: ketoconazole 2% cream 15gm TP SCH ×2 (08:00→19:59)
[2020-05-29] MEDS: venlafaxine XR 37.5mg cap (Q24H) PO SCH (08:42)
[2020-05-29] MEDS: QUEtiapine 25mg tablet PO SCH ×2 (08:42→17:52)
--- NOTE | 2020-05-29 18:41 | NUR ---
Problems reprioritized. Patient report given, questions answered & plan of care reviewed with JEROME LECHUGA.
--- NOTE | 2020-05-29 19:00 | NUR ---
I have received report from Autumn CANO and had the opportunity to ask questions and assume patient care.
--- NOTE | 2020-05-29 21:31 | NUR ---
pt refused vital signs Addendum: 05/29/20 at 2132 by Rosio Khan RN Amended: Links added.
--- NOTE | 2020-05-30 06:09 | NUR ---
Problems reprioritized. Patient report given, questions answered & plan of care reviewed with Autumn CANO.
--- NOTE | 2020-05-30 06:38 | NUR ---
Patient in room QUE 356A. I have received report from JEROME LECHUGA and had the opportunity to ask questions and assume patient care.
[2020-05-30 08:00] VITALS: BP 98/56
[2020-05-30] MEDS: ketoconazole 2% cream 15gm TP SCH ×2 (08:00→19:07)
[2020-05-30] MEDS: K and/or MAG REPLACEMENT MC SCH ×2 (08:00→19:06)
[2020-05-30] MEDS: venlafaxine XR 37.5mg cap (Q24H) PO SCH (08:29)
[2020-05-30] MEDS: QUEtiapine 25mg tablet PO SCH ×2 (08:29→18:17)
--- NOTE | 2020-05-30 18:33 | NUR ---
Problems reprioritized. Patient report given, questions answered & plan of care reviewed with JEROME LECHUGA.
--- NOTE | 2020-05-30 18:34 | NUR ---
I have received report from Autumn CANO and had the opportunity to ask questions and assume patient care.
[2020-05-30 19:00] VITALS: BP 110/62
[2020-05-31 04:18] LABS: CLARITY,URINE CLOUDY (Clear); COLOR,URINE YELLOW (Yellow); GLUCOSE, URINE NEGATIVE (Neg); KETONES,URINE NEGATIVE (Neg); LEUKOCYTE ESTERASE ,URINE SMALL (Neg); NITRITES, URINE NEGATIVE (Neg); OCCULT BLOOD,URINE NEGATIVE (Neg); PH,URINE 5.5 (4.8-8.0); PROTEIN,URINE NEGATIVE (Neg); UROBILINOGEN,URINE 0.2 E.U/dL (0.2-1.0)
[2020-05-31 04:20] LABS: UA COLLECTION TYPE FOLEY CATH
[2020-05-31 04:29] LABS: BACTERIA,URINE 4+ /HPF (Neg); CAL OXALATE CRYSTALS FEW /HPF (NEGATIVE); RBC,URINE NONE SEEN /HPF (0-2); SQUAMOUS EPITHELIAL CELL,UR FEW /LPF (FEW); WBC,URINE 0-4 /HPF (0-4)
--- NOTE | 2020-05-31 06:25 | NUR ---
Problems reprioritized. Patient report given, questions answered & plan of care reviewed with Conchita CANO.
[2020-05-31 06:52] LABS: BASOPHILS % (AUTO) 0.5 % (0-1); EOSINOPHILS # (AUTO) 0.1 X10'3 (0-0.9); EOSINOPHILS % (AUTO) 2.4 % (0-6); HEMATOCRIT 34.5 % (35.0-45.0); HEMOGLOBIN 11.4 g/dl (12.0-16.0); LYMPHOCYTES # (AUTO) 1.9 X10'3 (1.1-4.8); LYMPHOCYTES % (AUTO) 38.2 % (21-51); MEAN CORPUSCULAR HEMOGLOBIN 31.4 PG (27.0-31.0); MEAN CORPUSCULAR VOLUME 95.2 FL (78-98); MEAN PLATELET VOLUME 6.6 FL (7.4-10.4); MONOCYTES # (AUTO) 0.3 X10'3 (0-0.9); MONOCYTES % (AUTO) 5.3 % (2-12); NEUTROPHILS # (AUTO) 2.7 X10'3 (1.8-7.7); NEUTROPHILS % (AUTO) 53.6 % (42-75); PLATELET COUNT 234 X10'3 (140-440); RED BLOOD COUNT 3.62 X10'6 (4.20-5.60)
[2020-05-31 07:08] VITALS: BP 118/58
[2020-05-31 07:20] LABS: ALANINE AMINOTRANSFERASE 15 U/L (12-78); ALBUMIN 2.6 G/DL (3.4-5.0); ALBUMIN/GLOBULIN RATIO 0.9 (1.1-1.5); ALKALINE PHOSPHATASE 74 IU/L (46-116); ANION GAP 9 (8-16); ASPARTATE AMINO TRANSFERASE 9 U/L (10-37); BILIRUBIN,TOTAL 0.3 MG/DL (0.1-1.0); BLOOD UREA NITROGEN 18 MG/DL (7-18); BUN/CREATININE RATIO 34.6 (6.6-38.0); CALCIUM 8.6 MG/DL (8.5-10.1); CHLORIDE 109 MMOL/L (99-107); CREATININE 0.52 MG/DL (0.40-0.90); GLUCOSE 83 MG/DL (70-104); POTASSIUM 3.9 MMOL/L (3.5-5.1); SODIUM 144 MMOL/L (135-145); TOTAL CARBON DIOXIDE 26.3 MMOL/L (24-32); TOTAL PROTEIN 5.6 G/DL (6.4-8.2); eGFR > 90 ML/MIN
[2020-05-31] MEDS: QUEtiapine 25mg tablet PO SCH ×2 (07:21→17:57)
[2020-05-31] MEDS: acetaminophen 325mg tablet PO PRN (07:21)
[2020-05-31] MEDS: venlafaxine XR 37.5mg cap (Q24H) PO SCH (07:21)
[2020-05-31] MEDS: ketoconazole 2% cream 15gm TP SCH ×2 (08:00→20:00)
[2020-05-31] MEDS: K and/or MAG REPLACEMENT MC SCH ×2 (08:00→20:00)
[2020-05-31 11:49] VITALS: BP 93/47
--- NOTE | 2020-05-31 12:34 | NUR ---
PAGER ID: [phone] MESSAGE: Tatyana Baez 356A UA positive, pt. low grade fever 99.0, and c/o suprapubic tenderness. Did you want pt to take some antibiotics or did you want to wait for pending culture? Conchita [phone]
[2020-05-31] MEDS ORDERED: levoFLOXACIN 250mg tablet PO SCH (14:10)
--- NOTE | 2020-05-31 16:27 | NUR ---
PT. RECEIVED FULL SHOWER. MAX ASSIST. TOLERATED WELL. WANTS BUTTERFINGER BAR FOR DINNER. CALLED KITCHEN.
[2020-05-31] MEDS: levoFLOXACIN 250mg tablet PO SCH (17:57)
--- NOTE | 2020-05-31 18:11 | NUR ---
Problems reprioritized. Patient report given, questions answered & plan of care reviewed with Savanna CANO.
--- NOTE | 2020-05-31 18:40 | NUR ---
Patient in room QUE 356A. I have received report from JEROME Arango and had the opportunity to ask questions and assume patient care.
[2020-05-31 20:00] VITALS: BP 130/62
--- NOTE | 2020-06-01 06:09 | NUR ---
Problems reprioritized. Patient report given, questions answered & plan of care reviewed with JEROME Arango.
[2020-06-01 08:00] VITALS: BP 108/60
[2020-06-01] MEDS: ketoconazole 2% cream 15gm TP SCH ×2 (08:00→20:00)
[2020-06-01] MEDS: K and/or MAG REPLACEMENT MC SCH ×2 (08:00→20:00)
[2020-06-01] MEDS: venlafaxine XR 37.5mg cap (Q24H) PO SCH (08:31)
[2020-06-01] MEDS: QUEtiapine 25mg tablet PO SCH ×2 (08:31→18:02)
[2020-06-01 10:30] VITALS: BP 108/60
--- NOTE | 2020-06-01 12:00 | NUR ---
Patient in room QUE 356. I have received report from Conchita CANO and had the opportunity to ask questions and assume patient care.
[2020-06-01] MEDS: levoFLOXACIN 250mg tablet PO SCH (18:01)
--- NOTE | 2020-06-01 18:18 | NUR ---
Problems reprioritized. Patient report given, questions answered & plan of care reviewed with Conchita CANO.
--- NOTE | 2020-06-01 18:23 | NUR ---
GAVE REPORT TO JONATHAN Barahona
--- NOTE | 2020-06-01 18:35 | NUR ---
Patient in room QUE 356. I have received report from JEROME Arango and had the opportunity to ask questions and assume patient care.
[2020-06-01] MEDS: lactobacillus rhamnosus 10,000 MMU CELLS/CAPSULE PO SCH (20:00)
--- NOTE | 2020-06-01 23:16 | NUR ---
Patient refusing vital signs
--- NOTE | 2020-06-02 06:34 | NUR ---
Problems reprioritized. Patient report given, questions answered & plan of care reviewed with JEROME Aquino.
[2020-06-02 07:17] VITALS: BP 105/63
[2020-06-02] MEDS: K and/or MAG REPLACEMENT MC SCH ×2 (08:00→20:00)
[2020-06-02] MEDS: ketoconazole 2% cream 15gm TP SCH ×2 (08:00→20:00)
[2020-06-02] MEDS: QUEtiapine 25mg tablet PO SCH ×2 (08:02→17:37)
[2020-06-02] MEDS: lactobacillus rhamnosus 10,000 MMU CELLS/CAPSULE PO SCH ×2 (08:02→20:00)
[2020-06-02] MEDS: venlafaxine XR 37.5mg cap (Q24H) PO SCH (08:02)
--- NOTE | 2020-06-02 11:26 | NUR ---
Reassessment: Pt continues eating well with documented 75-100% PO intake on regular diet while receiving food preferences meeting estimated nutrient needs. [facility] 05/31. No further nutrition intervention warranted at this time. Will continue to follow. Recommendations: 1. Continue regular diet, chopped meat 2. [place] patient's food preferences: fruit, cottage cheese, strawberry yogurt WL 3. Routine bowel care 4. Weekly scaled wts Addendum: 06/02/20 at [address] Amended: Links added.
[2020-06-02] MEDS: levoFLOXACIN 250mg tablet PO SCH (17:37)
[2020-06-02 18:00] VITALS: BP 142/76
--- NOTE | 2020-06-02 18:16 | NUR ---
Problems reprioritized. Patient report given, questions answered & plan of care reviewed with peggy marquez RN.
--- NOTE | 2020-06-02 18:19 | NUR ---
Patient in room QUE 356. I have received report from JEROME Aquion and had the opportunity to ask questions and assume patient care.
--- NOTE | 2020-06-02 20:30 | NUR ---
Patient refusing assessment.
--- NOTE | 2020-06-03 06:14 | NUR ---
Problems reprioritized. Patient report given, questions answered & plan of care reviewed with JEROME Aquino.
[2020-06-03 08:00] VITALS: BP 109/52
[2020-06-03] MEDS: K and/or MAG REPLACEMENT MC SCH ×2 (08:00→20:00)
[2020-06-03] MEDS: ketoconazole 2% cream 15gm TP SCH ×2 (08:00→20:00)
[2020-06-03] MEDS: lactobacillus rhamnosus 10,000 MMU CELLS/CAPSULE PO SCH ×2 (08:12→17:30)
[2020-06-03] MEDS: venlafaxine XR 37.5mg cap (Q24H) PO SCH (08:12)
[2020-06-03] MEDS: QUEtiapine 25mg tablet PO SCH ×2 (08:13→17:03)
[2020-06-03] MEDS: levoFLOXACIN 250mg tablet PO SCH (17:03)
[2020-06-03] MEDS: risperiDONE 0.5mg tablet PO SCH ×2 (17:30→17:41)
[2020-06-03 18:00] VITALS: BP 124/70
--- NOTE | 2020-06-03 18:06 | NUR ---
Problems reprioritized. Patient report given, questions answered & plan of care reviewed with JEROME CASTILLO.
--- NOTE | 2020-06-03 18:32 | NUR ---
Patient in room QUE 356. I have received report from JEROME Aquino and had the opportunity to ask questions and assume patient care
[2020-06-03] MEDS ORDERED: risperiDONE 0.5mg tablet PO SCH (20:00)
--- NOTE | 2020-06-04 06:13 | NUR ---
Problems reprioritized. Patient report given, questions answered & plan of care reviewed with JEROME Gutierrez.
--- NOTE | 2020-06-04 06:41 | NUR ---
Patient in room QUE 356. I have received report from Zandra Johnson RN and had the opportunity to ask questions and assume patient care.
[2020-06-04 06:57] VITALS: BP 110/65
[2020-06-04] MEDS: lactobacillus rhamnosus 10,000 MMU CELLS/CAPSULE PO SCH ×2 (07:30→16:55)
[2020-06-04] MEDS: risperiDONE 0.5mg tablet PO SCH ×2 (07:30→16:55)
[2020-06-04] MEDS: venlafaxine XR 37.5mg cap (Q24H) PO SCH (07:30)
[2020-06-04] MEDS: ketoconazole 2% cream 15gm TP SCH ×2 (08:00→20:00)
[2020-06-04] MEDS: K and/or MAG REPLACEMENT MC SCH ×2 (08:00→20:00)
--- NOTE | 2020-06-04 08:57 | NUR ---
Refusing medications at this time patient states " they are cancer causing" educated patient on the need to take medications patient still refusing.
--- NOTE | 2020-06-04 10:30 | NUR ---
No labs ordered today
--- NOTE | 2020-06-04 14:27 | NUR ---
PAGER ID: [phone] MESSAGE: Brenda-Surg [phone] Re: Sasha 356A Please call re: Levaquin notes state patient is finished with Antibiotic just want to clarify due to she is still on Levaquin started on 06/01
[2020-06-04] MEDS: levoFLOXACIN 250mg tablet PO SCH (16:42)
--- NOTE | 2020-06-04 18:26 | NUR ---
Problems reprioritized. Patient report given, questions answered & plan of care reviewed with Endy CANO.
[2020-06-04 18:30] VITALS: BP 94/76
--- NOTE | 2020-06-04 18:30 | NUR ---
Patient in room QUE 356. I have received report from JUSTIN CANO and had the opportunity to ask questions and assume patient care.
--- NOTE | 2020-06-05 06:25 | NUR ---
Problems reprioritized. Patient report given, questions answered & plan of care reviewed with DAVID CANO.
[2020-06-05] MEDS: K and/or MAG REPLACEMENT MC SCH ×2 (07:48→20:00)
[2020-06-05] MEDS: venlafaxine XR 37.5mg cap (Q24H) PO SCH (07:55)
[2020-06-05] MEDS: lactobacillus rhamnosus 10,000 MMU CELLS/CAPSULE PO SCH ×2 (07:55→17:30)
[2020-06-05] MEDS: risperiDONE 0.5mg tablet PO SCH ×2 (07:55→17:30)
[2020-06-05 08:00] VITALS: BP 104/53
[2020-06-05] MEDS: ketoconazole 2% cream 15gm TP SCH ×2 (08:00→20:58)
[2020-06-05 19:00] VITALS: BP 95/50
--- NOTE | 2020-06-06 06:13 | NUR ---
Problems reprioritized. Patient report given, questions answered & plan of care reviewed with JEANNIE. Addendum: 06/06/20 at 0613 by Ronnie Douglas RN Amended: Links added.
--- NOTE | 2020-06-06 06:59 | NUR ---
Patient in room QUE 356. I have received report from Manuel CANO and had the opportunity to ask questions and assume patient care.
[2020-06-06 08:00] VITALS: BP 93/47
[2020-06-06] MEDS: K and/or MAG REPLACEMENT MC SCH ×2 (08:00→20:00)
[2020-06-06] MEDS: venlafaxine XR 37.5mg cap (Q24H) PO SCH (08:03)
[2020-06-06] MEDS: lactobacillus rhamnosus 10,000 MMU CELLS/CAPSULE PO SCH ×2 (08:03→17:30)
[2020-06-06] MEDS: risperiDONE 0.5mg tablet PO SCH (08:03)
[2020-06-06] MEDS: docusate sod 100mg capsule PO PRN (08:03)
--- NOTE | 2020-06-06 17:57 | NUR ---
Problems reprioritized. Patient report given, questions answered & plan of care reviewed with JEROME IRVING.
[2020-06-06 19:10] VITALS: BP 121/67
[2020-06-06 20:00] VITALS: BP 121/67
--- NOTE | 2020-06-07 06:24 | NUR ---
Problems reprioritized. Patient report given, questions answered & plan of care reviewed with SHEMAR. Addendum: 06/07/20 at 0624 by Ronnie Douglas RN Amended: Links added.
--- NOTE | 2020-06-07 06:29 | NUR ---
Patient in room QUE 356. I have received report from JEROME Jackson and had the opportunity to ask questions and assume patient care.
[2020-06-07 07:01] VITALS: BP 105/54
[2020-06-07] MEDS: venlafaxine XR 37.5mg cap (Q24H) PO SCH (07:30)
[2020-06-07] MEDS: lactobacillus rhamnosus 10,000 MMU CELLS/CAPSULE PO SCH ×2 (07:30→17:30)
[2020-06-07] MEDS: K and/or MAG REPLACEMENT MC SCH ×2 (08:00→20:00)
[2020-06-07 20:00] VITALS: BP 119/58
--- NOTE | 2020-06-08 06:30 | NUR ---
Received report from Manuel, Relief stained glass window designer, and noemi Del Angel RN recieved report from JEROME Corrales. Pt sleeping no distress noted.
--- NOTE | 2020-06-08 06:52 | NUR ---
Patient in room QUE 356. I have received report from JEROME Corrales and had the opportunity to ask questions and assume patient care.
[2020-06-08 07:00] VITALS: BP 125/76
[2020-06-08] MEDS: venlafaxine XR 37.5mg cap (Q24H) PO SCH (07:30)
[2020-06-08] MEDS: lactobacillus rhamnosus 10,000 MMU CELLS/CAPSULE PO SCH ×2 (07:30→17:30)
[2020-06-08] MEDS: K and/or MAG REPLACEMENT MC SCH ×2 (08:00→20:00)
--- NOTE | 2020-06-08 18:05 | NUR ---
Patient in room QUE 356A. I have received report from JEROME Del Angel and had the opportunity to ask questions and assume patient care.
--- NOTE | 2020-06-08 19:12 | NUR ---
Problems reprioritized. Patient report given, questions answered & plan of care reviewed with JEROME Corrales.
[2020-06-08 20:00] VITALS: BP 117/58
[2020-06-08] MEDS: traZODone 50mg tablet PO SCH (20:25)
[2020-06-09 08:00] VITALS: BP 97/41
[2020-06-09] MEDS: K and/or MAG REPLACEMENT MC SCH ×2 (08:00→20:00)
[2020-06-09 12:00] VITALS: BP 122/64
--- NOTE | 2020-06-09 12:31 | NUR ---
Reassessment: Pt continues eating well with documented 75-100% PO intake on regular diet meeting estimated nutrient needs. Food preferences are being honored. [facility] 06/07. No further nutrition intervention warranted at this time. Will continue to follow. Recommendations: 1. Continue regular diet, chopped meat 2. [place] patient's food preferences: fruit, cottage cheese, strawberry yogurt WL 3. Routine bowel care 4. Weekly scaled wts Addendum: 06/09/20 at [address] Amended: Links added.
[2020-06-09] MEDS: lactobacillus rhamnosus 10,000 MMU CELLS/CAPSULE PO SCH ×2 (12:57→17:30)
[2020-06-09] MEDS: venlafaxine XR 37.5mg cap (Q24H) PO SCH (12:58)
--- NOTE | 2020-06-09 18:20 | NUR ---
Patient in room QUE 356. I have received report from Alexus CANO and had the opportunity to ask questions and assume patient care with Jenn CANO.
--- NOTE | 2020-06-09 18:57 | NUR ---
Problems reprioritized. Patient report given, questions answered & plan of care reviewed with Jenn RN and student.
[2020-06-09 20:00] VITALS: BP 126/72
--- NOTE | 2020-06-09 20:00 | NUR ---
Physical Assessment Note: Patient hesitant and resistive to physical assessment. Patient allowed RN to auscultate heart, lungs, and abdomen. Patient hesitant to have RN assess skin and pupils. Patient poor historian for bowel and bladder function. Patient pleasant despite assertion that staff "doesn't know anything that's going on" and that "people are trying to trick me and keep lots of things in my small pill".
[2020-06-09] MEDS: traZODone 50mg tablet PO SCH (20:35)
--- NOTE | 2020-06-10 06:19 | NUR ---
Problems reprioritized. Patient report given, questions answered & plan of care reviewed with Aiyana CANO.
[2020-06-10] MEDS: lactobacillus rhamnosus 10,000 MMU CELLS/CAPSULE PO SCH ×3 (07:30→16:59)
[2020-06-10 08:00] VITALS: BP 114/62
[2020-06-10] MEDS: K and/or MAG REPLACEMENT MC SCH ×2 (08:00→20:00)
[2020-06-10] MEDS: venlafaxine XR 37.5mg cap (Q24H) PO SCH (08:22)
[2020-06-10 18:00] VITALS: BP 105/53
--- NOTE | 2020-06-10 18:13 | NUR ---
Problems reprioritized. Patient report given, questions answered & plan of care reviewed with JEROME Campbell.
[2020-06-10] MEDS: traZODone 50mg tablet PO SCH (19:26)
--- NOTE | 2020-06-11 06:03 | NUR ---
Problems reprioritized. Patient report given, questions answered & plan of care reviewed with Elvira CANO.
--- NOTE | 2020-06-11 06:43 | NUR ---
Patient in room QUE 356. I have received report from JEROME Campbell and had the opportunity to ask questions and assume patient care.
[2020-06-11 07:00] VITALS: BP 105/54
[2020-06-11] MEDS: lactobacillus rhamnosus 10,000 MMU CELLS/CAPSULE PO SCH ×3 (07:30→17:30)
[2020-06-11] MEDS: K and/or MAG REPLACEMENT MC SCH ×2 (08:00→19:49)
[2020-06-11] MEDS: venlafaxine XR 37.5mg cap (Q24H) PO SCH (08:03)
[2020-06-11 11:00] VITALS: BP 90/48
--- NOTE | 2020-06-11 18:27 | NUR ---
Patient in room QUE 356. I have received report from Elvira CANO and had the opportunity to ask questions and assume patient care.
[2020-06-11 18:30] VITALS: BP 131/50
--- NOTE | 2020-06-11 18:47 | NUR ---
Problems reprioritized. Patient report given, questions answered & plan of care reviewed with JEROME Schumacher.
[2020-06-11] MEDS: traZODone 50mg tablet PO SCH (19:46)
[2020-06-12] VITALS: BP 111/67
--- NOTE | 2020-06-12 06:41 | NUR ---
Patient in room QUE 345. I have received report from JINA CANO and had the opportunity to ask questions and assume patient care.
--- NOTE | 2020-06-12 06:45 | NUR ---
Problems reprioritized. Patient report given, questions answered & plan of care reviewed with Carlos RN.
[2020-06-12] MEDS: lactobacillus rhamnosus 10,000 MMU CELLS/CAPSULE PO SCH ×2 (07:30→17:30)
[2020-06-12 07:41] VITALS: BP 95/55
[2020-06-12] MEDS: venlafaxine XR 37.5mg cap (Q24H) PO SCH (07:55)
[2020-06-12] MEDS: K and/or MAG REPLACEMENT MC SCH ×2 (08:00→20:00)
--- NOTE | 2020-06-12 12:14 | NUR ---
Late entry: Around 11:20 am, I asked Dr. Duffy when she was at the nurse's station about this patient having smelly urine and I asked her if we can get UA order, she said no need for UA.
--- NOTE | 2020-06-12 18:27 | NUR ---
Problems reprioritized. Patient report given, questions answered & plan of care reviewed with Jaquelin CANO.
[2020-06-12 18:30] VITALS: BP 101/63
--- NOTE | 2020-06-12 18:30 | NUR ---
Patient in room QUE 356. I have received report from Carlos CANO and had the opportunity to ask questions and assume patient care.
[2020-06-12] MEDS: traZODone 50mg tablet PO SCH (20:41)
--- NOTE | 2020-06-13 06:43 | NUR ---
Problems reprioritized. Patient report given, questions answered & plan of care reviewed with Autumn CANO.
--- NOTE | 2020-06-13 07:11 | NUR ---
Patient in room QUE 356A. I have received report from JREOME MURO and had the opportunity to ask questions and assume patient care.
[2020-06-13] MEDS: lactobacillus rhamnosus 10,000 MMU CELLS/CAPSULE PO SCH (07:30)
[2020-06-13] MEDS: K and/or MAG REPLACEMENT MC SCH ×2 (08:00→19:56)
[2020-06-13] MEDS: venlafaxine XR 37.5mg cap (Q24H) PO SCH (08:51)
[2020-06-13 11:00] VITALS: BP 118/57
--- NOTE | 2020-06-13 18:15 | NUR ---
Patient in room QUE 356. I have received report from Autumn CANO and had the opportunity to ask questions and assume patient care.
--- NOTE | 2020-06-13 18:20 | NUR ---
Patient in room QUE 356. I have received report from Autumn CANO and had the opportunity to ask questions and assume patient care.
--- NOTE | 2020-06-13 18:35 | NUR ---
Problems reprioritized. Patient report given, questions answered & plan of care reviewed with JEROME MURO.
[2020-06-13 19:00] VITALS: BP 100/64
[2020-06-13] MEDS: traZODone 50mg tablet PO SCH (19:08)
[2020-06-13 22:08] LABS: CLARITY,URINE SLIGHTLY CLOUDY (Clear); COLOR,URINE YELLOW (Yellow); GLUCOSE, URINE NEGATIVE (Neg); KETONES,URINE NEGATIVE (Neg); LEUKOCYTE ESTERASE ,URINE SMALL (Neg); NITRITES, URINE NEGATIVE (Neg); OCCULT BLOOD,URINE NEGATIVE (Neg); PROTEIN,URINE NEGATIVE (Neg); UROBILINOGEN,URINE 0.2 E.U/dL (0.2-1.0)
[2020-06-13 22:15] LABS: UA COLLECTION TYPE CLN CATCH MIDSTREAM
[2020-06-13 22:17] LABS: BACTERIA,URINE 1+ /HPF (Neg); RBC,URINE NONE SEEN /HPF (0-2); SQUAMOUS EPITHELIAL CELL,UR FEW /LPF (FEW)
--- NOTE | 2020-06-14 06:35 | NUR ---
Problems reprioritized. Patient report given, questions answered & plan of care reviewed with Christiane CANO.
--- NOTE | 2020-06-14 06:45 | NUR ---
Patient in room QUE 356. I have received report from Jaquelin CANO and had the opportunity to ask questions and assume patient care.
[2020-06-14 07:25] VITALS: BP 96/52
[2020-06-14] MEDS: K and/or MAG REPLACEMENT MC SCH ×2 (08:00→20:00)
[2020-06-14] MEDS: venlafaxine XR 37.5mg cap (Q24H) PO SCH (08:10)
[2020-06-14] MEDS: magnesium hydroxide 30ml (MOM) UD suspension PO PRN (14:02)
--- NOTE | 2020-06-14 18:35 | NUR ---
Problems reprioritized. Patient report given, questions answered & plan of care reviewed with Endy CANO.
--- NOTE | 2020-06-14 18:38 | NUR ---
Patient in room QUE 356. I have received report from LISA CANO and had the opportunity to ask questions and assume patient care.
[2020-06-14 19:24] VITALS: BP 106/56
[2020-06-14] MEDS: traZODone 50mg tablet PO SCH (20:49)
--- NOTE | 2020-06-15 06:30 | NUR ---
Problems reprioritized. Patient report given, questions answered & plan of care reviewed with FELIPA CANO.
[2020-06-15 08:00] VITALS: BP 99/49
[2020-06-15] MEDS: K and/or MAG REPLACEMENT MC SCH ×2 (08:00→20:00)
[2020-06-15] MEDS: venlafaxine XR 37.5mg cap (Q24H) PO SCH (08:03)
[2020-06-15 20:00] VITALS: BP 124/72
[2020-06-15] MEDS: traZODone 50mg tablet PO SCH ×2 (20:00→23:18)
--- NOTE | 2020-06-15 21:57 | NUR ---
Problems reprioritized. Patient report given, questions answered & plan of care reviewed with mello butts.
--- NOTE | 2020-06-15 22:05 | NUR ---
Patient in room QUE 356. I have received report from ANNA CANO and had the opportunity to ask questions and assume patient care.
--- NOTE | 2020-06-16 06:30 | NUR ---
Problems reprioritized. Patient report given, questions answered & plan of care reviewed with VIK CANO.
[2020-06-16] MEDS: K and/or MAG REPLACEMENT MC SCH ×2 (08:00→20:00)
[2020-06-16] MEDS: venlafaxine XR 37.5mg cap (Q24H) PO SCH (08:15)
--- NOTE | 2020-06-16 09:14 | NUR ---
Reassessment: Pt continues eating well with documented 75-100% PO intake with occasional 50% PO intake on regular diet. Pt meeting estimated nutrient needs. Food preferences are being honored, pt now receiving a strawberry shake TID per RN request. [facility] 06/15 per I&O. Will continue to follow. Recommendations: 1. Continue regular diet, chopped meat 2. [place] patient's food preferences: fruit, cottage cheese, strawberry yogurt WL; strawberry shake TID 3. Routine bowel care 4. Weekly scaled wts Addendum: 06/16/20 at [address] Amended: Links added.
[2020-06-16 11:00] VITALS: BP 98/48
--- NOTE | 2020-06-16 18:19 | NUR ---
Problems reprioritized. Patient report given, questions answered & plan of care reviewed with Alee RN's.
[2020-06-16 19:00] VITALS: BP 120/82
[2020-06-16] MEDS: traZODone 50mg tablet PO SCH (20:32)
--- NOTE | 2020-06-17 06:09 | NUR ---
Problems reprioritized. Patient report given, questions answered & plan of care reviewed with Kenia CANO. Addendum: 06/17/20 at 0611 by Jenn Workman RN Amended: Links added.
[2020-06-17 08:00] VITALS: BP 92/55
[2020-06-17] MEDS: K and/or MAG REPLACEMENT MC SCH ×2 (08:00→20:00)
[2020-06-17] MEDS: magnesium hydroxide 30ml (MOM) UD suspension PO PRN (08:15)
[2020-06-17] MEDS: venlafaxine XR 37.5mg cap (Q24H) PO SCH (08:15)
[2020-06-17 12:58] VITALS: BP 118/66
--- NOTE | 2020-06-17 18:27 | NUR ---
Problems reprioritized. Patient report given, questions answered & plan of care reviewed with Jenn & Hien Bledsoe.
--- NOTE | 2020-06-17 18:40 | NUR ---
Patient in room QUE 356. I have received report from Kenia CANO and had the opportunity to ask questions and assume patient care. Addendum: 06/18/20 at 0052 by Jenn Workman RN Amended: Links added.
[2020-06-17 20:00] VITALS: BP 111/71
[2020-06-17] MEDS: traZODone 50mg tablet PO SCH (21:19)
[2020-06-18 06:30] VITALS: BP 103/62
--- NOTE | 2020-06-18 06:37 | NUR ---
Problems reprioritized. Patient report given, questions answered & plan of care reviewed with Nga CANO. Addendum: 06/18/20 at 0637 by Jenn Workman RN Amended: Links added.
--- NOTE | 2020-06-18 06:45 | NUR ---
Patient in room QUE 356. I have received report from JEROME Barajas and had the opportunity to ask questions and assume patient care.
[2020-06-18] MEDS: K and/or MAG REPLACEMENT MC SCH ×2 (07:15→20:00)
[2020-06-18] MEDS: magnesium hydroxide 30ml (MOM) UD suspension PO PRN (08:16)
[2020-06-18] MEDS: venlafaxine XR 37.5mg cap (Q24H) PO SCH (08:17)
[2020-06-18 16:52] LABS: CLARITY,URINE CLOUDY (Clear); COLOR,URINE YELLOW (Yellow); GLUCOSE, URINE NEGATIVE (Neg); KETONES,URINE NEGATIVE (Neg); LEUKOCYTE ESTERASE ,URINE SMALL (Neg); NITRITES, URINE NEGATIVE (Neg); OCCULT BLOOD,URINE NEGATIVE (Neg); PH,URINE 6.5 (4.8-8.0); PROTEIN,URINE NEGATIVE (Neg); UROBILINOGEN,URINE 0.2 E.U/dL (0.2-1.0)
[2020-06-18 16:57] LABS: UA COLLECTION TYPE NON-SPECIFIED
[2020-06-18 16:58] LABS: BACTERIA,URINE 4+ /HPF (Neg); MUCUS STRANDS FEW /LPF (Neg); RBC,URINE NONE SEEN /HPF (0-2); SQUAMOUS EPITHELIAL CELL,UR FEW /LPF (FEW); WBC,URINE 0-4 /HPF (0-4)
[2020-06-18 18:00] VITALS: BP 110/59
--- NOTE | 2020-06-18 18:00 | NUR ---
Patient in room QUE 356. I have received report from Carlos CANO and had the opportunity to ask questions and assume patient care. Addendum: 06/18/20 at 1847 by Suyapa Storm RN Amended: Links added.
--- NOTE | 2020-06-18 18:40 | NUR ---
Problems reprioritized. Patient report given, questions answered & plan of care reviewed with JEROME Dale.
--- NOTE | 2020-06-18 20:00 | NUR ---
pt. awake laying in A & O at this time. Pt. denies any pain at this time. Encouraged pt. to drink water to facilitate system flushing; pt. verbalized understanding. Addendum: 06/18/20 at 2240 by Suyapa Storm RN Amended: Links added.
[2020-06-18] MEDS: traZODone 50mg tablet PO SCH (22:11)
[2020-06-19] VITALS: BP 94/48
--- NOTE | 2020-06-19 05:00 | NUR ---
Pt. voided x 1 for 400ml with foul smell urine noted. Pt. c/o urgency and frequency episodes though voided only once this shift Bedside commode at the bedside for easy access. Changed pt's linen and the gown r/t soilage. Pt. slept better for the most part of the night. Addendum: 06/19/20 at 0706 by Suyapa Storm RN Amended: Links added.
--- NOTE | 2020-06-19 05:00 | NUR ---
PtStephanie slept well this shift. No c/o pain or agitation. Addendum: 06/19/20 at 0634 by Suyapa Storm RN Amended: Links added.
--- NOTE | 2020-06-19 06:00 | NUR ---
Problems reprioritized. Patient report given, questions answered & plan of care reviewed with Nga CANO. Addendum: 06/19/20 at 0633 by Suyapa Storm RN Amended: Links added.
[2020-06-19 06:30] VITALS: BP 101/50
--- NOTE | 2020-06-19 06:30 | NUR ---
Patient in room QUE 356. I have received report from JEROME Dale and had the opportunity to ask questions and assume patient care.
[2020-06-19] MEDS: K and/or MAG REPLACEMENT MC SCH ×2 (07:23→19:06)
[2020-06-19] MEDS: venlafaxine XR 37.5mg cap (Q24H) PO SCH (08:07)
--- NOTE | 2020-06-19 18:30 | NUR ---
Patient in room QUE 341. I have received report from Nga CANO and had the opportunity to ask questions and assume patient care.
--- NOTE | 2020-06-19 18:35 | NUR ---
Problems reprioritized. Patient report given, questions answered & plan of care reviewed with JEROME Avelar.
[2020-06-19] MEDS: traZODone 50mg tablet PO SCH (19:07)
--- NOTE | 2020-06-19 22:24 | NUR ---
pt refused vitals. will try again at midnight Addendum: 06/19/20 at 2225 by Rosio Khan RN Amended: Links added.
[2020-06-20] VITALS: BP 106/59
--- NOTE | 2020-06-20 06:35 | NUR ---
Problems reprioritized. Patient report given, questions answered & plan of care reviewed with Debbie CANO.
--- NOTE | 2020-06-20 06:37 | NUR ---
Patient in room QUE 341. I have received report from sandro CANO and had the opportunity to ask questions and assume patient care.
--- NOTE | 2020-06-20 06:39 | NUR ---
Patient in room QUE 341. I have received report from JEROME Avelar and had the opportunity to ask questions and assume patient care.
[2020-06-20 07:00] VITALS: BP 132/81
[2020-06-20] MEDS: K and/or MAG REPLACEMENT MC SCH ×2 (08:00→20:00)
[2020-06-20] MEDS: venlafaxine XR 37.5mg cap (Q24H) PO SCH (09:53)
--- NOTE | 2020-06-20 18:23 | NUR ---
Problems reprioritized. Patient report given, questions answered & plan of care reviewed with JEROME LECHUGA. Addendum: 06/20/20 at 1828 by Sandy Flanagan STUDENT ABRIL REPORT GIVEN TO WRONG NURSE, REPORT DAPHNIE TO JEROME VIDAL
--- NOTE | 2020-06-20 18:25 | NUR ---
patient non compliznt with meds this am. Wanting to barter with meds vrs getting icecream, soda, moving rooms. Agreed to take meds mid morning. Resting on and off bed, wanting very much to return to room which had needed maintenance. patient will be moved on Noc shift. patient aware and compliant.
--- NOTE | 2020-06-20 18:27 | NUR ---
Student documentation: I have reviewed and agree with all interventions, assessments performed and documented by Sandy irwin.
--- NOTE | 2020-06-20 18:37 | NUR ---
Problems reprioritized. Patient report given, questions answered & plan of care reviewed with Endy CANO.
--- NOTE | 2020-06-20 18:40 | NUR ---
Patient in room QUE 357. I have received report from ANNA CANO and had the opportunity to ask questions and assume patient care.
[2020-06-20] MEDS: traZODone 50mg tablet PO SCH (22:11)
--- NOTE | 2020-06-21 06:07 | NUR ---
Problems reprioritized. Patient report given, questions answered & plan of care reviewed with ANNA CANO.
--- NOTE | 2020-06-21 06:19 | NUR ---
Patient in room QUE 357. I have received report from sandro CANO and had the opportunity to ask questions and assume patient care.
[2020-06-21 06:30] VITALS: BP 102/69
[2020-06-21] MEDS: K and/or MAG REPLACEMENT MC SCH ×2 (08:00→19:22)
[2020-06-21] MEDS: venlafaxine XR 37.5mg cap (Q24H) PO SCH (08:06)
[2020-06-21 11:00] VITALS: BP 122/81
--- NOTE | 2020-06-21 17:51 | NUR ---
no new concerns with patient. took meds this am with much discussion , eport given to sandro CANO Addendum: 06/21/20 at 1804 by Debbie Cao RN Report given to Endy CANO
--- NOTE | 2020-06-21 18:30 | NUR ---
Patient in room QUE 357. I have received report from ANNA CANO and had the opportunity to ask questions and assume patient care.
[2020-06-21 20:00] VITALS: BP 119/67
[2020-06-21] MEDS: traZODone 50mg tablet PO SCH (20:48)
--- NOTE | 2020-06-22 06:23 | NUR ---
Problems reprioritized. Patient report given, questions answered & plan of care reviewed with BRANDON CANO.
[2020-06-22 07:00] VITALS: BP 89/45
--- NOTE | 2020-06-22 07:07 | NUR ---
Patient in room QUE 357. I have received report from JEROME Schumacher and had the opportunity to ask questions and assume patient care.
[2020-06-22] MEDS: K and/or MAG REPLACEMENT MC SCH ×2 (08:00→19:20)
[2020-06-22] MEDS: venlafaxine XR 37.5mg cap (Q24H) PO SCH (08:39)
--- NOTE | 2020-06-22 09:32 | NUR ---
Reassessment: Pt continues eating well with documented 75-100% PO intake with occasional 25-50% PO intake on regular diet. Pt meeting estimated nutrient needs. Food preferences are being honored, see below. [facility] 06/21. No further nutrition intervention implemented at this time. Will continue to follow. Recommendations: 1. Continue regular diet, chopped meat 2. [place] patient's food preferences: fruit, cottage cheese, strawberry yogurt WL; strawberry shake TID 3. Routine bowel care 4. Weekly scaled wts Addendum: 06/22/20 at [address] Amended: Links added.
--- NOTE | 2020-06-22 18:31 | NUR ---
Problems reprioritized. Patient report given, questions answered & plan of care reviewed with JEROME Schumacher.
--- NOTE | 2020-06-22 18:35 | NUR ---
Patient in room QUE 357. I have received report from BRANDON CANO and had the opportunity to ask questions and assume patient care.
[2020-06-22 19:00] VITALS: BP 118/60
[2020-06-22] MEDS: traZODone 50mg tablet PO SCH (19:45)
--- NOTE | 2020-06-23 06:27 | NUR ---
Problems reprioritized. Patient report given, questions answered & plan of care reviewed with DEAN CANO.
--- NOTE | 2020-06-23 06:28 | NUR ---
Patient in room QUE 357. I have received report from Trudy CANO and had the opportunity to ask questions and assume patient care.
[2020-06-23 07:00] VITALS: BP 126/66
[2020-06-23] MEDS: K and/or MAG REPLACEMENT MC SCH ×2 (08:00→20:00)
[2020-06-23] MEDS: venlafaxine XR 37.5mg cap (Q24H) PO SCH (08:01)
[2020-06-23 11:28] LABS: BASOPHILS % (AUTO) 0.4 % (0-1); EOSINOPHILS # (AUTO) 0.1 X10'3 (0-0.9); EOSINOPHILS % (AUTO) 1.2 % (0-6); HEMATOCRIT 38.6 % (35.0-45.0); LYMPHOCYTES # (AUTO) 1.4 X10'3 (1.1-4.8); LYMPHOCYTES % (AUTO) 31.9 % (21-51); MEAN CORPUSCULAR HEMOGLOBIN 31.9 PG (27.0-31.0); MEAN CORPUSCULAR HGB CONC 33.6 g/dL (33.0-36.5); MEAN PLATELET VOLUME 6.3 FL (7.4-10.4); MONOCYTES # (AUTO) 0.3 X10'3 (0-0.9); MONOCYTES % (AUTO) 5.9 % (2-12); NEUTROPHILS # (AUTO) 2.7 X10'3 (1.8-7.7); NEUTROPHILS % (AUTO) 60.6 % (42-75); PLATELET COUNT 244 X10'3 (140-440); RED BLOOD COUNT 4.06 X10'6 (4.20-5.60); WHITE BLOOD COUNT 4.5 X10'3 (4.5-11.0)
[2020-06-23 11:33] LABS: ALANINE AMINOTRANSFERASE 22 U/L (12-78); ALBUMIN 3.1 G/DL (3.4-5.0); ALBUMIN/GLOBULIN RATIO 0.9 (1.1-1.5); ALKALINE PHOSPHATASE 84 IU/L (46-116); ANION GAP 6 (8-16); ASPARTATE AMINO TRANSFERASE 11 U/L (10-37); BILIRUBIN,TOTAL 0.2 MG/DL (0.1-1.0); BLOOD UREA NITROGEN 19 MG/DL (7-18); BUN/CREATININE RATIO 33.9 (6.6-38.0); CALCIUM 8.5 MG/DL (8.5-10.1); CHLORIDE 106 MMOL/L (99-107); CREATININE 0.56 MG/DL (0.40-0.90); GLUCOSE 87 MG/DL (70-104); SODIUM 143 MMOL/L (135-145); TOTAL CARBON DIOXIDE 31.3 MMOL/L (24-32); TOTAL PROTEIN 6.6 G/DL (6.4-8.2); eGFR > 90 ML/MIN
[2020-06-23 11:53] LABS: HIV ANTIBODY 1&2 RAPID NON-REACTIVE (Neg)
--- NOTE | 2020-06-23 18:25 | NUR ---
Patient in room QUE 354. I have received report from JEROME Easton and had the opportunity to ask questions and assume patient care.
[2020-06-23 19:00] VITALS: BP 103/77
[2020-06-23] MEDS: traZODone 50mg tablet PO SCH (20:42)
--- NOTE | 2020-06-24 05:08 | NUR ---
Patient is doing well, he was turned every 2 hours during the shift, he has been cleaned up and bed remade.
--- NOTE | 2020-06-24 06:25 | NUR ---
Patient in room QUE 357. I have received report from JEROME Nascimento and had the opportunity to ask questions and assume patient care.
[2020-06-24 06:30] VITALS: BP 110/56
--- NOTE | 2020-06-24 06:34 | NUR ---
Problems reprioritized. Patient report given, questions answered & plan of care reviewed with ZULEMA RN.
[2020-06-24] MEDS: K and/or MAG REPLACEMENT MC SCH ×2 (07:45→20:00)
[2020-06-24] MEDS: venlafaxine XR 37.5mg cap (Q24H) PO SCH (08:54)
[2020-06-24] MEDS: magnesium hydroxide 30ml (MOM) UD suspension PO PRN (09:06)
[2020-06-24 14:31] LABS: HBSAG SCREEN Negative (Negative); HEP A AB, IGM Negative (Negative); HEPATITIS C ANTIBODY <0.1 s/co ratio (0.0-0.9)
--- NOTE | 2020-06-24 18:30 | NUR ---
Problems reprioritized. Patient report given, questions answered & plan of care reviewed with JEROME Sherman.
--- NOTE | 2020-06-24 18:54 | NUR ---
Patient in room QUE 357. I have received report from ZULEMA CANO and had the opportunity to ask questions and assume patient care. Addendum: 06/24/20 at 1855 by Whit Barreto RN Amended: Links added.
[2020-06-24 19:00] VITALS: BP 138/76
[2020-06-24] MEDS: zolpidem 5mg tablet PO PRN (19:58)
[2020-06-24] MEDS: traZODone 50mg tablet PO SCH (20:00)
[2020-06-24] MEDS: acetaminophen 325mg tablet PO PRN (20:02)
[2020-06-25 06:30] VITALS: BP 110/59
--- NOTE | 2020-06-25 06:30 | NUR ---
Patient in room QUE 357. I have received report from JEROME Sherman and had the opportunity to ask questions and assume patient care.
--- NOTE | 2020-06-25 06:44 | NUR ---
Problems reprioritized. Patient report given, questions answered & plan of care reviewed with ZULEMA CANO. Addendum: 06/25/20 at 0644 by Whit Barreto RN Amended: Links added.
[2020-06-25] MEDS: K and/or MAG REPLACEMENT MC SCH ×2 (08:00→20:00)
[2020-06-25] MEDS: venlafaxine XR 37.5mg cap (Q24H) PO SCH (08:12)
[2020-06-25 11:00] VITALS: BP 126/62
[2020-06-25] MEDS: magnesium hydroxide 30ml (MOM) UD suspension PO PRN (16:53)
--- NOTE | 2020-06-25 18:20 | NUR ---
Problems reprioritized. Patient report given, questions answered & plan of care reviewed with JEROME Sherman.
[2020-06-25 19:00] VITALS: BP 113/81
[2020-06-25] MEDS: traZODone 50mg tablet PO SCH (20:00)
--- NOTE | 2020-06-25 20:00 | NUR ---
pt refused trazadone and with showing her the meds finally accepted to take tylenol and ambien for sleep. pt took some sips of warm prune juice with apple juice butter and hot water. said she liked it but didn't want to drink all of it afraid of having diarrhea, but has not had a bm in 4 days.
[2020-06-25] MEDS: zolpidem 5mg tablet PO PRN (20:50)
[2020-06-25] MEDS: acetaminophen 325mg tablet PO PRN (20:53)
[2020-06-26 00:12] VITALS: BP 131/63
--- NOTE | 2020-06-26 02:39 | NUR ---
pt awake in the room drinking tea. stated no bm. frustrated she's not sleeping right now.
--- NOTE | 2020-06-26 05:03 | NUR ---
pt standing in room staring at the bathroom door.
[2020-06-26 06:30] VITALS: BP 120/67
--- NOTE | 2020-06-26 06:45 | NUR ---
Patient in room QUE 357. I have received report from JEROME Sherman and had the opportunity to ask questions and assume patient care.
--- NOTE | 2020-06-26 06:50 | NUR ---
Problems reprioritized. Patient report given, questions answered & plan of care reviewed with ZULEMA CANO. Addendum: 06/26/20 at 0650 by Whit Barreto RN Amended: Links added.
[2020-06-26] MEDS: K and/or MAG REPLACEMENT MC SCH ×2 (08:00→20:00)
[2020-06-26] MEDS: venlafaxine XR 37.5mg cap (Q24H) PO SCH (08:17)
[2020-06-26] MEDS: magnesium hydroxide 30ml (MOM) UD suspension PO PRN ×2 (08:35→22:05)
--- NOTE | 2020-06-26 18:15 | NUR ---
Problems reprioritized. Patient report given, questions answered & plan of care reviewed with JEROME Sherman.
--- NOTE | 2020-06-26 18:39 | NUR ---
Patient in room QUE 357. I have received report from ZULEMA CANO and had the opportunity to ask questions and assume patient care. Addendum: 06/26/20 at 1840 by Whit Barreto RN Amended: Links added.
[2020-06-26 18:58] VITALS: BP 126/65
--- NOTE | 2020-06-26 21:05 | NUR ---
call to Dr Soto who had admitted this pt in April and pt has been evaluated by tele psych , pt refusing her Trazadone at night and requesting we get and give her what the tele psych recommended. Received orders from Dr Roy to dc the Trazadone and start doses of Effexor xr 75mg in Am and mirazapine po at hs as is recommended for her.
[2020-06-26] MEDS: mirtazapine 15mg tablet PO SCH (21:52)
--- NOTE | 2020-06-26 22:12 | NUR ---
PT REFUSED WARM PRUNE JUICE MIX SAID SHE FEELS REALLY CONSTIPATED AND ITS PUSHING ON HER BLADDER. PT STATES SHE DOES NOT WANT ANOTHER SUPPOSITORY WOULD TAKE mOM TO SEE IF IT WILL HELP HER. GAVE HER WARM DECAF TEA TO DRINK WELL. PT C/O LEFT SHOULDER PAIN DID NOT WANT TYLENOL BUT ACCEPTED A WARM PACK FOR IT AND SAID THAT WAS HELPING. pt sipping on her tea. no other complaints and pt said she was glad to be able to start what the Becki Killian suggested for her. She said"I Want To Get Better". she took the 7.5mg dose of remeron tonight.
--- NOTE | 2020-06-27 06:48 | NUR ---
Patient in room QUE 357. I have received report from Whit CANO and had the opportunity to ask questions and assume patient care.
[2020-06-27 07:41] VITALS: BP 114/52
[2020-06-27] MEDS: K and/or MAG REPLACEMENT MC SCH ×2 (08:00→20:00)
[2020-06-27] MEDS: venlafaxine XR 75mg capsule (Q24H) PO SCH (08:02)
[2020-06-27] MEDS: docusate sod 100mg capsule PO PRN (09:38)
[2020-06-27 11:00] VITALS: BP 103/58
--- NOTE | 2020-06-27 18:18 | NUR ---
Problems reprioritized. Patient report given, questions answered & plan of care reviewed with Whit CANO.
--- NOTE | 2020-06-27 18:41 | NUR ---
Patient in room QUE 357. I have received report from PAM CANO and had the opportunity to ask questions and assume patient care. Addendum: 06/27/20 at 1842 by Whit Barreto RN Amended: Links added.
[2020-06-27 19:00] VITALS: BP 119/66
[2020-06-27] MEDS: mirtazapine 15mg tablet PO SCH (21:26)
[2020-06-27] MEDS: zolpidem 5mg tablet PO PRN (21:27)
[2020-06-27 23:28] VITALS: BP 123/45
--- NOTE | 2020-06-28 06:36 | NUR ---
Problems reprioritized. Patient report given, questions answered & plan of care reviewed with PAM CANO. Addendum: 06/28/20 at 0636 by Whit Barreto RN Amended: Links added.
--- NOTE | 2020-06-28 06:45 | NUR ---
Patient in room QUE 357. I have received report from Whit CANO and had the opportunity to ask questions and assume patient care.
[2020-06-28] MEDS: K and/or MAG REPLACEMENT MC SCH ×2 (08:00→20:00)
[2020-06-28] MEDS: venlafaxine XR 75mg capsule (Q24H) PO SCH (08:03)
--- NOTE | 2020-06-28 17:09 | NUR ---
PAGER ID: [phone] MESSAGE: Tatyana Baez [id number]- Pt took Ambien last night and had nightmares, can we change it to Restoril please. Thank you. Sarahy Zimmer :)
--- NOTE | 2020-06-28 18:37 | NUR ---
Problems reprioritized. Patient report given, questions answered & plan of care reviewed with Roberto Iglesias.
[2020-06-28] MEDS: mirtazapine 15mg tablet PO SCH (20:35)
--- NOTE | 2020-06-29 06:07 | NUR ---
Problems reprioritized. Patient report given, questions answered & plan of care reviewed with JEROME Leyva.
--- NOTE | 2020-06-29 06:58 | NUR ---
Patient in room QUE 357B. I have received report from JEROME HARDEN and had the opportunity to ask questions and assume patient care.
[2020-06-29 07:00] VITALS: BP 102/62
[2020-06-29] MEDS: venlafaxine XR 75mg capsule (Q24H) PO SCH (07:55)
[2020-06-29] MEDS: K and/or MAG REPLACEMENT MC SCH (08:00)
--- NOTE | 2020-06-29 13:30 | NUR ---
PATIENT STABLE AND APPROPRIATE FOR TRANSFER, PATIENT TRANSFERRED TO [facility], ALL BELONGINGS SENT WITH PATIENT, REPORT CALLED TO JEROME DIALLO FROM [facility], PATIENT TAKEN TO [facility] BY AMBULANCE WITH THEIR STAFF
== END 2020-06-29 13:30 | DRG 690 ==
LOC: ER 15:32 → ED HOLD 04-23 12:14 → SUR 3N 04-23 16:56 → ORTHO 4S 05-05 17:55 → SUR 3N 05-09 14:02
PROVIDERS: ADMIT Family Medicine; ATTEND Family Medicine
DX: N39.0 Urinary tract infection, site not specified (principal); F33.1 Major depressive disorder, recurrent, moderate; G91.9 Hydrocephalus, unspecified; Z68.1 Body mass index [BMI] 19.9 or less, adult; F02.81 Dementia in other diseases classified elsewhere, unspecified severity, with behavioral disturbance; S00.83XA Contusion of other part of head, initial encounter; R62.7 Adult failure to thrive; X58.XXXA Exposure to other specified factors, initial encounter; F43.10 Post-traumatic stress disorder, unspecified; Z66 Do not resuscitate; F20.9 Schizophrenia, unspecified; G30.9 Alzheimer's disease, unspecified; G47.00 Insomnia, unspecified; K59.00 Constipation, unspecified; I10 Essential (primary) hypertension; B96.4 Proteus (mirabilis) (morganii) as the cause of diseases classified elsewhere; E03.9 Hypothyroidism, unspecified; Z90.710 Acquired absence of both cervix and uterus; Z79.899 Other long term (current) drug therapy; Y93.89 Activity, other specified; Y92.89 Other specified places as the place of occurrence of the external cause; Y99.8 Other external cause status; Z59.0 Homelessness; Z81.8 Family history of other mental and behavioral disorders; Z82.3 Family history of stroke; Z82.49 Family history of ischemic heart disease and other diseases of the circulatory system; Z85.42 Personal history of malignant neoplasm of other parts of uterus; Z91.14 Patient's other noncompliance with medication regimen
CPT/HCPCS: 36415; 70450; 80053; 80305; 80320; 81001; 83735; 84443; 85025; 86592; 86703; 86705; 86706; 86709; 86803; 87077; 87081; 87088; 87186; 87340; 87426; 97116; 97161; 99285; G0378

== ENCOUNTER 2022-09-26 03:50 | Emergency (ER) | payer MEDICARE, MEDICAID ==
[~2022-09-26] VITALS: Ht 172.7 cm; Wt 93.2 kg
[~2022-09-26 03:50] MED LIST changes: -CEPH250T PO; +EFF37.5XRC PO; -NITR100C6 PO; -NO HOME MEDS; -OLAN5TAB5 PO; -OXYB5TAB16 PO; -QUET25TA PO; +QUET25TA36 PO
[2022-09-26 04:11] VITALS: BP 112/84; TEMP 98.1
[2022-09-26] MEDS ORDERED: DOXYCYCLINE 100MG CAPSULE PO STA (04:57)
[2022-09-26] MEDS ORDERED: ondansetron 4mg rapidly disintigrating tab PO ONE (05:00)
[2022-09-26] MEDS ORDERED: DOXY-356 PO (05:02)
[2022-09-26] MEDS ORDERED: BENZ-38 PO (05:02)
[2022-09-26] MEDS ORDERED: prednisone 10mg tablet PO ONE (05:05)
[2022-09-26] MEDS ORDERED: triamcinolone acetonide 40mg/ml inj IM ONE (05:05)
[2022-09-26] MEDS ORDERED: ipratropium/albuterol 3ml nebule NEB ONE (05:05)
[2022-09-26 05:23] VITALS: PULSE 82; RESP 16; O2SAT 93
[2022-09-26 05:30] VITALS: PULSE 98; RESP 16; O2SAT 96
== END 2022-09-26 08:35 | disposition home or self-care (01) ==
LOC: ER 03:51
DX: J20.9 Acute bronchitis, unspecified (principal); F31.9 Bipolar disorder, unspecified; F03.90 Unspecified dementia, unspecified severity, without behavioral disturbance, psychotic disturbance, mood disturbance, and anxiety; Z79.899 Other long term (current) drug therapy
CPT/HCPCS: 71045; 94640; 96372; 99284; J3301; J7512